=== PATIENT | female | born 1935 | race Caucasian/White ===

== ENCOUNTER 2019-07-05 06:47 | Outpatient (RCR) | payer MEDICARE, SELFPAY ==
--- NOTE | 2019-06-10 15:26 | ONC CON_ITS ---
Dr. Pascual New Patient Note Patient: Almita Woodward < Unit #: [id number]: 1935 Dicatated By: Yuni Pascual M.D.Date of Visit: June 10, 2019 Onc MED New Patient/Consult Referring Physician: Yon Cervantes History of Present Illness: Mrs. 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 Tumor size was 1.8 cm. With positive surgical margin involving inferior and medial peripheral margins, less than 1 mm from lateral peripheral margin and at least 1 mm from superior peripheral margin. No lymphovascular or perineural invasion seen. T1 Patient has seen medical oncologist Dr. Cervantes in [place] on 05/21/2019 and as per his recommendations, considering patient's age and comorbid conditions, she was not a candidate for further surgery for possible surgical margins and combined chemoradiation therapy was recommended with low dose oral Xeloda e.g. 625 mg/m??? twice a day concurrent with radiation therapy. Prescription for Xeloda was given and patient already received the medication and now waiting for radiation oncology evaluation to start combined chemoradiation for anal cancer. Pelvis done on 05/28/2019 showed no discrete and a mass visualized, mild infiltration of fat along right posterior lateral aspect of and is extending into subcutaneous fat and right inguinal lymphadenopathy size about 1.5 cm. No evidence of pelvic lymphadenopathy or ascites Underwent CT PET scan on 05/28/2019 which showed increased FDG uptake within 6;00 radiation of and is and hypermetabolic right inguinal lymph node, 2 x 1.4 cm with SUV of 6.2 , likely metastatic. No evidence of metastatic disease within chest and abdomen History of atrial fibrillation, depression, arthritis, thromboembolism, CVD, hypertension Patient denies any abdominal pain, denies any melena or hematochezia, denies any diarrhea or constipation, denies any jaundice, denies any poor appetite. Patient is hard of hearing on one side. But has history of off and on palpitation due to atrial fibrillation now being managed by cardiology in [place] Past Medical History: Ms. Jensens medical history consists of anxiety, arthritis, atrial fibrillation, cerebral vascular disease, gastroesophageal reflux disease, heart valve disorder, history of skin cancer, hypertension, and stroke. Past Surgical History: Ms. Martinez surgical/procedural history consists of cataract excision, cholecystectomy, hysterectomy, right ear surgery, and colonoscopy in 2019. Medications: Nitroglycerin 1 Tablet (of 0.4 mg) Tablet, sublingual Sublingual daily PRN, Oxybutynin Chloride 1 Tablet (of 5 mg) Oral b.i.d., Pantoprazole Sodium 1 Tablet (of 40 mg) Tablet, enteric coated Oral daily, Xarelto 1 Tablet (of 10 mg) Oral daily Allergies: Aspirin Social History: Ms. Woodward is single. Ms. Woodward quit smoking 60 years ago but had smoked for 1 year. She has no history of drinking. Ms. Woodward reports the following support systems: lives alone, lives in own house, supportive family/friends willing to assist with needs, and adequate transportation available for expected visits. Her diet consists of regular meals. She indicates her activity level as: regular exercise. Family History: Ms. Woodward's mother at age 85: lung cancer, and melanoma. Ms. Woodward's father at age 55: colon cancer, and suicide. Review Of Symptoms: Constitutional - Complains of lack of appetite, fatigue and lethargy. Denies fever, night sweats, rigors / chills and change in weight, Integumentary - Denies rash and urticaria, Cardiovascular - Complains of chest pain yesterday that was relieved with nitroglycerin. Denies orthopnea and palpitations, Respiratory - Complains of dyspnea with any activity. Denies cough and hemoptysis, Gastrointestinal - Denies constipation, diarrhea, heartburn / dyspepsia, nausea and vomiting, Genitourinary (F) - Complains of incontinence, nocturia and urgency. Denies dysuria and hematuria, Musculoskeletal - Denies bone pain, joint pain and decreased range of motion, Neurologic - Denies headaches and sensory problems, Psychiatric - Complains of depression which she feels is related to her diagnosis, Hematologic/Lymphatic - Complains of easy bruising, Constitutional - She has been feeling pretty tired. Her energy level is very low. She is able to do light housework. He appetite is has decreased recently but she has been able to eat. Her weight is stable. 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 She wears a hearing aid to her left ear. No sore mouth or throat. no sinus drainage, Hematologic/Lymphatic - She bruises easily. The patient denies any tender or palpable lymph nodes, Respiratory - She gets short of breath with any activity. No cough or hemoptysis, Cardiovascular - She had anginal chest pain yesterday that was relieved with Nitroglycerin. No palpitations or orthopnea, Gastrointestinal - No nausea, vomiting, diarrhea, GI bleeding, or constipation. No change in bowel habits, no heartburn or early satiety, Genitourinary (F) - No hematuria or dysuria. She has increased frequency at night. She also has urgency with incontinence, Musculoskeletal - No joint pain, swelling or redness. No decreased range of motion, Integumentary - No chronic rashes, inflammation, ulcerations or skin changes, Neurologic - No headache or visual changes. She has neuropathy in her hands and feet, Psychiatric - Her daughter feels she has some depression and anxiety related to her diagnosis. Vital Signs: Performed on June 10, 2019 14:01: 0, 2.20 (LOW), 2.20 sq.m, 144.8 in, 96 %, 63 /min, 118 /min (HIGH), 151/80 mm(hg) (HIGH), 97.7 F (LOW), and 65.5 lbs (HIGH). Performance Status: 1 - No physically strenuous activity, but ambulatory and able to carry out light or sedentary work (e.g. office work, light house work). (ECOG) Physical Examination: ENMT - no mouth sores or thrush, Respiratory - Lungs are clear to auscultation, Cardiovascular - irregular rate and rhythm, Abdomen - soft, bowel sounds present, Extremities - trace edema,. Lab/Imaging: Most recent lab results are not available for this patient. Impression: Invasive moderately differentiated squamous cell carcinoma per excisional biopsy done on 04/26/2019 final pathology report showed tumor size 1.8 cm, with a positive surgical margins involving deep margin and inferior and medial peripheral margins and less than 1 mm from lateral peripheral margin and at least 1 mm from superior peripheral margin. No lymphovascular or perineural invasion seen T1, CT PET scan showed increase uptake at 6:00 position of anus and right inguinal lymphadenopathy, 2 x 1.4 cm with SUV of 6.2, consistent with metastatic disease . No distant metastatic disease cN1a, Mx next Stage IIIa (T1,cN1a ,Mx) History of atrial fibrillation and history of thromboembolism, on Xarelto Plan: Discussed with patient and her daughter, regarding her disease status and pathology which confirmed an invasive moderately differentiated squamous cell carcinoma involving anus, CT PET scan showed increased uptake in right inguinal lymph node size 2 x 1.4 cm with SUV of 6.2 consistent with metastatic disease e.g.cN1a and no evidence of distant metastases. Considering patient's age and comorbid condition, combined chemoradiation therapy with low-dose oral Xeloda alone, 625 mg/m??? twice a day concurrent with radiation therapy, was recommended and prescribed by Dr. Yon Cervantes , medical oncologist in [place]. Due to convenience, patient has transferred her care to [place], [place]. Patient is scheduled to see radiation oncology today. Patient has already received Xeloda and ready to start concurrent with radiation therapy. All the side effect possible benefits associated with oral Xeloda including but not limited to mouth sores, diarrhea, liver toxicity, but skin rash, bone marrow suppression, [id number] syndrome were mentioned, further teaching will be done by chemotherapy nurse. Patient will see radiation oncology today and then we'll see her back 1 week after chemoradiation is initiated, with CBC CMP. Signed By: Yuni Pascual M.D. <<Signature on File>>
--- NOTE | 2019-06-11 | CT_ITS ---
Radiation Therapy Planning CT images; total exam DLP: 747.51 mGy-cm MTDD
--- NOTE | 2019-06-11 08:19 | N.ONRAD NP_ITS ---
Radiation Oncology New Patient Visit Patient: Almita Woodward MR#: [id number] : 1935> Age: 84> Sex: Female> Dictated by: Dr. Topher Joseph Date of Service: 06/10/2019 Referring Physician(s) : Yon Cervantes M.D. 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 She underwent local excision of her primary anal malignancy on May 03, 2019 we were asked to see her regarding the role of definitive radiation therapy in combination with Xeloda oral chemotherapy Radiotherapy to date: Summary > No prior radiation therapy. Chief Complaint / History of Present Illness: Ms. Almita Woodward is a independent relatively healthy 84-year-old woman. She noted painless rectal bleeding and a mass felt around the anus earlier this year. She was seen by her colorectal surgeon and underwent excision on May 03, 2019. This revealed grad2, moderately differentiated squamous cell carcinoma in a 1.8 cm tumor with involved inked deep margin and inferior and medial peripheral margins of resection less than 1 mm from the lateral peripheral margin at least 1 mm from the superior peripheral margin. No lympho-vascular or perineural invasion was noted. A p16 IHC assessment for HPV was not performed. Additional surgery was felt to be contraindicated as it would compromise anal sphincter function. Following surgery she has healed she has no bleeding or mass noted she has normal bowel function she continues to live on her own independently. PET CT scan on May 28, 2019 revealed region of increased uptake at the 6 o'clock position of the anus hypermetabolic right inguinal lymph node noted likely metastatic no evidence for metastatic disease was seen MRI of the pelvis from May 28, 2019 revealed no discrete anal mass mild infiltration of fat along the posterior lateral aspect of the anus extending into the subcutaneous fat right inguinal adenopathy noted. She is seen medical oncologist in [place] who recommendedlow dose Xeloda with radiation to avoid the toxicity of mitomycin-C. She has seen Dr. Pascual here who concurred with the use low-dose Xeloda in combination with radiation treatment Current Medications: Nitroglycerin, oxybutynin Chloride, pantoprazole Sodium, xarelto. Allergies: Aspirin. Medical History: - Anxiety, - arthritis, - atrial fibrillation, - cerebral vascular disease s/p TIA x 2 - gastroesophageal reflux disease, - heart valve disorder, - history of skin cancer, - hypertension, - stroke. No history of collagen vascular disease. No previous radiation therapy. Surgical History: Cataract excision, cholecystectomy, colonoscopy on 05/03/2019, hysterectomy and right ear surgery. Family History: Father is at age 55 having experienced colon cancer, and suicide. Mother is at age 85 having experienced lung cancer, and melanoma. Social History: Last screened on 06/10/2019 - Yes - but has quit for 60 years. Smoked for 1 year. Last screened on 06/10/2019 - Never drank. Patient indicated access to the following support systems: lives alone, lives in own house, supportive family/friends willing to assist with needs, and adequate transportation available for expected visits. Patient indicated the following nutritional habits: regular meals. Patient indicated participation in the following forms of activity: regular exercise. 3 times. Lives on her own in her own home. 4 stepchildren. 1 daughter Leena who lives nearby. Denies cigarette or alcohol use. 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 She enjoys gardening. She continues to drive a car and maintain her own household. Current Complaints / Review of Systems: Constitutional - Complains of lack of appetite, fatigue and lethargy. Denies fever, night sweats, rigors / chills and change in weight. Integumentary - Denies rash and urticaria. Cardiovascular - Complains of chest pain yesterday that was relieved with nitroglycerin. Denies orthopnea and palpitations. Respiratory - Complains of dyspnea with any activity. Denies cough and hemoptysis. Gastrointestinal - Denies constipation, diarrhea, heartburn / dyspepsia, nausea and vomiting. Genitourinary (F) - Complains of incontinence, nocturia and urgency. Denies dysuria and hematuria. Musculoskeletal - Denies bone pain, joint pain and decreased range of motion. Neurologic - Denies headaches and sensory problems. Psychiatric - Complains of depression which she feels is related to her diagnosis. Hematologic/Lymphatic - Complains of easy bruising.. Vital Signs: Performed on 06/10/2019 2:01 PM Height - 144.8 in, Weight - 65.5 lbs (high), BSA - 2.20 sq.m, BMI - 2.20 (low), Temperature - 97.7 f (low), Pulse - 63 /min, Respiration - 118 /min (high), O2 Sat - 96 %, Pain - 0 and BP - 151/ 80 mm(hg)(high/). Physical Exam: Pleasant alert cooperative woman in no acute distress. Lymph nodes. She had right inguinal lymph node palpable approximately 1 cm in size Nol left inguinal adenopathy Heart irregular with no murmur Lungs clear to auscultation Abdominal examination unremarkable Rectal examination revealed a small 5 mm area of granulation tissue posteriorly consistent with healing resection with no surrounding erythema or discharge no mass finger examination revealed no granularity or masses felt, anal sphincter tone was good Extremities revealed no clubbing cyanosis or edema Neurologic examination revealed no deficits. Performance Status: 1 - No physically strenuous activity, but ambulatory and able to carry out light or sedentary work (e.g. office work, light house work). (ECOG) Pathology: Pathology revealed squamous cell carcinoma of the anus with involved margins as noted above Lab: No laboratory studies were available yet. Imaging: See HPI Impression: In summary stage IIIa (T1 N1 M0) squamous cell carcinoma the anus. Her primary lesion was excised with involved margins. Additional surgery is contraindicated as it would risk compromising the sphincter function. She has minimal inguinal adenopathy on PET CT examination and physical examination. She is a good candidate for definitive radiation therapy with modest sensitizing chemotherapy. I outlined the acute toxicities of treatment including symptomatic desquamation of the perianal region with the patient and her daughter. She understood that risk. I also outlined that combined modality treatment has an excellent chance for durable local control. We will endeavor to simulate her within the next week with treatment to follow. Plan: Signed by: 06/11/2019 8:17:01 AM <<Signature on File>> Time spent with patient: 60 min CPT Code: CPT Code:
--- NOTE | 2019-07-02 16:20 | ONCRAD TMN_ITS ---
Radiation Oncology Weekly Treatment Management Patient: Almita Woodward MR#: [id number] : 1935 Age: 84 Sex: Female Dictated by: Dr. Topher Joseph Date of Service: 07/02/2019 Referring Physician(s) : Yon Cervantes Primary Diagnosis: C21.0 - Malignant neoplasm of anus, unspecified, Diagnosed 06/10/2019 (Active) Stage IIIA, T1, N1, M0 Radiotherapy to date: Course: Pelvis anus, Treatment Site: [id number], Ref. ID: [id number], Energy: 6X, Dose/Fx (cGy): 185, #Fx: , Dose Correction (cGy): 0, Total Dose (cGy): 185, Start Date: 07/02/2019, Elapsed Days: 0 Current Complaints/Interval History: She just began treatment to her involved inguinal nodes and primary partially resected anal carcinoma today. She got the Xeloda by mail and is ready to begin combined treatment. Constitutional Complains of mild fatigue. Denies lack of appetite, fever and night sweats. Gastrointestinal Denies abdominal pain, constipation, diarrhea, heartburn / dyspepsia, hemorrhoids, melena / GI bleeding, nausea and vomiting. Genitourinary (F) Complains of nocturia gets up 1 time per night. Denies dysuria, frequency and urgency. Current Medications: Furosemide, nitroglycerin, oxybutynin Chloride, pantoprazole Sodium, valACYclovir HCl, xarelto, xeloda. Allergies: Aspirin. Vital Signs: Performed on 07/02/2019 3:15 PM BMI - 23.664 kg/m2 (high), Height - 65.50 in, Weight - 144.4 lbs, Temperature - 97.2 f, Pulse - 61, Respiration - 18, O2 Sat - 97 %, Pain - 0 and BP - 154/ 84 mm(hg)(high/). Physical Exam: Appears stable, no skin erythema or desquamation. Performance Status: 1 - No physically strenuous activity, but ambulatory and able to carry out light or sedentary work (e.g. office work, light house work). (ECOG) Lab: None pending in Radiation Oncology. Imaging: No new diagnostic imaging was performed since the last weekly treatment visit. All radiation therapy related imaging (including but not limited to kV, MV, and CBCT generated images) was reviewed. Appropriate changes, if any, were made to assure accurate target localization. Impression/Plan: Tolerating treatment well with expected side effects. Continue treatment as planned. CPT: 19247 Signed by: Dr. Topher Joseph>07/02/2019 4:19:47 PM <<Signature on File>>
[2019-07-03 15:59] LABS: Basophils % 0.4 %; Eosinophils # 0.1 10^3/uL (0.0-0.8); Eosinophils % 2.4 %; Hematocrit 43.2 % (37.0-47.0); Lymphocytes % 36.6 %; Mean Corpuscular HGB Conc 32.4 g/dL (30.0-36.0); Mean Corpuscular Hemoglobin 31.5 pg (28.0-34.0); Mean Corpuscular Volume 97.3 fL (81-99); Mean Platelet Volume 10.7 fL (7.4-10.4); Monocytes # 0.5 10^3/uL (0.2-0.9); Monocytes % 9.4 %; Neutrophils # 2.8 10^3/uL (1.8-7.7); Neutrophils % 50.8 %; Nucleated Red Blood Cells % 0 %; Platelet Count 167 10^3/cmm (130-400); Red Blood Count 4.44 10^6/uL (4.1-5.3); Red Cell Distribution Width 14.4 % (12.1-15.1); White Blood Count 5.4 10^3/uL (4.0-10.0)
[2019-07-03 16:24] LABS: Alanine Aminotransferase 11 U/L (0-33); Albumin Level 3.9 g/dL (3.5-5.2); Alkaline Phosphatase 117 IU/L (35-105); Aspartate Amino Transferase 19 U/L (0-32); Blood Urea Nitrogen 23 mg/dL (8-23); Carbon Dioxide 24 mmol/L (22-29); Chloride 105 mmol/L (98-107); Globulin 3.2 g/dL (1.3-4.6); Glucose 109 mg/dL (65-115); Osmolality Calculated 289 mOsm/kg (285-295); Sodium 141 mmol/L (136-145); Total Bilirubin 0.2 mg/dL (0.15-1.2); Total Protein 7.1 g/dL (6.6-8.7)
--- NOTE | 2019-07-07 22:09 | ONC FU_ITS ---
[facility] Patient Note Patient: Almita Woodward Unit #: [id number]: 1935 Dictated By: Leigh HuitronDate of Visit: July 02, 2019 Onc MED Follow-Up/Prog Note Chief Complaint: Anal cancer History of Present Illness: Mrs. Woodward is an 84-year-old female with a history of diarrhea and eventually developed rectal bleeding. She states she thought that was due to hemorrhoids. She was on Xarelto for a history of blood clots and atrial fibrillation Mrs Woodward was referred to a colorectal surgeon in [place]. She underwent colonoscopy which confirmed small polyp in the right colon and lesion in the perianal area. She then underwent excisional biopsy on 04/26/2019. 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 Tumor size was 1.8 cm. With positive surgical margin involving inferior and medial peripheral margins, less than 1 mm from lateral peripheral margin and at least 1 mm from superior peripheral margin. No lymphovascular or perineural invasion seen. T1 Mrs Woodward has seen a medical oncologist- Dr. Cervantes in [place] on 05/21/2019. As per his recommendations (considering patient's age and comorbid conditions), she was not a candidate for further surgery. She was offered combined chemoradiation therapy. Dr Cervantes recommended utilizing a low dose oral Xeloda e.g. 625 mg/m??? twice a day concurrent with radiation therapy. Prescription for Xeloda was given per Dr Cervantes. She did not start the Xeloda until she started radiation therapy. MRI of the pelvis done on 05/28/2019 reported: no discrete anal mass visualized. Mild infiltration of fat along the right posterior lateral aspect of the anus extending into the subcutaneous fat along the inferior gluteal fold on the right is nonspecific and may be at least partially secondary to recent biopsy; clinical correlation recommended. Right inguinal lymphadenopathy. Mrs Woodward underwent CT PET scan on 05/28/2019 which showed increased uptake with and the 6 o'clock position of the anus which could be compatible with known anal cancer. Hypermetabolic right inguinal lymph node, likely metastatic. No evidence of metastatic disease within the chest or upper abdomen. The area of focal increased FDG uptake along the posterior/6:00 region of the anus with a maximum SUV of 5.2. Right inguinal adenopathy with a lymph node measuring 2.0 x 1.4 cm in the neck small SUV of 6.2. There is no suspicious osseous lesions noted. She did have thoracic/lumbar spondylosis no acute fractures and bones are osteopenic. PMH: History of atrial fibrillation, depression, arthritis, thromboembolism, CVD, hypertension Mrs Woodward had presented on June 19, 2019 to start treatment with chemoradiation. However, she and her daughter were upset due to a phone call from [place] saying she needed to come back up because she has something in her vagina that may need surgery . After much discussion and no clarification between Mrs Woodward and her daughter, I opted to delay starting her treatment until we could figure out what was going on. After multiple phone calls and faxes of pathology reports, it was determined that Mrs Woodward had had a coloposcopy per Dr. Elzbieta Jimenez (EDGING MACHINE SETTER) with biopsy of the vaginal cuff on 05/30/2019. The final diagnosis: vagina 9:00 biopsy high-grade squamous intraepithelial lesion space (HSIL/VaIN 2???3); vaginal nonacog No. 2 biopsy was benign squamous mucosa with areas of atrophy; vaginal biopsy at 3 o'clock position reported benign squamous mucosal with mild atrophic changes. The microscopic description reported after review of H&E stained slides, and his dull chemistry P 16 was performed on blocks A1 and B1 to evaluate the presence of severe dysplasia given history of anal squamous cell carcinoma and biopsy related tissue distortion which partially obscured the histologic time deemed. The area of concern on block A1 shows blocklike reactivity for P 16, consistent with severe dysplasia at that side however the focus in block B1 is negative, consistent with atrophy. After consulting with Dr Pascual and Dr Joseph in radiation oncology, Mrs Woodward was given clearance to start her treatment. Her treatment was delayed an additional week due to car and transportation issues. She is here today for her first treatment of radiation and to start her Xeloda. She has no new concerns today. She denies any fever or chills. She is had no signs or symptoms of infection for at least the last 72 hours. She states she is eating good. Her energy is no different than her normal, which is limited. She denies any shortness of breath or orthopnea. She has had no new pain. She denies any abdominal pain. She denies any rectal bleeding. She states her bowel and bladder are normal otherwise. Her ECOG is 2. Past Medical History: Anxiety Arthritis Atrial fibrillation Cerebral vascular disease Gastroesophageal reflux disease Heart valve disorder History of skin cancer Hypertension Stroke Past Surgical History: Cataract excision Cholecystectomy Hysterectomy Right ear surgery Colonoscopy in 2019 Allergies: Aspirin Medications: Furosemide 1 Tablet (of 20 mg) Oral daily Nitroglycerin 1 Tablet (of 0.4 mg) Tablet, sublingual Sublingual daily PRN Oxybutynin Chloride 1 Tablet (of 5 mg) Oral b.i.d. Pantoprazole Sodium 1 Tablet (of 40 mg) Tablet, enteric coated Oral daily Xarelto 1 Tablet (of 10 mg) Oral daily Xeloda 2 Tablet (of 500 mg) Oral daily Family History: Ms. Woodward's mother at age 85: lung cancer, and melanoma. Ms. Woodward's father at age 55: colon cancer, and suicide. Social History: Ms. Woodward is single. Ms. Woodward quit smoking 60 years ago but had smoked for 1 year. She has no history of drinking. Ms. Woodward reports the following support systems: lives alone, lives in own house, supportive family/friends willing to assist with needs, and adequate transportation available for expected visits. Her diet consists of regular meals. She indicates her activity level as: regular exercise. Review Of Symptoms: Constitutional Denies fevers, chills, night sweats, excessive fatigue or weight loss. Allergic/Immunologic No reactions. Eyes Denies significant visual changes. No diplopia. No amaurosis. ENMT Denies changes in hearing, sore throat, mouth sores, difficulty or changes in swallowing ability, and/or sinus drainage. Endocrine No diabetes, thyroid disease or hormone replacement. Denies hot flashes or night sweats. Hematologic/Lymphatic Denies easy bruising or bleeding. The patient denies any tender or palpable lymph nodes. Respiratory Denies dyspnea on exertion, chest pain, cough or hemoptysis. Denies orthopnea. Cardiovascular Denies anginal chest pain, palpitations or orthopnea. Gastrointestinal Denies nausea, vomiting, diarrhea, GI bleeding, or constipation. Denies change in bowel habits and/or stool color, no heartburn or early satiety. Genitourinary (F) No hematuria, hesitancy, incontinence, vaginal bleeding, discharge or other problems with urination. Musculoskeletal Denies joint pain, swelling or redness. No decreased range of motion. Integumentary Denies chronic rashes, inflammation, ulcerations or skin changes. Neurologic Denies headache, blurred vision, and no areas of focal weakness or numbness. Normal gait. No sensory problems. Psychiatric Denies insomnia, depression, nicolas or mood swings. Constitutional Complains of mild fatigue. Denies lack of appetite, fever and night sweats. Gastrointestinal Denies abdominal pain, constipation, diarrhea, heartburn / dyspepsia, hemorrhoids, melena / GI bleeding, nausea and vomiting. Genitourinary (F) Complains of nocturia gets up 1 time per night. Denies dysuria, frequency and urgency. Vital Signs: Performed on July 02, 2019 15:15 Height - 65.50 in Weight - 144.4 lbs Temperature - 97.2 F Pulse - 61 Respiration - 18 BP - 154/84 mm(hg) (HIGH) O2 Sat - 97 % Pain - 0 Performed on July 02, 2019 15:15 BMI - 23.664 kg/m2 (HIGH),2 - Ambulatory/capable of all self-care, unable to perform any work activities. Up and about more than 50% of waking hours. (ECOG) Physical Examination: Constitutional Alert, oriented, no acute distress. Skin pink, warm and dry. Head Normocephalic; atraumatic. Eyes Conjunctivae and sclerae are clear and without icterus. Pupils are reactive and equal. ENMT No oral exudates, ulcers, masses, thrush or mucositis. Oropharynx clear. Tongue normal. Neck Supple without masses or thyromegaly. No jugular venous distension. Hematologic/Lymphatic No petechiae or purpura. No tender or palpable lymph nodes in the cervical or supraclavicular areas. Respiratory Lungs are clear to auscultation without rhonchi or wheezing. Cardiovascular Regular rate and rhythm of heart without murmurs,clicks, gallops or rubs. Abdomen Non-tender, non-distended, no masses or ascites. Good bowel sounds noted in all quads. No guarding or rebound tenderness. No pulsatile masses. Back/Spine Non-tender to palpation. Extremities No visible deformities, no cyanosis, clubbing or edema. Musculoskeletal No tenderness or swelling, normal range of motion without obvious weakness. Integumentary No rashes or lesions. Neurologic No sensory or motor deficits, normal cerebellar function, normal gait. Psychiatric Alert and oriented times three. Coherent speech. Verbalizes understanding of our discussions today. Impression: Invasive moderately differentiated squamous cell carcinoma per excisional biopsy done on 04/26/2019 final pathology report showed tumor size 1.8 cm, with a positive surgical margins involving deep margin and inferior and medial peripheral margins and less than 1 mm from lateral peripheral margin and at least 1 mm from superior peripheral margin. No lymphovascular or perineural invasion seen T1, CT PET scan showed increase uptake at 6:00 position of anus and right inguinal lymphadenopathy, 2 x 1.4 cm with SUV of 6.2, consistent with metastatic disease . No distant metastatic disease cN1a, Mx next Stage IIIa (T1,cN1a ,Mx) History of atrial fibrillation and history of thromboembolism, on Xarelto Dr Pascual discussed with the patient and her daughter, regarding her disease status and pathology which confirmed an invasive moderately differentiated squamous cell carcinoma involving anus, CT PET scan showed increased uptake in right inguinal lymph node size 2 x 1.4 cm with SUV of 6.2 consistent with metastatic disease e.g.cN1a and no evidence of distant metastases. Mrs Woodward had presented on June 19, 2019 to start treatment with chemoradiation. However, she and her daughter were upset due to a phone call from [place] saying she needed to come back up because she has something in her vagina that may need surgery . After much discussion and no clarification between Mrs Woodward and her daughter, I opted to delay starting her treatment until we could figure out what was going on. After multiple phone calls and faxes of pathology reports, it was determined that Mrs Woodward had had a coloposcopy per Dr. Elzbieta Jimenez (EDGING MACHINE SETTER) with biopsy of the vaginal cuff on 05/30/2019. The final diagnosis: vagina 9:00 biopsy high-grade squamous intraepithelial lesion space (HSIL/VaIN 2???3); vaginal nonacog No. 2 biopsy was benign squamous mucosa with areas of atrophy; vaginal biopsy at 3 o'clock position reported benign squamous mucosal with mild atrophic changes. The microscopic description reported after review of H&E stained slides, and his dull chemistry P 16 was performed on blocks A1 and B1 to evaluate the presence of severe dysplasia given history of anal squamous cell carcinoma and biopsy related tissue distortion which partially obscured the histologic time deemed. The area of concern on block A1 shows blocklike reactivity for P 16, consistent with severe dysplasia at that side however the focus in block B1 is negative, consistent with atrophy. After consulting with Dr Pascual and Dr Joseph in radiation oncology, Mrs Woodward was given clearance to start her treatment. Her treatment was delayed an additional week due to car and transportation issues. She is here today for her first treatment of radiation and to start her Xeloda. Plan: 1. Proceed with Xeloda 500 mg tablets (2) tablets twice daily on the days of radiation only. 2. Compazine and Ativan as needed for antiemetics at home. 3. I have asked for baseline CBC CMP today. 4. She was advised that we will need to see her weekly with CBC CMP. 5. AVOID GRAPEFRUIT PRODUCTS WITH XELODA 6. Mrs Woodward was encouraged to let us know if she has any diarrhea or skin changes or mouth sores. 7. The patient and family were informed of chemotherapy plan and specific drugs were discussed. We also discussed how chemotherapy works and identified common side effects including hand-foor syndrome (PPE); alopecia; myelosuppression-including neutropenia, anemia, thrombocytopenia; peripheral neuropathy; fatigue; nausea; diarrhea; constipation; bleeding or bruising; skin changes-rash/dryness; mouth sores; drug hypersensitivity/allergic reactions or anaphylaxis and increased risk of blood clots. They have also been informed how to contact the clinic with side effects or symptoms, including but not limited to fever greater than 100.4???, chills, sore throat, bleeding or bruising that is not explained or mouth sores, cough, nasal discharge, diarrhea, constipation, nausea and/or vomiting not relieved with medications on hand at home, as well as any other concern or question they may have. Our hours are 8:00 a.m. to 4:30 p.m. on Monday through and 8-12:00 on Monday. However, someone is electronics parts sales representative 24 hours per day and they have been advised to contact the [facility] at if it is after hours. We have also discussed potential long-term side effects of chemotherapy including secondary cancers, infertility, pulmonary complications, cardiac complications, and again peripheral neuropathy. We have discussed that they certainly need to let us know before taking any antioxidants or herbal or further dietary supplements, as we are unsure of how these agents react with chemotherapy and we request that they avoid these products for now. They were informed that it is okay to take multivitamins at normal doses. They verbally state that they understand to take all medications as directed by their healthcare provider unless otherwise indicated. They have no questions and verbalized understanding and are willing to proceed with chemotherapy at this time. The majority of this visit (greater than 45 minutes) was spent in face to face communication with this patient and/or his/her family in regards to plan of care, side effect identification and management. Signed By: Leigh Huitron-, CNP Yuni Pascual MD <<Signature on File>>
== END 2019-07-07 23:59 | disposition home or self-care (01) ==
LOC: ONCMED 06:47
PROVIDERS: Absent Provider Radiology Radiation Oncology; PCP Chiropractor Orthopedic; Visit Provider Radiology Radiation Oncology
DX: Z51.0 Encounter for antineoplastic radiation therapy (principal); C21.0 Malignant neoplasm of anus, unspecified; R59.0 Localized enlarged lymph nodes; R87.623 High grade squamous intraepithelial lesion on cytologic smear of vagina (HGSIL); I48.91 Unspecified atrial fibrillation; Z86.718 Personal history of other venous thrombosis and embolism; Z79.01 Long term (current) use of anticoagulants; Z79.899 Other long term (current) drug therapy; Z87.891 Personal history of nicotine dependence
CPT/HCPCS: 36415; 77300; 77301; 77334; 77338; 77386; 77470; 80053; 85025; 99205; 99215; G0463

== ENCOUNTER 2019-08-06 06:53 | Outpatient (RCR) | payer MEDICARE, SELFPAY ==
[2019-07-08 15:37] LABS: Basophils % 0.2 %; Eosinophils # 0.1 10^3/uL (0.0-0.8); Eosinophils % 1.6 %; Hematocrit 41.3 % (37.0-47.0); Hemoglobin 13.4 g/dL (11.5-15.3); Lymphocytes # 1.8 10^3/uL (0.8-4.8); Lymphocytes % 29.1 %; Mean Corpuscular HGB Conc 32.4 g/dL (30.0-36.0); Mean Corpuscular Hemoglobin 31.5 pg (28.0-34.0); Mean Corpuscular Volume 97.2 fL (81-99); Mean Platelet Volume 10.6 fL (7.4-10.4); Monocytes # 0.6 10^3/uL (0.2-0.9); Monocytes % 9.2 %; Neutrophils # 3.6 10^3/uL (1.8-7.7); Neutrophils % 59.6 %; Nucleated Red Blood Cells % 0 %; Platelet Count 181 10^3/cmm (130-400); Red Blood Count 4.25 10^6/uL (4.1-5.3); Red Cell Distribution Width 14.3 % (12.1-15.1); White Blood Count 6.1 10^3/uL (4.0-10.0)
[2019-07-08 16:01] LABS: Alanine Aminotransferase 11 U/L (0-33); Albumin Level 3.6 g/dL (3.5-5.2); Alkaline Phosphatase 102 IU/L (35-105); Anion Gap 16.9 (5-19); Aspartate Amino Transferase 22 U/L (0-32); Blood Urea Nitrogen 20 mg/dL (8-23); Calcium 9.7 mg/dL (8.5-10.5); Carbon Dioxide 22 mmol/L (22-29); Chloride 106 mmol/L (98-107); Globulin 3.6 g/dL (1.3-4.6); Glucose 125 mg/dL (65-115); Osmolality Calculated 290 mOsm/kg (285-295); Potassium 3.9 mmol/L (3.5-5.1); Sodium 141 mmol/L (136-145); Total Bilirubin 0.5 mg/dL (0.15-1.2); Total Protein 7.2 g/dL (6.6-8.7)
--- NOTE | 2019-07-10 17:31 | ONCRAD TMN_ITS ---
Radiation Oncology Weekly Treatment Management Patient: Almita Woodward MR#: [id number] : 1935 Age: 84 Sex: Female Dictated by: Dr. Topher Joseph Date of Service: 07/10/2019 Referring Physician(s) : Yon Cervantes Primary Diagnosis: C21.0 - Malignant neoplasm of anus, unspecified, Diagnosed 06/10/2019 (Active) Stage IIIA, T1, N1, M0 Radiotherapy to date: Course: Pelvis anus, Treatment Site: [id number], Ref. ID: [id number], Energy: 6X, Dose/Fx (cGy): 185, #Fx: , Dose Correction (cGy): 0, Total Dose (cGy): 1,295, Start Date: 07/02/2019, Elapsed Days: 8 Current Complaints/Interval History: She notes some urgency with bowel movements and transient abdominal pain prior to passing a bowel movement. No pain on defecation. No diarrhea. Urination is okay. She is tolerating oral chemotherapy well. Constitutional Complains of mild fatigue. Denies lack of appetite, fever, night sweats and change in weight. Integumentary No rectal bleeding or irritation Gastrointestinal Complains of abdominal pain which happens just prior to having a BM. Denies constipation, diarrhea, heartburn / dyspepsia, hemorrhoids, melena / GI bleeding, nausea and vomiting. Genitourinary (F) Complains of nocturia gets up 1 time per night. Denies dysuria, frequency, urgency, vaginal discharge / bleeding and vaginal spotting. Current Medications: Furosemide, nitroglycerin, oxybutynin Chloride, pantoprazole Sodium, xarelto, xeloda. Allergies: Aspirin. Vital Signs: Performed on 07/10/2019 3:35 PM BMI - 24.516 kg/m2 (high), Height - 65.50 in, Weight - 149.6 lbs, Temperature - 98.0 f, Pulse - 60, Respiration - 20, O2 Sat - 97 %, Pain - 0 and BP - 128/ 75 mm(hg). Physical Exam: Appears stable, no skin erythema or desquamation. Performance Status: 2 - Ambulatory/capable of all self-care, unable to perform any work activities. Up and about more than 50% of waking hours. (ECOG) Lab: None pending in Radiation Oncology. Imaging: No new diagnostic imaging was performed since the last weekly treatment visit. All radiation therapy related imaging (including but not limited to kV, MV, and CBCT generated images) was reviewed. Appropriate changes, if any, were made to assure accurate target localization. Impression/Plan: Tolerating treatment well with expected side effects. Continue treatment as planned. CPT: 44953 Signed by: Dr. Topher Joseph>07/10/2019 5:29:41 PM <<Signature on File>>
--- NOTE | 2019-07-16 16:07 | N.ONRAD NP_ITS ---
Radiation Oncology Weekly Treatment Management Patient: Almita Woodward MR#: [id number] : 1935> Age: 84> Sex: Female Dictated by: Yodit Brody Date of Service: 07/16/2019 Referring Physician(s) : Yon Cervantes M.D. Diagnosis: C21.0 - Malignant neoplasm of anus, unspecified, Diagnosed 06/10/2019 (Active) Stage IIIA, T1, N1, M0 Patient presents today for check-up by registered nurse. The patients has had Course: Pelvis anus, Treatment Site: [id number], Ref. ID: [id number], Energy: 6X, Dose/Fx (cGy): 185, #Fx: , Dose Correction (cGy): 0, Total Dose (cGy): 2,035, Start Date: 07/02/2019, Elapsed Days: 14. Patient Denies any problems at this time Has complaint of rash on her face, arms, and trunk. I have addressed complaints by talking to Maya JUNG regarding the rash as she is on Xeloda. Per Maya she does not want her to take her Xeloda until she sees Dr. Pascual tomorrow. The patient and the daughter acknowledged understanding and had no other questions. Nursing assessment of patient as follows: Constitutional Complains of mild fatigue. Denies lack of appetite, fever and night sweats. Integumentary Complains of rash which is located on her face, arms, and trunk.. Has no redness to the rectal area. Gastrointestinal Complains of occasional constipation. Denies abdominal pain, diarrhea, heartburn / dyspepsia, melena / GI bleeding, nausea and vomiting. Genitourinary (F) Complains of nocturia gets up about 1 time per night. Denies dysuria, frequency, hematuria and urgency. Questions encouraged and answered. I encouraged patient to call with any concerns. Patient verbalized understanding and denied any further needs at this time. Vital Signs: Performed on 07/16/2019 3:46 PM BMI - 24.352 kg/m2 (high), Height - 65.50 in, Weight - 148.6 lbs, Temperature - 97.8 f, Pulse - 64, Respiration - 20, O2 Sat - 97 %, Pain - 0 and BP - 146/ 67 mm(hg)(high/). Signed by: Yodit Brody>07/16/2019 4:05:36 PM <<Signature on File>>
--- NOTE | 2019-07-18 12:41 | ONC FU_ITS ---
Dr. Pascual follow up note Patient: Almita Woodward Unit #: [id number]: 1935 Dicatated By: Yuni Pascual M.D.Date of Visit:Jul 17, 2019 Onc Med Follow-up/Prog Note History of Present Illness: Mrs. Woodward is a 84-year-old female with a history of diarrhea and eventually developed rectal bleeding. She states she thought that was due to hemorrhoids. She was on Xarelto for a history of blood clots and atrial fibrillation Mrs Woodward was referred to a colorectal surgeon in [place]. She underwent colonoscopy which confirmed small polyp in the right colon and lesion in the perianal area. She then underwent excisional biopsy on 04/26/2019. 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 Tumor size was 1.8 cm. With positive surgical margin involving inferior and medial peripheral margins, less than 1 mm from lateral peripheral margin and at least 1 mm from superior peripheral margin. No lymphovascular or perineural invasion seen. T1 Mrs Woodward has seen a medical oncologist- Dr. Cervantes in [place] on 05/21/2019. As per his recommendations (considering patient's age and comorbid conditions), she was not a candidate for further surgery. She was offered combined chemoradiation therapy. Dr Cervantes recommended utilizing a low dose oral Xeloda e.g. 625 mg/m??? twice a day concurrent with radiation therapy. Prescription for Xeloda was given per Dr Cervantes. She did not start the Xeloda until she started radiation therapy. MRI of the pelvis done on 05/28/2019 reported: no discrete anal mass visualized. Mild infiltration of fat along the right posterior lateral aspect of the anus extending into the subcutaneous fat along the inferior gluteal fold on the right is nonspecific and may be at least partially secondary to recent biopsy; clinical correlation recommended. Right inguinal lymphadenopathy. Mrs Woodward underwent CT PET scan on 05/28/2019 which showed increased uptake with and the 6 o'clock position of the anus which could be compatible with known anal cancer. Hypermetabolic right inguinal lymph node, likely metastatic. No evidence of metastatic disease within the chest or upper abdomen. The area of focal increased FDG uptake along the posterior/6:00 region of the anus with a maximum SUV of 5.2. Right inguinal adenopathy with a lymph node measuring 2.0 x 1.4 cm in the neck small SUV of 6.2. There is no suspicious osseous lesions noted. She did have thoracic/lumbar spondylosis no acute fractures and bones are osteopenic. PMH: History of atrial fibrillation, depression, arthritis, thromboembolism, CVD, hypertension Mrs Woodward had presented on June 19, 2019 to start treatment with chemoradiation. However, she and her daughter were upset due to a phone call from [place] saying she needed to come back up because she has something in her vagina that may need surgery . After much discussion and no clarification between Mrs Woodward and her daughter, I opted to delay starting her treatment until we could figure out what was going on. After multiple phone calls and faxes of pathology reports, it was determined that Mrs Woodward had had a coloposcopy per Dr. Elzbieta Jimenez ([employer]CH[employer]ICIAN) with biopsy of the vaginal cuff on 05/30/2019. The final diagnosis: vagina 9:00 biopsy high-grade squamous intraepithelial lesion space (HSIL/VaIN 2???3); vaginal nonacog No. 2 biopsy was benign squamous mucosa with areas of atrophy; vaginal biopsy at 3 o'clock position reported benign squamous mucosal with mild atrophic changes. The microscopic description reported after review of H&E stained slides, and his dull chemistry P 16 was performed on blocks A1 and B1 to evaluate the presence of severe dysplasia given history of anal squamous cell carcinoma and biopsy related tissue distortion which partially obscured the histologic time deemed. The area of concern on block A1 shows blocklike reactivity for P 16, consistent with severe dysplasia at that side however the focus in block B1 is negative, consistent with atrophy. . Her treatment was delayed an additional week due to car and transportation issues. Eventually started Combined chemoradiation with oral Xeloda on July 02, 2019 . As per patient she noted some facial rash and some spots on the back she thinks is due to poison geehta and now responding well to antihistaminic but her Xeloda was put on hold as there was a concern regarding chemotherapy-induced skin rash. Patient denies any mouth sores patient denies any jaundice patient denies any diarrhea or constipation patient denies any shortness of breath. Patient denies any hand-foot syndrome patient denies any rash on the trunk but on the forearm and on the face Came for follow-up, denies any specific complaints, her facial rash is improving now and rash on her forearms has almost gone. Otherwise no mouth sores, no diarrhea, no shortness of breath, no dysphagia, no rash on her palm or sole. No fever or chills, no nausea or vomiting. Tolerating combined chemoradiation well except oral Xeloda was put on hold recently because of concerns about rash on her face and forearm. Medications: Benadryl Allergy 3 Tablet (of 25 mg) Oral at bedtime, Furosemide 1 Tablet (of 20 mg) Oral daily, Nitroglycerin 1 Tablet (of 0.4 mg) Tablet, sublingual Sublingual daily PRN, Oxybutynin Chloride 1 Tablet (of 5 mg) Oral b.i.d., Pantoprazole Sodium 1 Tablet (of 40 mg) Tablet, enteric coated Oral daily, Xarelto 1 Tablet (of 10 mg) Oral daily, Xeloda 2 Tablet (of 500 mg) Oral daily Allergies: Aspirin Review of Systems: Review of Systems is not available for this patient. Vital Signs: Performed on Jul 17, 2019 15:40 Height - 65.50 in Temperature - 97.9 F (LOW) Pulse - 56 /min (LOW) Respiration - 20 /min BP - 157/73 mm(hg) (HIGH) O2 Sat - 97 % Pain - 0 Performance Status: 1 - No physically strenuous activity, but ambulatory and able to carry out light or sedentary work (e.g. office work, light house work). (ECOG) Physical Examination: ENMT - No mouth sores, no thrush, no jaundice, Respiratory - Lungs are clear to auscultation, Cardiovascular - Regular rate and rhythm of heart, Abdomen - Soft, bowel sounds present, nontender, Extremities - No visible edema but mild erythematous rash involving upper extremity with fading margin and also on the forehead nose and bilateral cheeks, now improving. Lab/Imaging: Test performed on Jul 08, 2019 15:20 Sodium 141 mmol/L Potassium 3.9 mmol/L Chloride 106 mmol/L CO2 22 mmol/L Anion Gap 16.9 BUN 20 mg/dL Creatinine 0.9 mg/dL Cr Clearance (Est) 47.1900 mL/min Glucose 125 mg/dL Calcium 9.7 mg/dL Protein, Total 7.2 g/dL Albumin 3.6 g/dL Globulin 3.6 g/dL Bilirubin, Total 0.5 mg/dL ALT (SGPT) 11 U/L AST (SGOT) 22 U/L Alkaline Phosphatase 102 IU/L WBC 6.1 10 3/uL RBC 4.25 10 6/uL HGB 13.4 g/dL HCT 41.3 % MCV 97.2 fL MCH 31.5 pg MCHC 32.4 g/dL RDW 14.3 % Platelet Count 181 10 3/cmm MPV 10.6 fL Neutrophils 3.6 10 3/uL Lymphocytes 1.8 10 3/uL Monocytes 0.6 10 3/uL Eosinophils 0.1 10 3/uL Basophils 0.0 10 3/uL Neutrophil % 59.6 % Lymphocyte % 29.1 % Monocyte % 9.2 % Eosinophil % 1.6 % Basophils % 0.2 % Impression: Invasive moderately differentiated squamous cell carcinoma per excisional biopsy done on 04/26/2019 final pathology report showed tumor size 1.8 cm, with a positive surgical margins involving deep margin and inferior and medial peripheral margins and less than 1 mm from lateral peripheral margin and at least 1 mm from superior peripheral margin. No lymphovascular or perineural invasion seen T1, CT PET scan showed increase uptake at 6:00 position of anus and right inguinal lymphadenopathy, 2 x 1.4 cm with SUV of 6.2, consistent with metastatic disease . No distant metastatic disease cN1a, Mx next Stage IIIa (T1,cN1a ,Mx) History of atrial fibrillation and history of thromboembolism, on Xarelto discussed with the patient and her daughter, regarding her disease status and pathology which confirmed an invasive moderately differentiated squamous cell carcinoma involving anus, CT PET scan showed increased uptake in right inguinal lymph node size 2 x 1.4 cm with SUV of 6.2 consistent with metastatic disease e.g.cN1a and no evidence of distant metastases. Mrs Woodward had presented on June 19, 2019 to start treatment with chemoradiation. However, she and her daughter were upset due to a phone call from [place] saying she needed to come back up because she has something in her vagina that may need surgery . After much discussion and no clarification between Mrs Woodward and her daughter, I opted to delay starting her treatment until we could figure out what was going on. After multiple phone calls and faxes of pathology reports, it was determined that Mrs Woodward had had a coloposcopy per Dr. Elzbieta Jimenez ([employer] TECHNICIAN) with biopsy of the vaginal cuff on 05/30/2019. The final diagnosis: vagina 9:00 biopsy high-grade squamous intraepithelial lesion space (HSIL/VaIN 2???3); vaginal nonacog No. 2 biopsy was benign squamous mucosa with areas of atrophy; vaginal biopsy at 3 o'clock position reported benign squamous mucosal with mild atrophic changes. The microscopic description reported after review of H&E stained slides, and his dull chemistry P 16 was performed on blocks A1 and B1 to evaluate the presence of severe dysplasia given history of anal squamous cell carcinoma and biopsy related tissue distortion which partially obscured the histologic time deemed. The area of concern on block A1 shows blocklike reactivity for P 16, consistent with severe dysplasia at that side however the focus in block B1 is negative, consistent with atrophy. Her treatment was delayed an additional week due to car and transportation issues. But eventually combined chemoradiation with oral Xeloda was started on July 02, 2019 Plan: Discussed with patient regarding her concern about facial rash and forearm which is improving with antihistaminic and comfort care no more itching, no oozing from the skin, no mouth sores or any other signs symptom related to chemotherapy toxicity. So her facial/forearm rash could be as patient mentioned from poison geetha or other possibility could be sun exposure while on oral Xeloda and probably due to chemotherapy. At this point will continue to hold her Xeloda till Monday as her rash is improving and if resolved completely by that time then we will start oral Xeloda on Monday again and watch her closely.In the meantime she will continue with her radiation therapy Patient was advised to avoid sun exposure or use sunscreen and if there is any sign of skin rash while being rechallenged with oral Xeloda, she need to stop oral Xeloda and call us immediately, otherwise we will see her back in 1 week with CBC CMP Signed By: Yuni Pascual M.D. <<Signature on File>>
[2019-07-23 15:32] LABS: Basophils % 0.7 %; Eosinophils # 0.2 10^3/uL (0.0-0.8); Eosinophils % 4.4 %; Hematocrit 40.6 % (37.0-47.0); Hemoglobin 13.1 g/dL (11.5-15.3); Lymphocytes # 1.2 10^3/uL (0.8-4.8); Lymphocytes % 22.9 %; Mean Corpuscular HGB Conc 32.3 g/dL (30.0-36.0); Mean Corpuscular Hemoglobin 31.5 pg (28.0-34.0); Mean Corpuscular Volume 97.6 fL (81-99); Mean Platelet Volume 10.4 fL (7.4-10.4); Monocytes # 0.6 10^3/uL (0.2-0.9); Monocytes % 11.3 %; Neutrophils # 3.3 10^3/uL (1.8-7.7); Neutrophils % 60.3 %; Nucleated Red Blood Cells % 0 %; Platelet Count 162 10^3/cmm (130-400); Red Blood Count 4.16 10^6/uL (4.1-5.3); Red Cell Distribution Width 15.1 % (12.1-15.1); White Blood Count 5.4 10^3/uL (4.0-10.0)
[2019-07-23 16:02] LABS: Alanine Aminotransferase 12 U/L (0-33); Albumin Level 3.7 g/dL (3.5-5.2); Alkaline Phosphatase 100 IU/L (35-105); Anion Gap 17.3 (5-19); Aspartate Amino Transferase 19 U/L (0-32); Blood Urea Nitrogen 15 mg/dL (8-23); Carbon Dioxide 26 mmol/L (22-29); Chloride 101 mmol/L (98-107); Globulin 3.6 g/dL (1.3-4.6); Glucose 104 mg/dL (65-115); Osmolality Calculated 287 mOsm/kg (285-295); Potassium 4.3 mmol/L (3.5-5.1); Sodium 140 mmol/L (136-145); Total Bilirubin 0.4 mg/dL (0.15-1.2); Total Protein 7.3 g/dL (6.6-8.7)
--- NOTE | 2019-07-23 16:42 | ONCRAD TMN_ITS ---
Radiation Oncology Weekly Treatment Management Patient: Almita Woodward MR#: [id number] : 1935> Age: 84> Sex: Female Dictated by: Dr. Theodore Arias Date of Service: 07/23/2019 Referring Physician(s) : Yon Cervantes Primary Diagnosis: C21.0 - Malignant neoplasm of anus, unspecified, Diagnosed 06/10/2019 (Active) Stage IIIA, T1, N1, M0 Radiotherapy to date: Course: Pelvis anus, Treatment Site: [id number], Ref. ID: [id number], Energy: 6X, Dose/Fx (cGy): 185, #Fx: , Dose Correction (cGy): 0, Total Dose (cGy): 2,960, Start Date: 07/02/2019, Elapsed Days: Current Complaints/Interval History: Ms. Zamora has completed 16 of 30 treatments for carcinoma of the anus. She is on oral Xeloda. She has not experienced any diarrhea. She has no dysuria or other bladder complaints. She has no troublesome skin discomfort in the inguinal areas or involving the vulva or perineum. She does complain of a skin reaction in the intergluteal fold. It is causing her moderate discomfort. She has applied multiple [id number] creams and ointments without discussing this issue with the radiation staff. Constitutional Complains of moderate fatigue. Denies lack of appetite, fever, night sweats and change in weight. Integumentary Has rectal irritation but no rectal bleeding Gastrointestinal Complains of nausea. Denies abdominal pain, constipation, diarrhea, heartburn / dyspepsia, melena / GI bleeding and vomiting. Genitourinary (F) Complains of nocturia gets up about 1 to 2 times per night. Denies dysuria, frequency, hematuria, urgency, vaginal discharge / bleeding and vaginal spotting. Current Medications: Benadryl Allergy, furosemide, nitroglycerin, oxybutynin Chloride, pantoprazole Sodium, xarelto, xeloda. Allergies: Aspirin. Vital Signs: Performed on 07/23/2019 3:56 PM BMI - 25.729 kg/m2 (high), Height - 65.50 in, Weight - 157.0 lbs, Temperature - 97.4 f, Pulse - 60, Respiration - 20, O2 Sat - 99 %, Pain - 0 and BP - 143/ 90 mm(hg)(high/). Physical Exam: Appears stable. Alert, oriented, no acute distress. Examination of the intergluteal fold reveals moderate erythema and moderate dry desquamation. The area of her surgery is healed. There are no lesions. The skin reaction is not excessive at all. Incidentally, she has a lesion on the side of her nose near the inner canthus of the eye which may be a basal cell carcinoma. Performance Status: 1 - No physically strenuous activity, but ambulatory and able to carry out light or sedentary work (e.g. office work, light house work). (ECOG) Lab: None pending in Radiation Oncology. Test performed on 07/08/2019 3:20 PM MPV - 10.6 fl (high), Cr Clearance (Est) - 47.1900 ml/min (low) and Glucose - 125 mg/dl (high). Imaging: No new diagnostic imaging was performed since the last weekly treatment visit. All radiation therapy related imaging (including but not limited to kV, MV, and CBCT generated images) was reviewed. Appropriate changes, if any, were made to assure accurate target localization. Impression/Plan: Tolerating treatment well with expected side effects. Continue treatment as planned. Apply Aquaphor and/or hydro cortisone ointment or cream to the area of skin reaction twice daily. I discussed gently cleansing the area prior to these applications. She does not have a bathtub and so will need to utilize the shower with warm water and soft stream of water. I also advised seeing a plastic surgeon for the lesion on her face. CPT: 16986 Signed by: Dr. Theodore Arias>07/23/2019 4:41:14 PM <<Signature on File>>
--- NOTE | 2019-07-28 17:33 | ONC FU_ITS ---
[facility] Patient Note Patient: Almita Woodward Unit #: [id number]: 1935 Dictated By: Leigh HuitronDate of Visit: Jul 24, 2019 Onc MED Follow-Up/Prog Note Chief Complaint: Anal cancer History of Present Illness: Mrs. Woodward is a 84-year-old female with a history of diarrhea and eventually developed rectal bleeding. She states she thought that was due to hemorrhoids. She was on Xarelto for a history of blood clots and atrial fibrillation Mrs Woodward was referred to a colorectal surgeon in [place]. She underwent colonoscopy which confirmed small polyp in the right colon and lesion in the perianal area. She then underwent excisional biopsy on 04/26/2019. 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 Tumor size was 1.8 cm. With positive surgical margin involving inferior and medial peripheral margins, less than 1 mm from lateral peripheral margin and at least 1 mm from superior peripheral margin. No lymphovascular or perineural invasion seen. T1 Mrs Woodward has seen a medical oncologist- Dr. Cervantes in [place] on 05/21/2019. As per his recommendations (considering patient's age and comorbid conditions), she was not a candidate for further surgery. She was offered combined chemoradiation therapy. Dr Cervantes recommended utilizing a low dose oral Xeloda e.g. 625 mg/m??? twice a day concurrent with radiation therapy. Prescription for Xeloda was given per Dr Cervantes. She did not start the Xeloda until she started radiation therapy. MRI of the pelvis done on 05/28/2019 reported: no discrete anal mass visualized. Mild infiltration of fat along the right posterior lateral aspect of the anus extending into the subcutaneous fat along the inferior gluteal fold on the right is nonspecific and may be at least partially secondary to recent biopsy; clinical correlation recommended. Right inguinal lymphadenopathy. Mrs Woodward underwent CT PET scan on 05/28/2019 which showed increased uptake with and the 6 o'clock position of the anus which could be compatible with known anal cancer. Hypermetabolic right inguinal lymph node, likely metastatic. No evidence of metastatic disease within the chest or upper abdomen. The area of focal increased FDG uptake along the posterior/6:00 region of the anus with a maximum SUV of 5.2. Right inguinal adenopathy with a lymph node measuring 2.0 x 1.4 cm in the neck small SUV of 6.2. There is no suspicious osseous lesions noted. She did have thoracic/lumbar spondylosis no acute fractures and bones are osteopenic. PMH: History of atrial fibrillation, depression, arthritis, thromboembolism, CVD, hypertension Mrs Woodward had presented on June 19, 2019 to start treatment with chemoradiation. However, she and her daughter were upset due to a phone call from [place] saying she needed to come back up because she has something in her vagina that may need surgery . After much discussion and no clarification between Mrs Woodward and her daughter, I opted to delay starting her treatment until we could figure out what was going on. After multiple phone calls and faxes of pathology reports, it was determined that Mrs Woodward had had a coloposcopy per Dr. Elzbieta Jimenez (PEDIATRIC ONCOLOGY NURSE) with biopsy of the vaginal cuff on 05/30/2019. The final diagnosis: vagina 9:00 biopsy high-grade squamous intraepithelial lesion space (HSIL/VaIN 2???3); vaginal nonacog No. 2 biopsy was benign squamous mucosa with areas of atrophy; vaginal biopsy at 3 o'clock position reported benign squamous mucosal with mild atrophic changes. The microscopic description reported after review of H&E stained slides, and his dull chemistry P 16 was performed on blocks A1 and B1 to evaluate the presence of severe dysplasia given history of anal squamous cell carcinoma and biopsy related tissue distortion which partially obscured the histologic time deemed. The area of concern on block A1 shows blocklike reactivity for P 16, consistent with severe dysplasia at that side however the focus in block B1 is negative, consistent with atrophy. Her treatment was delayed an additional week due to car and transportation issues. Eventually, she started combined chemoradiation with oral Xeloda on July 02, 2019 . As per patient, she noted some facial rash and some spots on the back she thought it was due to poison geetha. It is responding well to antihistaminic but her Xeloda was put on hold as there was a concern regarding chemotherapy-induced skin rash. Mrs Woodward denies any mouth sores. She did not have any evidence of hand-foot syndrome. She had no reports of diarrhea. Ms. Woodward is here today for follow-up. Her daughter states that they resume the Xeloda at the same dose twice a day. She resumed on July 21. Her rash is not gotten any worse. This states that the same and possibly even a low bit better. She has had no diarrhea. She denies any mouth sores, sore throat or difficulty swallowing. She denies any skin dryness. Her appetite is good. Her energy is good. She states she goes barefooted frequently and has had no problems with her feet. She denies that they have been tender or red. She denies any taste changes. She states overall she feels pretty good. She has been working in her maria. She states that she has one that she wants to move because it is the most beautiful flower you ever seen but it stinks like all get up . She is wanting to relocate it so that she does not smell when she is on her front porch. Her ECOG is 0. Past Medical History: Anxiety Arthritis Atrial fibrillation Cerebral vascular disease Gastroesophageal reflux disease Heart valve disorder History of skin cancer Hypertension Stroke Past Surgical History: Cataract excision Cholecystectomy Hysterectomy Right ear surgery Colonoscopy in 2019 Allergies: Aspirin Medications: Benadryl Allergy 3 Tablet (of 25 mg) Oral at bedtime Furosemide 1 Tablet (of 20 mg) Oral daily Nitroglycerin 1 Tablet (of 0.4 mg) Tablet, sublingual Sublingual daily PRN Oxybutynin Chloride 1 Tablet (of 5 mg) Oral b.i.d. Pantoprazole Sodium 1 Tablet (of 40 mg) Tablet, enteric coated Oral daily Xarelto 1 Tablet (of 10 mg) Oral daily Xeloda 2 Tablet (of 500 mg) Oral daily Family History: Ms. Woodward's mother at age 85: lung cancer, and melanoma. Ms. Woodward's father at age 55: colon cancer, and suicide. Social History: Ms. Woodward is single. Ms. Woodward quit smoking 60 years ago but had smoked for 1 year. She has no history of drinking. Ms. Woodward reports the following support systems: lives alone, lives in own house, supportive family/friends willing to assist with needs, and adequate transportation available for expected visits. Her diet consists of regular meals. She indicates her activity level as: regular exercise. Review Of Symptoms: Constitutional Denies fevers, chills, night sweats, excessive fatigue or weight loss. Allergic/Immunologic No reactions. Eyes Denies significant visual changes. No diplopia. No amaurosis. ENMT Denies changes in hearing, sore throat, mouth sores, difficulty or changes in swallowing ability, and/or sinus drainage. Endocrine No diabetes, thyroid disease or hormone replacement. Denies hot flashes or night sweats. Hematologic/Lymphatic Denies easy bruising or bleeding. The patient denies any tender or palpable lymph nodes. Respiratory Denies dyspnea on exertion, chest pain, cough or hemoptysis. Denies orthopnea. Cardiovascular Denies anginal chest pain, palpitations or orthopnea. Gastrointestinal Denies nausea, vomiting, diarrhea, GI bleeding, or constipation. Denies change in bowel habits and/or stool color, no heartburn or early satiety. Genitourinary (F) No hematuria, hesitancy, incontinence, vaginal bleeding, discharge or other problems with urination. Musculoskeletal Denies joint pain, swelling or redness. No decreased range of motion. Integumentary Denies chronic rashes, inflammation, ulcerations or skin changes. Acute rash is better with antihistamines-not as itchy and no longer scratching it. Neurologic Denies headache, blurred vision, and no areas of focal weakness or numbness. Normal gait. No sensory problems. Psychiatric Denies insomnia, depression, nicolas or mood swings. Vital Signs: Performed on Jul 24, 2019 15:16 Height - 65.50 in Weight - 145.8 lbs (LOW) BSA - 1.74 sq.m BMI - 23.89 Temperature - 98.4 F Pulse - 89 /min Respiration - 17 /min BP - 151/81 mm(hg) (HIGH) O2 Sat - 97 % Pain - 0,0 - Fully active, able to carry on all predisease activities without restrictions. (ECOG) Physical Examination: Constitutional Alert, oriented, no acute distress. Skin pink, warm and dry. Head Normocephalic; atraumatic. Eyes Conjunctivae and sclerae are clear and without icterus. Pupils are reactive and equal. ENMT No oral exudates, ulcers, masses, thrush or mucositis. Oropharynx clear. Tongue normal. Neck Supple without masses or thyromegaly. No jugular venous distension. Hematologic/Lymphatic No petechiae or purpura. No tender or palpable lymph nodes in the cervical or supraclavicular areas. Respiratory Lungs are clear to auscultation without rhonchi or wheezing. Cardiovascular Regular rate and rhythm of heart without murmurs,clicks, gallops or rubs. Abdomen Non-tender, non-distended, no masses or ascites. Good bowel sounds noted in all quads. No guarding or rebound tenderness. No pulsatile masses. Back/Spine Non-tender to palpation. Extremities No visible deformities, no cyanosis, clubbing or edema. Musculoskeletal No tenderness or swelling, normal range of motion without obvious weakness. Integumentary Scattered, mildly red raised lesion on face and neck, but noted to be healing well Neurologic No sensory or motor deficits, normal cerebellar function, normal gait. Psychiatric Alert and oriented times three. Coherent speech. Verbalizes understanding of our discussions today. Laboratory:Test performed on Jul 23, 2019 15:14 Sodium 140 mmol/L Potassium 4.3 mmol/L Chloride 101 mmol/L CO2 26 mmol/L Anion Gap 17.3 BUN 15 mg/dL Creatinine 0.8 mg/dL Cr Clearance (Est) 53.0900 mL/min Glucose 104 mg/dL Calcium 9.0 mg/dL Protein, Total 7.3 g/dL Albumin 3.7 g/dL Globulin 3.6 g/dL Bilirubin, Total 0.4 mg/dL ALT (SGPT) 12 U/L AST (SGOT) 19 U/L Alkaline Phosphatase 100 IU/L WBC 5.4 10 3/uL RBC 4.16 10 6/uL HGB 13.1 g/dL HCT 40.6 % MCV 97.6 fL MCH 31.5 pg MCHC 32.3 g/dL RDW 15.1 % Platelet Count 162 10 3/cmm MPV 10.4 fL Neutrophils 3.3 10 3/uL Lymphocytes 1.2 10 3/uL Monocytes 0.6 10 3/uL Eosinophils 0.2 10 3/uL Basophils 0.0 10 3/uL Neutrophil % 60.3 % Lymphocyte % 22.9 % Monocyte % 11.3 % Eosinophil % 4.4 % Basophils % 0.7 % NRBC % 0 % Impression: Invasive moderately differentiated squamous cell carcinoma per excisional biopsy done on 04/26/2019 final pathology report showed tumor size 1.8 cm, with a positive surgical margins involving deep margin and inferior and medial peripheral margins and less than 1 mm from lateral peripheral margin and at least 1 mm from superior peripheral margin. No lymphovascular or perineural invasion seen T1, CT PET scan showed increase uptake at 6:00 position of anus and right inguinal lymphadenopathy, 2 x 1.4 cm with SUV of 6.2, consistent with metastatic disease . No distant metastatic disease cN1a, Mx next Stage IIIa (T1,cN1a ,Mx) History of atrial fibrillation and history of thromboembolism, on Xarelto discussed with the patient and her daughter, regarding her disease status and pathology which confirmed an invasive moderately differentiated squamous cell carcinoma involving anus, CT PET scan showed increased uptake in right inguinal lymph node size 2 x 1.4 cm with SUV of 6.2 consistent with metastatic disease e.g.cN1a and no evidence of distant metastases. Mrs Woodward had presented on June 19, 2019 to start treatment with chemoradiation. However, she and her daughter were upset due to a phone call from [place] saying she needed to come back up because she has something in her vagina that may need surgery . After much discussion and no clarification between Mrs Woodward and her daughter, I opted to delay starting her treatment until we could figure out what was going on. After multiple phone calls and faxes of pathology reports, it was determined that Mrs Woodward had had a coloposcopy per Dr. Elzbieta Jimenez (PEDIATRIC ONCOLOGY NURSE) with biopsy of the vaginal cuff on 05/30/2019. The final diagnosis: vagina 9:00 biopsy high-grade squamous intraepithelial lesion space (HSIL/VaIN 2???3); vaginal nonacog No. 2 biopsy was benign squamous mucosa with areas of atrophy; vaginal biopsy at 3 o'clock position reported benign squamous mucosal with mild atrophic changes. The microscopic description reported after review of H&E stained slides, and his dull chemistry P 16 was performed on blocks A1 and B1 to evaluate the presence of severe dysplasia given history of anal squamous cell carcinoma and biopsy related tissue distortion which partially obscured the histologic time deemed. The area of concern on block A1 shows blocklike reactivity for P 16, consistent with severe dysplasia at that side however the focus in block B1 is negative, consistent with atrophy. Her treatment was delayed an additional week due to car and transportation issues But eventually combined chemoradiation with oral Xeloda was started on July 02, 2019. Her Xeloda was placed on hold due to concerns about a facial rash and forearm rash. He did improve with antihistamine and holding the Xeloda. Mrs. Woodward is convinced that it was from Inbil[place]. She states that someone had been mowing her yard and she was getting down when in some of the grass blown on her . She had been out in her yard quite a bit as well without any some protection. We discussed using covering such as hat long sleeves and sunscreen. She states she grew up and all of her life has never worn a hat or shoes when she is been working outside. I am convinced that she is not going to start doing that now. She had continue with her radiation therapy and has tolerated that well. Mrs. Woodward did resume her Xeloda on July 22, 2019 and is tolerating it well. She continues to have mild slight rash but it is not worsened and the daughter thinks it is continues to improve. She has had no weeping, itching or oozing from the rash . It is barely visible at this point. Plan: 1. Continue Xeloda at current dosing 1000 mg twice daily. She is to take the Xeloda on the days of radiation only. 2. She may use Compazine or Ativan as needed for antiemetics at home. 3. Labs from July 23, 2019 were reviewed in detail and discussed with Ms. Woodward and a copy was given to her. WBC 5.4, hemoglobin 13.1, platelets are 62,000 ANC is 3300. Creatinine 0.8 LFTs are. 4. We will plan to see her back in 1 week with CBC CMP. We will reassess her status at that time to see if she has had any further problems with the rash that she will have been on the Xeloda for a full 5-8 days at that time. 5. Ms. Woodward and her daughter were instructed to contact us in interim should any questions or problems arise. They are reminded that of course she is here daily and was advised to see her for question of problems she may have in the interim. 6. AVOID GRAPEFRUIT PRODUCTS WITH XELODA. 7. Mrs. Zamora and her daughter were instructed to monitor for diarrhea, hand-foot syndrome or worsening rash or mouth sores. There was report this at the first sign of any problems. Signed By: Leigh Huitron-, CNP Yuni Pascual MD <<Signature on File>>
[2019-07-30 15:40] LABS: Basophils % 0.5 %; Eosinophils # 0.1 10^3/uL (0.0-0.8); Eosinophils % 1.4 %; Hematocrit 39.2 % (37.0-47.0); Hemoglobin 13.3 g/dL (11.5-15.3); Lymphocytes # 0.8 10^3/uL (0.8-4.8); Lymphocytes % 14.1 %; Mean Corpuscular HGB Conc 33.9 g/dL (30.0-36.0); Mean Corpuscular Hemoglobin 31.5 pg (28.0-34.0); Mean Corpuscular Volume 92.9 fL (81-99); Mean Platelet Volume 10.6 fL (7.4-10.4); Monocytes # 0.6 10^3/uL (0.2-0.9); Monocytes % 10.1 %; Neutrophils # 4.3 10^3/uL (1.8-7.7); Neutrophils % 73.6 %; Nucleated Red Blood Cells % 0 %; Platelet Count 169 10^3/cmm (130-400); Red Blood Count 4.22 10^6/uL (4.1-5.3); Red Cell Distribution Width 14.8 % (12.1-15.1); White Blood Count 5.8 10^3/uL (4.0-10.0)
[2019-07-30 15:45] LABS: Alanine Aminotransferase 11 U/L (0-33); Alkaline Phosphatase 96 IU/L (35-105); Anion Gap 19.7 (5-19); Aspartate Amino Transferase 21 U/L (0-32); Blood Urea Nitrogen 18 mg/dL (8-23); Calcium 9.4 mg/dL (8.5-10.5); Carbon Dioxide 22 mmol/L (22-29); Chloride 104 mmol/L (98-107); Globulin 3.1 g/dL (1.3-4.6); Glucose 115 mg/dL (65-115); Osmolality Calculated 291 mOsm/kg (285-295); Potassium 3.7 mmol/L (3.5-5.1); Sodium 142 mmol/L (136-145); Total Bilirubin 0.9 mg/dL (0.15-1.2); Total Protein 7.1 g/dL (6.6-8.7)
--- NOTE | 2019-07-30 16:55 | ONCRAD TMN_ITS ---
Radiation Oncology Weekly Treatment Management Patient: Almita Woodward MR#: [id number] : 1935> Age: 84> Sex: Female Dictated by: Dr. Theodore Arias Date of Service: 07/30/2019 Referring Physician(s) : Yon Cervantes Diagnosis: C21.0 - Malignant neoplasm of anus, unspecified, Diagnosed 06/10/2019 (Active) Stage IIIA, T1, N1, M0 Radiotherapy to date: Course: Pelvis anus, Treatment Site: [id number], Ref. ID: [id number], Energy: 6X, Dose/Fx (cGy): 185, #Fx: , Dose Correction (cGy): 0, Total Dose (cGy): 3,885, Start Date: 07/02/2019, Elapsed Days: 28 Chief Complaint/History of Present Illness: Anal cancer tumor dose 2960 cGy in 16 fractions. She had developed a problematic skin reaction in the intergluteal fold when seen last week. She was instructed to apply either Aquaphor or hydrocortisone. Her daughter got Aquaphor and the patient has been pleased with the results. She has mild itching and no other discomfort. We did discuss again today that she can use hydrocortisone for the itching. She is not having diarrhea. She says that she is experiencing less discomfort with bowel movements. She has no bladder complaints that I would attribute to radiation, though she does describe some days where she has a great deal of frequency. The skin has darkened in the inguinal folds but she denies any discomfort whatsoever. Mrs. Woodward is a 84-year-old female with a history of diarrhea and eventually developed rectal bleeding. She states she thought that was due to hemorrhoids. She was on Xarelto for a history of blood clots and atrial fibrillation Mrs Woodward was referred to a colorectal surgeon in [place]. She underwent colonoscopy which confirmed small polyp in the right colon and lesion in the perianal area. She then underwent excisional biopsy on 04/26/2019. 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 Tumor size was 1.8 cm. With positive surgical margin involving inferior and medial peripheral margins, less than 1 mm from lateral peripheral margin and at least 1 mm from superior peripheral margin. No lymphovascular or perineural invasion seen. T1 Mrs Woodward has seen a medical oncologist- Dr. Cervantes in [place] on 05/21/2019. As per his recommendations (considering patient's age and comorbid conditions), she was not a candidate for further surgery. She was offered combined chemoradiation therapy. Dr Cervantes recommended utilizing a low dose oral Xeloda e.g. 625 mg/m??? twice a day concurrent with radiation therapy. Prescription for Xeloda was given per Dr Cervantes. She did not start the Xeloda until she started radiation therapy. MRI of the pelvis done on 05/28/2019 reported: no discrete anal mass visualized. Mild infiltration of fat along the right posterior lateral aspect of the anus extending into the subcutaneous fat along the inferior gluteal fold on the right is nonspecific and may be at least partially secondary to recent biopsy; clinical correlation recommended. Right inguinal lymphadenopathy. Mrs Woodward underwent CT PET scan on 05/28/2019 which showed increased uptake with and the 6 o'clock position of the anus which could be compatible with known anal cancer. Hypermetabolic right inguinal lymph node, likely metastatic. No evidence of metastatic disease within the chest or upper abdomen. The area of focal increased FDG uptake along the posterior/6:00 region of the anus with a maximum SUV of 5.2. Right inguinal adenopathy with a lymph node measuring 2.0 x 1.4 cm in the neck small SUV of 6.2. There is no suspicious osseous lesions noted. She did have thoracic/lumbar spondylosis no acute fractures and bones are osteopenic. PMH: History of atrial fibrillation, depression, arthritis, thromboembolism, CVD, hypertension Mrs Woodward had presented on June 19, 2019 to start treatment with chemoradiation. However, she and her daughter were upset due to a phone call from [place] saying she needed to come back up because she has something in her vagina that may need surgery . After much discussion and no clarification between Mrs Woodward and her daughter, I opted to delay starting her treatment until we could figure out what was going on. After multiple phone calls and faxes of pathology reports, it was determined that Mrs Woodward had had a coloposcopy per Dr. Elzbieta Jimenez (COVER MAKING MACHINE OPERATOR) with biopsy of the vaginal cuff on 05/30/2019. The final diagnosis: vagina 9:00 biopsy high-grade squamous intraepithelial lesion space (HSIL/VaIN 2???3); vaginal nonacog No. 2 biopsy was benign squamous mucosa with areas of atrophy; vaginal biopsy at 3 o'clock position reported benign squamous mucosal with mild atrophic changes. The microscopic description reported after review of H&E stained slides, and his dull chemistry P 16 was performed on blocks A1 and B1 to evaluate the presence of severe dysplasia given history of anal squamous cell carcinoma and biopsy related tissue distortion which partially obscured the histologic time deemed. The area of concern on block A1 shows blocklike reactivity for P 16, consistent with severe dysplasia at that side however the focus in block B1 is negative, consistent with atrophy. Her treatment was delayed an additional week due to car and transportation issues. Eventually, she started combined chemoradiation with oral Xeloda on July 02, 2019 . As per patient, she noted some facial rash and some spots on the back she thought it was due to poison geetha. It is responding well to antihistaminic but her Xeloda was put on hold as there was a concern regarding chemotherapy-induced skin rash. Mrs Woodward denies any mouth sores. She did not have any evidence of hand-foot syndrome. She had no reports of diarrhea. Ms. Woodward is here today for follow-up. Her daughter states that they resume the Xeloda at the same dose twice a day. She resumed on July 21. Her rash is not gotten any worse. This states that the same and possibly even a low bit better. She has had no diarrhea. She denies any mouth sores, sore throat or difficulty swallowing. She denies any skin dryness. Her appetite is good. Her energy is good. She states she goes barefooted frequently and has had no problems with her feet. She denies that they have been tender or red. She denies any taste changes. She states overall she feels pretty good. She has been working in her maria. She states that she has one that she wants to move because it is the most beautiful flower you ever seen but it stinks like all get up . She is wanting to relocate it so that she does not smell when she is on her front porch. Her ECOG is 0. Current Medications: Benadryl Allergy, furosemide, nitroglycerin, oxybutynin Chloride, pantoprazole Sodium, xarelto, xeloda. Allergies: Aspirin. Current Complaints/Review of Systems: Constitutional - Complains of lack of appetite off and on. Complains of moderate fatigue. Denies fever, night sweats and change in weight. Integumentary - Has irritation to the rectal area but no bleeding. Gastrointestinal - Denies abdominal pain, constipation, diarrhea, heartburn / dyspepsia, melena / GI bleeding, nausea and vomiting. Genitourinary (F) - Complains of dysuria once in awhile and nocturia gets up about 1 time per night. Denies frequency, hematuria and urgency. Vital Signs: Performed on 07/30/2019 3:48 PM BMI - 23.861 kg/m2 (high), Height - 65.50 in, Weight - 145.6 lbs, Temperature - 97.6 f, Pulse - 80, Respiration - 18, O2 Sat - 97 %, Pain - 0 and BP - 128/ 81 mm(hg). Physical Exam: Alert, oriented, no acute distress. See history.. Performance Status: 0 - Fully active, able to carry on all predisease activities without restrictions. (ECOG) Lab: None pending in Radiation Oncology. Test performed on 07/23/2019 3:14 PM Cr Clearance (Est) - 53.0900 ml/min (low). Imaging: No new diagnostic imaging was performed since the last weekly treatment visit. All radiation therapy related imaging (including but not limited to kV, MV, and CBCT generated images) was reviewed. Appropriate changes, if any, were made to assure accurate target localization. Impression/Plan: Tolerating treatment well with expected side effects. Continue treatment as planned. CPT: 23064 Signed by: Dr. Theodore Arias>07/30/2019 4:54:54 PM <<Signature on File>>
--- NOTE | 2019-07-31 16:55 | ONC FU_ITS ---
Dr. Pascual follow up note Patient: Almita Woodward < Unit #: [id number]: 1935 Dicatated By: Yuni Pascual M.D.Date of Visit:Jul 31, 2019 Onc Med Follow-up/Prog Note History of Present Illness: Mrs. Woodward is a 84-year-old female with a history of diarrhea and eventually developed rectal bleeding. She states she thought that was due to hemorrhoids. She was on Xarelto for a history of blood clots and atrial fibrillation Mrs Woodward was referred to a colorectal surgeon in [place]. She underwent colonoscopy which confirmed small polyp in the right colon and lesion in the perianal area. She then underwent excisional biopsy on 04/26/2019. 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 Tumor size was 1.8 cm. With positive surgical margin involving inferior and medial peripheral margins, less than 1 mm from lateral peripheral margin and at least 1 mm from superior peripheral margin. No lymphovascular or perineural invasion seen. T1 Mrs Woodward has seen a medical oncologist- Dr. Cervantes in [place] on 05/21/2019. As per his recommendations (considering patient's age and comorbid conditions), she was not a candidate for further surgery. She was offered combined chemoradiation therapy. Dr Cervantes recommended utilizing a low dose oral Xeloda e.g. 625 mg/m??? twice a day concurrent with radiation therapy. Prescription for Xeloda was given per Dr Cervantes. She did not start the Xeloda until she started radiation therapy. MRI of the pelvis done on 05/28/2019 reported: no discrete anal mass visualized. Mild infiltration of fat along the right posterior lateral aspect of the anus extending into the subcutaneous fat along the inferior gluteal fold on the right is nonspecific and may be at least partially secondary to recent biopsy; clinical correlation recommended. Right inguinal lymphadenopathy. Mrs Woodward underwent CT PET scan on 05/28/2019 which showed increased uptake with and the 6 o'clock position of the anus which could be compatible with known anal cancer. Hypermetabolic right inguinal lymph node, likely metastatic. No evidence of metastatic disease within the chest or upper abdomen. The area of focal increased FDG uptake along the posterior/6:00 region of the anus with a maximum SUV of 5.2. Right inguinal adenopathy with a lymph node measuring 2.0 x 1.4 cm in the neck small SUV of 6.2. There is no suspicious osseous lesions noted. She did have thoracic/lumbar spondylosis no acute fractures and bones are osteopenic. PMH: History of atrial fibrillation, depression, arthritis, thromboembolism, CVD, hypertension Mrs Woodward had presented on June 19, 2019 to start treatment with chemoradiation. However, she and her daughter were upset due to a phone call from [place] saying she needed to come back up because she has something in her vagina that may need surgery . After much discussion and no clarification between Mrs Woodward and her daughter, I opted to delay starting her treatment until we could figure out what was going on. After multiple phone calls and faxes of pathology reports, it was determined that Mrs Woodward had had a coloposcopy per Dr. Elzbieta Jimenez (ACCREDITATION SPECIALIST) with biopsy of the vaginal cuff on 05/30/2019. The final diagnosis: vagina 9:00 biopsy high-grade squamous intraepithelial lesion space (HSIL/VaIN 2???3); vaginal nonacog No. 2 biopsy was benign squamous mucosa with areas of atrophy; vaginal biopsy at 3 o'clock position reported benign squamous mucosal with mild atrophic changes. The microscopic description reported after review of H&E stained slides, and his dull chemistry P 16 was performed on blocks A1 and B1 to evaluate the presence of severe dysplasia given history of anal squamous cell carcinoma and biopsy related tissue distortion which partially obscured the histologic time deemed. The area of concern on block A1 shows blocklike reactivity for P 16, consistent with severe dysplasia at that side however the focus in block B1 is negative, consistent with atrophy. Her treatment was delayed an additional week due to car and transportation issues. Eventually, she started combined chemoradiation with oral Xeloda on July 02, 2019 . As per patient, she noted some facial rash and some spots on the back she thought it was due to poison geetha. It is responding well to antihistaminic but her Xeloda was put on hold as there was a concern regarding chemotherapy-induced skin rash. Mrs Woodward denied any mouth sores. She did not have any evidence of hand-foot syndrome. She had no reports of diarrhea. She resumed on July 21. Her rash is not gotten any worse. Rather continue to improve Came for follow-up denies any specific complaints, no skin rash, no mouth sores, no diarrhea, no hand-foot pain or skin changes.No fever or chills, no nausea or vomiting, no diarrhea or constipation Tolerating combined chemoradiation with oral Xeloda well, as per patient she has 9 more radiation to go Medications: Benadryl Allergy 3 Tablet (of 25 mg) Oral at bedtime, Furosemide 1 Tablet (of 20 mg) Oral daily, Nitroglycerin 1 Tablet (of 0.4 mg) Tablet, sublingual Sublingual daily PRN, Oxybutynin Chloride 1 Tablet (of 5 mg) Oral b.i.d., Pantoprazole Sodium 1 Tablet (of 40 mg) Tablet, enteric coated Oral daily, Xarelto 1 Tablet (of 10 mg) Oral daily, Xeloda 2 Tablet (of 500 mg) Oral daily Allergies: Aspirin Review of Systems: Review of Systems is not available for this patient. Vital Signs: Performed on Jul 31, 2019 16:04 Height - 65.50 in Weight - 146.2 lbs (HIGH) BSA - 1.74 sq.m BMI - 23.96 Temperature - 97.3 F (LOW) Pulse - 83 /min Respiration - 18 /min BP - 134/83 mm(hg) O2 Sat - 98 % Pain - 0 Performance Status: 0 - Fully active, able to carry on all predisease activities without restrictions. (ECOG) Physical Examination: ENMT - No mouth sores, no thrush, no jaundice, Respiratory - Lungs are clear, Cardiovascular - Regular rate and rhythm of heart, Abdomen - Soft, bowel sounds present nontender, Extremities - No visible edema or rash. Lab/Imaging: Test performed on Jul 23, 2019 15:14 Sodium 140 mmol/L Potassium 4.3 mmol/L Chloride 101 mmol/L CO2 26 mmol/L Anion Gap 17.3 BUN 15 mg/dL Creatinine 0.8 mg/dL Cr Clearance (Est) 53.0900 mL/min Glucose 104 mg/dL Calcium 9.0 mg/dL Protein, Total 7.3 g/dL Albumin 3.7 g/dL Globulin 3.6 g/dL Bilirubin, Total 0.4 mg/dL ALT (SGPT) 12 U/L AST (SGOT) 19 U/L Alkaline Phosphatase 100 IU/L WBC 5.4 10 3/uL RBC 4.16 10 6/uL HGB 13.1 g/dL HCT 40.6 % MCV 97.6 fL MCH 31.5 pg MCHC 32.3 g/dL RDW 15.1 % Platelet Count 162 10 3/cmm MPV 10.4 fL Neutrophils 3.3 10 3/uL Lymphocytes 1.2 10 3/uL Monocytes 0.6 10 3/uL Eosinophils 0.2 10 3/uL Basophils 0.0 10 3/uL Neutrophil % 60.3 % Lymphocyte % 22.9 % Monocyte % 11.3 % Eosinophil % 4.4 % Basophils % 0.7 % NRBC % 0 % Impression: Invasive moderately differentiated squamous cell carcinoma per excisional biopsy done on 04/26/2019 final pathology report showed tumor size 1.8 cm, with a positive surgical margins involving deep margin and inferior and medial peripheral margins and less than 1 mm from lateral peripheral margin and at least 1 mm from superior peripheral margin. No lymphovascular or perineural invasion seen T1, CT PET scan showed increase uptake at 6:00 position of anus and right inguinal lymphadenopathy, 2 x 1.4 cm with SUV of 6.2, consistent with metastatic disease . No distant metastatic disease cN1a, Mx next Stage IIIa (T1,cN1a ,Mx) History of atrial fibrillation and history of thromboembolism, on Xarelto discussed with the patient and her daughter, regarding her disease status and pathology which confirmed an invasive moderately differentiated squamous cell carcinoma involving anus, CT PET scan showed increased uptake in right inguinal lymph node size 2 x 1.4 cm with SUV of 6.2 consistent with metastatic disease e.g.cN1a and no evidence of distant metastases. Mrs Woodward had presented on June 19, 2019 to start treatment with chemoradiation. However, she and her daughter were upset due to a phone call from [place] saying she needed to come back up because she has something in her vagina that may need surgery . After much discussion and no clarification between Mrs Woodward and her daughter, I opted to delay starting her treatment until we could figure out what was going on. After multiple phone calls and faxes of pathology reports, it was determined that Mrs Woodward had had a coloposcopy per Dr. Elzbieta Jimenez (ACCREDITATION SPECIALIST) with biopsy of the vaginal cuff on 05/30/2019. The final diagnosis: vagina 9:00 biopsy high-grade squamous intraepithelial lesion space (HSIL/VaIN 2???3); vaginal nonacog No. 2 biopsy was benign squamous mucosa with areas of atrophy; vaginal biopsy at 3 o'clock position reported benign squamous mucosal with mild atrophic changes. The microscopic description reported after review of H&E stained slides, and his dull chemistry P 16 was performed on blocks A1 and B1 to evaluate the presence of severe dysplasia given history of anal squamous cell carcinoma and biopsy related tissue distortion which partially obscured the histologic time deemed. The area of concern on block A1 shows blocklike reactivity for P 16, consistent with severe dysplasia at that side however the focus in block B1 is negative, consistent with atrophy. Her treatment was delayed an additional week due to car and transportation issues But eventually combined chemoradiation with oral Xeloda was started on July 02, 2019. Her Xeloda was placed on hold due to concerns about a facial rash and forearm rash. He did improve with antihistamine and holding the Xeloda. Mrs. Woodward is convinced that it was from poison geetha/poison oak. She states that someone had been mowing her yard and she was getting down when in some of the grass blown on her . She had been out in her yard quite a bit as well without any some protection. We discussed using covering such as hat long sleeves and sunscreen. She states she grew up and all of her life has never worn a hat or shoes when she is been working outside. I am convinced that she is not going to start doing that now. She had continue with her radiation therapy and is tolerated that well. Mrs. Woodward did resume her Xeloda on July 22, 2019 and is tolerating it well. She continues to have mild slight rash but it is not worsened and the daughter thinks it is continues to improve. She has had no weeping, itching or oozing from the rash . It is barely visible at this point. Plan: Discussed with patient regarding her labs white blood count 5.8 hemoglobin 13.3 crit 39.2 platelets 169,000 CMP within normal limits Clinically, patient doing well, tolerating combined chemoradiation therapy with oral Xeloda well. Will continue with same and she will return to clinic in 2 weeks with CBC CMP Signed By: Yuni Pascual M.D. <<Signature on File>>
--- NOTE | 2019-08-06 16:34 | ONCRAD TMN_ITS ---
Radiation Oncology Weekly Treatment Management Patient: Almita Woodward MR#: [id number] : 1935 Age: 84 Sex: Female Dictated by: Dr. Theodore Arias Date of Service: 08/06/2019 Referring Physician(s) : Yon Cervantes Diagnosis: C21.0 - Malignant neoplasm of anus, unspecified, Diagnosed 06/10/2019 (Active) Stage IIIA, T1, N1, M0 Radiotherapy to date: Course: Pelvis anus, Treatment Site: [id number], Ref. ID: [id number], Energy: 6X, Dose/Fx (cGy): 185, #Fx: , Dose Correction (cGy): 0, Total Dose (cGy): 4,625, Start Date: 07/02/2019, Elapsed Days: 35 Chief Complaint/History of Present Illness: Anal cancer tumor dose 4625 cGy in 25 fractions. She is doing about the same. Her intergluteal fold skin reaction has improved. She has had a progressive skin reaction in the inguinal areas and to a lesser degree on the vulva. She is applying Aquaphor which is helpful. Her bladder function is variable. Some days it functions normally and other days she has significant frequency. She denies dysuria, pyuria, or hematuria. She has not had diarrhea. Constipation has been a problem at times. She tends to take a stool softener as needed. She is reluctant to take it daily. She will continue on an as needed basis. Current Medications: Benadryl Allergy, furosemide, nitroglycerin, oxybutynin Chloride, pantoprazole Sodium, xarelto, xeloda. Allergies: Aspirin. Current Complaints/Review of Systems: Constitutional - Complains of lack of appetite. Complains of moderate fatigue. Denies fever, night sweats and change in weight. ENMT - Complains of altered taste. Integumentary - Has redness to the groin and has rectal irritation. Gastrointestinal - Complains of occasional constipation. Complains of melena / GI bleeding that is characterized by dark blood which happens occasionally. Complains of nausea. Denies abdominal pain, diarrhea, hemorrhoids and vomiting. Genitourinary (F) - Complains of nocturia occasionally and urgency occasionally. Denies dysuria and frequency. Vital Signs: Performed on 08/06/2019 4:00 PM BMI - 23.959 kg/m2 (high), Height - 65.50 in, Weight - 146.2 lbs, Temperature - 97.4 f, Pulse - 79, Respiration - 20, O2 Sat - 96 %, Pain - 0 and BP - 122/ 76 mm(hg). Physical Exam: Appears stable, no skin erythema or desquamation. Alert, oriented, in no acute distress. The inguinal areas have severe erythema and mild dry desquamation. I think that she is at some risk for developing moist desquamation and I do not think that she would be able to care for it properly. Performance Status: 0 - Fully active, able to carry on all predisease activities without restrictions. (ECOG) Lab: None pending in Radiation Oncology. Imaging: No new diagnostic imaging was performed since the last weekly treatment visit. All radiation therapy related imaging (including but not limited to kV, MV, and CBCT generated images) was reviewed. Appropriate changes, if any, were made to assure accurate target localization. Impression/Plan: Tolerating treatment well, but skin rection is becoming a problem. Due to the inguinal skin reaction, I have recommended that she take off the rest of the week. She has 5 treatments to go and will be able to finish a week from Monday. I proposed this to her and her daughter. Both are in agreement. The daughter said the transportation would not be an issue at all. CPT: 63406 Signed by: Dr. Theodore Arias>08/06/2019 4:32:38 PM <<Signature on File>>
== END 2019-08-06 23:59 | disposition home or self-care (01) ==
LOC: ONCMED 06:53
PROVIDERS: Internal Medicine Hematology & Oncology; Nurse Practitioner; Absent Provider Specialist; PCP Chiropractor Orthopedic; Visit Provider Specialist
DX: Z51.0 Encounter for antineoplastic radiation therapy (principal); C21.0 Malignant neoplasm of anus, unspecified; L58.0 Acute radiodermatitis; Y84.2 Radiological procedure and radiotherapy as the cause of abnormal reaction of the patient, or of later complication, without mention of misadventure at the time of the procedure; L98.9 Disorder of the skin and subcutaneous tissue, unspecified; R21 Rash and other nonspecific skin eruption; R87.623 High grade squamous intraepithelial lesion on cytologic smear of vagina (HGSIL); I48.91 Unspecified atrial fibrillation; Z79.899 Other long term (current) drug therapy; Z86.718 Personal history of other venous thrombosis and embolism; Z79.01 Long term (current) use of anticoagulants
CPT/HCPCS: 36415; 77336; 77386; 80053; 85025; 99214

== ENCOUNTER 2019-09-02 06:51 | Outpatient (RCR) | payer MEDICARE, SELFPAY ==
--- NOTE | 2019-08-14 16:09 | ONCRAD TMN_ITS ---
Radiation Oncology Weekly Treatment Management Patient: Almita Woodward MR#: [id number] : 1935 Age: 84 Sex: Female Dictated by: Dr. Gigi Young Date of Service: 08/14/2019 Referring Physician(s) : Yon Cervantes M.D. Diagnosis: C21.0 - Malignant neoplasm of anus, unspecified, Diagnosed 06/10/2019 (Active) Stage IIIA, T1, N1, M0 Radiotherapy to date: Course: Pelvis anus, Treatment Site: [id number], Ref. ID: [id number], Energy: 6X, Dose/Fx (cGy): 185, #Fx: , Dose Correction (cGy): 0, Total Dose (cGy): 5,180, Start Date: 07/02/2019, Elapsed Days: 43 Chief Complaint/History of Present Illness: Anal cancer The patient reports green casts in her urine, incontinence, and genital skin irritation. Current Medications: Benadryl Allergy, furosemide, nitroglycerin, oxybutynin Chloride, pantoprazole Sodium, xarelto, xeloda. Allergies: Aspirin. Current Complaints/Review of Systems: Constitutional - Complains of a poor appetite. Complains of mild fatigue. Denies fever, night sweats and change in weight. Integumentary - Has redness and wet desquamation to the folds of the groin area. Gastrointestinal - Complains of nausea. Denies abdominal pain, constipation, diarrhea, melena / GI bleeding and vomiting. Genitourinary (F) - Complains of frequent incontinence. Complains of nocturia get up about 1 time. Complains of urgency. Complains of urine color change which she says has a green cast to it. Denies dysuria, frequency, hematuria, vaginal discharge / bleeding and vaginal spotting. Vital Signs: Performed on 08/14/2019 3:21 PM BMI - 23.926 kg/m2 (high), Height - 65.50 in, Weight - 146.0 lbs, Temperature - 98.2 f, Pulse - 64, Respiration - 18, O2 Sat - 96 %, Pain - 0 and BP - 131/ 86 mm(hg). Physical Exam: Moist desquamation in the bilateral groin (Left > Right) and bright erythema of the vulva. Performance Status: 1 - No physically strenuous activity, but ambulatory and able to carry out light or sedentary work (e.g. office work, light house work). (ECOG) Lab: None pending in Radiation Oncology. Imaging: No new diagnostic imaging was performed since the last weekly treatment visit. All radiation therapy related imaging (including but not limited to kV, MV, and CBCT generated images) was reviewed. Appropriate changes, if any, were made to assure accurate target localization. Impression/Plan: Tolerating treatment with expected side effects. Domeboro soak therapy was initiated. I have ordered a urine analysis culture and sensitivity as indicated to work up her history of ???green casts in the urine???. We will continue treatment as planned. CPT: 74510 Signed by: Dr. Gigi Young>08/14/2019 4:08:06 PM <<Signature on File>>
[2019-08-14 17:13] LABS: Add Urine Microscopic? NO
[2019-08-14 19:05] LABS: Bilirubin Urine Neg (NEGATIVE); Blood Urine Neg (Negative); Glucose Urine UA Norm (Normal); Ketones Urine Negative (Negative); Leukocyte Esterase Urine Negative (Negative); Nitrate Urine Negative (Negative); Protein Urine Neg (Negative); Specific Gravity, Urine 1.005 (1.005-1.030); Urine Appearance Clear (CLEAR); Urine Color Straw (Yellow); Urobilinogen Urine Norm (Negative); pH Urine 7 (5-7)
[2019-08-15 16:20] LABS: Basophils % 0.2 %; Eosinophils # 0.1 10^3/uL (0.0-0.8); Eosinophils % 1.3 %; Hemoglobin 13.2 g/dL (11.5-15.3); Lymphocytes # 0.6 10^3/uL (0.8-4.8); Lymphocytes % 12.1 %; Mean Corpuscular HGB Conc 33.8 g/dL (30.0-36.0); Mean Corpuscular Hemoglobin 33.2 pg (28.0-34.0); Mean Platelet Volume 10.6 fL (7.4-10.4); Monocytes # 0.5 10^3/uL (0.2-0.9); Neutrophils # 4.01 10^3/uL (1.8-7.7); Nucleated Red Blood Cells % 0 %; Platelet Count 179 10^3/cmm (130-400); Red Blood Count 3.98 10^6/uL (4.1-5.3); Red Cell Distribution Width 15.8 % (12.1-15.1); White Blood Count 5.3 10^3/uL (4.0-10.0)
[2019-08-15 16:51] LABS: Alanine Aminotransferase 13 U/L (0-33); Albumin Level 3.8 g/dL (3.5-5.2); Alkaline Phosphatase 90 IU/L (35-105); Blood Urea Nitrogen 22 mg/dL (8-23); Calcium 9.2 mg/dL (8.5-10.5); Carbon Dioxide 22 mmol/L (22-29); Chloride 104 mmol/L (98-107); Globulin 3.7 g/dL (1.3-4.6); Glucose 112 mg/dL (65-115); Osmolality Calculated 285 mOsm/kg (285-295); Sodium 139 mmol/L (136-145); Total Bilirubin 0.5 mg/dL (0.15-1.2); Total Protein 7.5 g/dL (6.6-8.7)
[2019-08-15 17:26] LABS: Anion Gap 17.1 (5-19); Aspartate Amino Transferase 24 U/L (0-32); Potassium 4.1 mmol/L (3.5-5.1)
[2019-08-16 09:54] LABS: Add Urine Microscopic? NO
[2019-08-16 10:07] LABS: Bilirubin Urine Neg (NEGATIVE); Blood Urine Neg (Negative); Glucose Urine UA Norm (Normal); Ketones Urine Negative (Negative); Leukocyte Esterase Urine Negative (Negative); Nitrate Urine Negative (Negative); Protein Urine Neg (Negative); Specific Gravity, Urine 1.005 (1.005-1.030); Urine Appearance Clear (CLEAR); Urine Color Yellow (Yellow); Urobilinogen Urine Norm (Negative); pH Urine 5 (5-7)
--- NOTE | 2019-08-16 10:54 | ONC FU_ITS ---
Dr. Pascual follow up note Patient: Almita Woodward < Unit #: [id number]: 1935 Dicatated By: Yuni Pascual M.D.Date of Visit:Aug 16, 2019 Onc Med Follow-up/Prog Note History of Present Illness: Mrs. Woodward is a 84-year-old female with a history of diarrhea and eventually developed rectal bleeding. She states she thought that was due to hemorrhoids. She was on Xarelto for a history of blood clots and atrial fibrillation Mrs Woodward was referred to a colorectal surgeon in [place]. She underwent colonoscopy which confirmed small polyp in the right colon and lesion in the perianal area. She then underwent excisional biopsy on 04/26/2019. 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 Tumor size was 1.8 cm. With positive surgical margin involving inferior and medial peripheral margins, less than 1 mm from lateral peripheral margin and at least 1 mm from superior peripheral margin. No lymphovascular or perineural invasion seen. T1 Mrs Woodward has seen a medical oncologist- Dr. Cervantes in [place] on 05/21/2019. As per his recommendations (considering patient's age and comorbid conditions), she was not a candidate for further surgery. She was offered combined chemoradiation therapy. Dr Cervantes recommended utilizing a low dose oral Xeloda e.g. 625 mg/m??? twice a day concurrent with radiation therapy. Prescription for Xeloda was given per Dr Cervantes. She did not start the Xeloda until she started radiation therapy. MRI of the pelvis done on 05/28/2019 reported: no discrete anal mass visualized. Mild infiltration of fat along the right posterior lateral aspect of the anus extending into the subcutaneous fat along the inferior gluteal fold on the right is nonspecific and may be at least partially secondary to recent biopsy; clinical correlation recommended. Right inguinal lymphadenopathy. Mrs Woodward underwent CT PET scan on 05/28/2019 which showed increased uptake with and the 6 o'clock position of the anus which could be compatible with known anal cancer. Hypermetabolic right inguinal lymph node, likely metastatic. No evidence of metastatic disease within the chest or upper abdomen. The area of focal increased FDG uptake along the posterior/6:00 region of the anus with a maximum SUV of 5.2. Right inguinal adenopathy with a lymph node measuring 2.0 x 1.4 cm in the neck small SUV of 6.2. There is no suspicious osseous lesions noted. She did have thoracic/lumbar spondylosis no acute fractures and bones are osteopenic. PMH: History of atrial fibrillation, depression, arthritis, thromboembolism, CVD, hypertension Mrs Woodward had presented on June 19, 2019 to start treatment with chemoradiation. However, she and her daughter were upset due to a phone call from [place] saying she needed to come back up because she has something in her vagina that may need surgery . After much discussion and no clarification between Mrs Woodward and her daughter, I opted to delay starting her treatment until we could figure out what was going on. After multiple phone calls and faxes of pathology reports, it was determined that Mrs Woodward had had a coloposcopy per Dr. Elzbieta Jimenez ([employer]) with biopsy of the vaginal cuff on 05/30/2019. The final diagnosis: vagina 9:00 biopsy high-grade squamous intraepithelial lesion space (HSIL/VaIN 2???3); vaginal nonacog No. 2 biopsy was benign squamous mucosa with areas of atrophy; vaginal biopsy at 3 o'clock position reported benign squamous mucosal with mild atrophic changes. The microscopic description reported after review of H&E stained slides, and his dull chemistry P 16 was performed on blocks A1 and B1 to evaluate the presence of severe dysplasia given history of anal squamous cell carcinoma and biopsy related tissue distortion which partially obscured the histologic time deemed. The area of concern on block A1 shows blocklike reactivity for P 16, consistent with severe dysplasia at that side however the focus in block B1 is negative, consistent with atrophy. Her treatment was delayed an additional week due to car and transportation issues. Eventually, she started combined chemoradiation with oral Xeloda on July 02, 2019 . As per patient, she noted some facial rash and some spots on the back she thought it was due to poison geetha. It is responding well to antihistaminic but her Xeloda was put on hold as there was a concern regarding chemotherapy-induced skin rash. Mrs Woodward denied any mouth sores. She did not have any evidence of hand-foot syndrome. She had no reports of diarrhea. She resumed on July 21. Her rash is not gotten any worse. Rather continue to improve Completed combined chemoradiation with oral Xeloda on August 16, 2019 Came for follow-up, denies any specific complaints, no mouth sores, no jaundice, mild diarrhea but under control and also has skin rash in the lower pelvis, radiation oncology is managing it. Patient completed radiation therapy this morning and will take final dose of oral Xeloda this evening. No fever or chills no nausea or vomiting otherwise Medications: Benadryl Allergy 3 Tablet (of 25 mg) Oral at bedtime, Furosemide 1 Tablet (of 20 mg) Oral daily, Nitroglycerin 1 Tablet (of 0.4 mg) Tablet, sublingual Sublingual daily PRN, Oxybutynin Chloride 1 Tablet (of 5 mg) Oral b.i.d., Pantoprazole Sodium 1 Tablet (of 40 mg) Tablet, enteric coated Oral daily, Xarelto 1 Tablet (of 10 mg) Oral daily Allergies: Aspirin Review of Systems: Constitutional - Appetite is fair but Pt states nothing tastes good. and weight is stable. No fever, night sweats, or hot flashes. Energy level is poor, ENMT - No sinus congestion/drainage. No mouth sores. No sore throat or difficulty swallowing, Hematologic/Lymphatic - Pt reports easy bruising, Respiratory - Occasional shortness of breath and cough. No pleuritic pain or hemoptysis, Cardiovascular - No angina pain. No palpitations, Gastrointestinal - No nausea or vomiting. No heartburn or acid reflux. No diarrhea or constipation. No blood in the stool or black stools, Genitourinary (F) - No dysuria or hematuria. Positive for urinary frequency, urgency and incontinence, Musculoskeletal - Positive for bilateral leg pain (Pt decribes it as cramping in her feet and legs), Neurologic - No headache or dizziness. No numbness or tingling. No other focal neurologic symptoms, Psychiatric - No anxiety or depression. No insomnia. Vital Signs: Performed on Aug 16, 2019 10:19 Height - 65.50 in Weight - 146.1 lbs (HIGH) BSA - 1.74 sq.m BMI - 23.94 Temperature - 97.7 F (LOW) Pulse - 54 /min (LOW) Respiration - 15 /min BP - 138/82 mm(hg) O2 Sat - 100 % Pain - 0 Performance Status: 1 - No physically strenuous activity, but ambulatory and able to carry out light or sedentary work (e.g. office work, light house work). (ECOG) Physical Examination: ENMT - No mouth sores no thrush no jaundice, Respiratory - Lungs are clear, Cardiovascular - Regular rate and rhythm of heart, Abdomen - Soft, bowel sounds present, Extremities - No visible edema but old healing ecchymosis. Lab/Imaging: Test performed on Jul 23, 2019 15:14 Sodium 140 mmol/L Potassium 4.3 mmol/L Chloride 101 mmol/L CO2 26 mmol/L Anion Gap 17.3 BUN 15 mg/dL Creatinine 0.8 mg/dL Cr Clearance (Est) 53.0900 mL/min Glucose 104 mg/dL Calcium 9.0 mg/dL Protein, Total 7.3 g/dL Albumin 3.7 g/dL Globulin 3.6 g/dL Bilirubin, Total 0.4 mg/dL ALT (SGPT) 12 U/L AST (SGOT) 19 U/L Alkaline Phosphatase 100 IU/L WBC 5.4 10 3/uL RBC 4.16 10 6/uL HGB 13.1 g/dL HCT 40.6 % MCV 97.6 fL MCH 31.5 pg MCHC 32.3 g/dL RDW 15.1 % Platelet Count 162 10 3/cmm MPV 10.4 fL Neutrophils 3.3 10 3/uL Lymphocytes 1.2 10 3/uL Monocytes 0.6 10 3/uL Eosinophils 0.2 10 3/uL Basophils 0.0 10 3/uL Neutrophil % 60.3 % Lymphocyte % 22.9 % Monocyte % 11.3 % Eosinophil % 4.4 % Basophils % 0.7 % NRBC % 0 % Impression: Invasive moderately differentiated squamous cell carcinoma per excisional biopsy done on 04/26/2019 final pathology report showed tumor size 1.8 cm, with a positive surgical margins involving deep margin and inferior and medial peripheral margins and less than 1 mm from lateral peripheral margin and at least 1 mm from superior peripheral margin. No lymphovascular or perineural invasion seen T1, CT PET scan showed increase uptake at 6:00 position of anus and right inguinal lymphadenopathy, 2 x 1.4 cm with SUV of 6.2, consistent with metastatic disease . No distant metastatic disease cN1a, Mx next Stage IIIa (T1,cN1a ,Mx) History of atrial fibrillation and history of thromboembolism, on Xarelto discussed with the patient and her daughter, regarding her disease status and pathology which confirmed an invasive moderately differentiated squamous cell carcinoma involving anus, CT PET scan showed increased uptake in right inguinal lymph node size 2 x 1.4 cm with SUV of 6.2 consistent with metastatic disease e.g.cN1a and no evidence of distant metastases. Mrs Woodward had presented on June 19, 2019 to start treatment with chemoradiation. However, she and her daughter were upset due to a phone call from [place] saying she needed to come back up because she has something in her vagina that may need surgery . After much discussion and no clarification between Mrs Woodward and her daughter, I opted to delay starting her treatment until we could figure out what was going on. After multiple phone calls and faxes of pathology reports, it was determined that Mrs Woodward had had a coloposcopy per Dr. Elzbieta Jimenez ([employer]) with biopsy of the vaginal cuff on 05/30/2019. The final diagnosis: vagina 9:00 biopsy high-grade squamous intraepithelial lesion space (HSIL/VaIN 2???3); vaginal nonacog No. 2 biopsy was benign squamous mucosa with areas of atrophy; vaginal biopsy at 3 o'clock position reported benign squamous mucosal with mild atrophic changes. The microscopic description reported after review of H&E stained slides, and his dull chemistry P 16 was performed on blocks A1 and B1 to evaluate the presence of severe dysplasia given history of anal squamous cell carcinoma and biopsy related tissue distortion which partially obscured the histologic time deemed. The area of concern on block A1 shows blocklike reactivity for P 16, consistent with severe dysplasia at that side however the focus in block B1 is negative, consistent with atrophy. Her treatment was delayed an additional week due to car and transportation issues But eventually combined chemoradiation with oral Xeloda was started on July 02, 2019. Her Xeloda was placed on hold due to concerns about a facial rash and forearm rash. He did improve with antihistamine and holding the Xeloda. Mrs. Woodward is convinced that it was from poison geetha/poison oak. She states that someone had been mowing her yard and she was getting down when in some of the grass blown on her . She had been out in her yard quite a bit as well without any some protection. We discussed using covering such as hat long sleeves and sunscreen. She states she grew up and all of her life has never worn a hat or shoes when she is been working outside. I am convinced that she is not going to start doing that now. She had continue with her radiation therapy and is tolerated that well. Mrs. Woodward did resume her Xeloda on July 22, 2019 and Completed combined chemoradiation with oral Xeloda on August 16, 2019 Plan: Discussed with patient regarding her labs white blood count 5.3 hemoglobin 13.2 crit 39 platelets 179,000 CMP within normal limits Clinically, patient is doing well, tolerating combined chemoradiation with oral Xeloda well, today is the last day of combined therapy. Patient will take last dose of oral Xeloda at this evening with that she will conclude her combined chemoradiation therapy. Patient has radiation-induced cutaneous toxicity involving lower pelvis now being managed by radiation oncology and patient has follow-up on Monday with radiation oncology in 2 weeks. Her blood count looks reasonable she will return to clinic in 1 month with CBC CMP. Radiation oncology will plan for follow-up CT scan in 8 to 12 weeks. Signed By: Yuni Pascual M.D. <<Signature on File>>
--- NOTE | 2019-09-03 13:24 | ONCRAD EPV_ITS ---
Radiation Oncology Established Patient Visit Patient: Kwame MR#: [id number] : 1935 Age: 84 Sex: Female Dictated by: Dr. Gigi Young Date of Service: 09/02/2019 Referring Physician(s) : Yon Cervantes Diagnosis: C21.0 - Malignant neoplasm of anus, unspecified, Diagnosed 06/10/2019 (Active) Stage IIIA, T1, N1, M0 Radiotherapy to Date: Course: Pelvis anus, Treatment Site: [id number], Ref. ID: [id number], Energy: 6X, Dose/Fx (cGy): 185, #Fx: 30 / 30, Dose Correction (cGy): 0, Total Dose (cGy): 5,550, Start Date: 07/02/2019, End Date: 08/16/2019, Elapsed Days: 45 Chief Complaint / History of Present Illness: The patient is seen today in follow-up 2 weeks after completing her radiotherapy. The purpose of her visit is to assess for acute skin toxicities. Review of medical records from Dr. Peñaloza's office reveals that an anoscopy was recently completed (08/28/2019) and this revealed no masses or lesions notified concerning for residual malignancy. Current Medications: Benadryl Allergy, furosemide, nitroglycerin, oxybutynin Chloride, pantoprazole Sodium, xarelto. Allergies: Aspirin. Current Complaints / Review of Systems: Constitutional - Complains of lack of appetite. Complains of severe fatigue. Complains of change in weight in which she is down 4.9 lbs. since last seen on 08/14/19. Denies fever and night sweats. Eyes - Denies blurred vision and double vision. ENMT - Complains of mouth dryness and altered taste. Denies dysphagia, ear pain, stomatitis and tinnitus. Neck - Denies neck pain. Integumentary - Complains of rash which is all over her body. Cardiovascular - Complains of edema in both legs. Denies arrhythmias and chest pain. Respiratory - Denies cough, dyspnea and wheezing. Gastrointestinal - Complains of abdominal pain after having a bowel movement and melena / GI bleeding had some last week after an anal scope. Denies constipation, diarrhea, heartburn / dyspepsia, nausea and vomiting. Genitourinary (F) - Complains of nocturia in which she gets up about 2 times per night. Denies dysuria, frequency, hematuria, incontinence, urgency, vaginal discharge / bleeding and vaginal spotting. Musculoskeletal - Complains of generalized muscle weakness. Denies bone pain and joint pain. Neurologic - Complains of disorientation and abnormal gait. Denies dizziness and headaches. Endocrine - Denies diabetes and thyroid disease. Hematologic/Lymphatic - Denies tender or enlarged lymph nodes.. Vital Signs: Performed on 09/02/2019 4:06 PM BMI - 23.14 kg/m2 (high), Height - 65.50 in, Weight - 141.2 lbs, Temperature - 97.4 f, Pulse - 72, Respiration - 18, O2 Sat - 97 %, Pain - 0 and BP - 133/ 71 mm(hg). Physical Exam: General: Alert and oriented x 3. No acute distress. HEENT: Normocephalic, atraumatic. Extraocular Movements Intact: Pupils Equal, Round, Reactive to Light and Accommodation: Sclerae anicteric. Oral cavity is clear without lesions, masses or ulcers. NECK: Supple without supraclavicular or jugular lymphadenopathy. LUNGS: Clear to auscultation bilaterally without rales, rhonchi or wheeze. HEART: Regular rate and rhythm, normal S1 and S2 without murmur, gallop or rub. MUSCULOSKELETAL: No tenderness or percussion pain over the axial skeleton, scapulae or pelvis. ABDOMEN: Soft, nontender, nondistended without masses or organomegaly. Bowell sounds are present. Genital: Evaluation of the patient's anus, anal margin, and perineum, reveals no evidence of moist or dry desquamation. EXTREMITIES: No peripheral edema is identified. Limited motor and sensory examination are grossly intact and symmetric bilaterally. NEUROLOGIC: Cranial nerves II ???XII are grossly intact. Normal sensation, strength 5/5 in all extremities, normal gait, no ataxia. Performance Status: 2 - Ambulatory/capable of all self-care, unable to perform any work activities. Up and about more than 50% of waking hours. (ECOG) Lab: None pending. Test performed on 08/15/2019 4:06 PM RBC - 3.98 10 6/ul (low), RDW - 15.8 % (high), MPV - 10.6 fl (high), Lymphocytes - 0.6 10 3/ul (low) and Cr Clearance (Est) - 47.81 ml/min (low). Pathology: Primary, c21.0 - malignant neoplasm of anus, unspecified, Diagnosed 06/10/2019 (active) stage iiia, t1, n1, m0. Imaging: See HPI Impression: The patient is an 84-year-old female who completed concurrent chemoradiation therapy to a total dose of 55.5 Gy (completed 08/16/2019). The patient???s acute side effects from radiation are resolving well. She has no skin desquamation in the treated area. Since she will be followed by both Medical Oncology and Surgery next month, she may see us in Radiation Oncology in 6 months. She has no clinical evidence of disease persistence at this time. Signed by: 09/03/2019 1:23:49 PM <<Signature on File>> CPT Code: CPT Code:
== END 2019-09-06 23:59 | disposition home or self-care (01) ==
LOC: ONCMED 06:51
PROVIDERS: Internal Medicine Hematology & Oncology; Absent Provider Radiology Radiation Oncology; PCP Chiropractor Orthopedic; Visit Provider Radiology Radiation Oncology
DX: Z51.0 Encounter for antineoplastic radiation therapy (principal); C21.0 Malignant neoplasm of anus, unspecified; C77.4 Secondary and unspecified malignant neoplasm of inguinal and lower limb lymph nodes; L58.0 Acute radiodermatitis; Y84.2 Radiological procedure and radiotherapy as the cause of abnormal reaction of the patient, or of later complication, without mention of misadventure at the time of the procedure; R82.998 Other abnormal findings in urine; I10 Essential (primary) hypertension; I48.91 Unspecified atrial fibrillation; M19.90 Unspecified osteoarthritis, unspecified site; F32.9 Major depressive disorder, single episode, unspecified; Z79.01 Long term (current) use of anticoagulants
CPT/HCPCS: 36415; 77014; 77336; 77386; 80053; 81003; 85025; 99214

== ENCOUNTER 2019-09-16 05:28 | Outpatient (RCR) | payer MEDICARE, SELFPAY ==
[2019-09-13 11:48] LABS: Basophils % 0.5 %; Eosinophils # 0.3 10^3/uL (0.0-0.8); Eosinophils % 6.3 %; Hematocrit 38.2 % (37.0-47.0); Hemoglobin 12.3 g/dL (11.5-15.3); Lymphocytes # 0.9 10^3/uL (0.8-4.8); Lymphocytes % 22.1 %; Mean Corpuscular HGB Conc 32.2 g/dL (30.0-36.0); Mean Corpuscular Hemoglobin 32.4 pg (28.0-34.0); Mean Corpuscular Volume 100.5 fL (81-99); Monocytes # 0.5 10^3/uL (0.2-0.9); Neutrophils % 58.6 %; Nucleated Red Blood Cells % 0 %; Platelet Count 167 10^3/cmm (130-400); Red Cell Distribution Width 14.8 % (12.1-15.1); White Blood Count 4.3 10^3/uL (4.0-10.0)
[2019-09-13 12:01] LABS: Alanine Aminotransferase 12 U/L (0-33); Albumin Level 3.5 g/dL (3.5-5.2); Alkaline Phosphatase 88 IU/L (35-105); Anion Gap 13.1 (5-19); Aspartate Amino Transferase 17 U/L (0-32); Blood Urea Nitrogen 15 mg/dL (8-23); Calcium 8.7 mg/dL (8.5-10.5); Carbon Dioxide 28 mmol/L (22-29); Chloride 106 mmol/L (98-107); Globulin 3.2 g/dL (1.3-4.6); Glucose 107 mg/dL (65-115); Osmolality Calculated 293 mOsm/kg (285-295); Potassium 4.1 mmol/L (3.5-5.1); Sodium 143 mmol/L (136-145); Total Bilirubin 0.3 mg/dL (0.15-1.2); Total Protein 6.7 g/dL (6.6-8.7)
--- NOTE | 2019-09-16 16:08 | ONC FU_ITS ---
Dr. Pascual follow up note Patient: Almita Woodward Unit #: [id number]: 1935 Dicatated By: Yuni Pascual M.D.Date of Visit:Sep 16, 2019 Onc Med Follow-up/Prog Note History of Present Illness: Mrs. Woodward is a 84-year-old female with a history of diarrhea and eventually developed rectal bleeding. She states she thought that was due to hemorrhoids. She was on Xarelto for a history of blood clots and atrial fibrillation Mrs Woodward was referred to a colorectal surgeon in [place]. She underwent colonoscopy which confirmed small polyp in the right colon and lesion in the perianal area. She then underwent excisional biopsy on 04/26/2019. 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 Tumor size was 1.8 cm. With positive surgical margin involving inferior and medial peripheral margins, less than 1 mm from lateral peripheral margin and at least 1 mm from superior peripheral margin. No lymphovascular or perineural invasion seen. T1 Mrs Woodward has seen a medical oncologist- Dr. Cervantes in [place] on 05/21/2019. As per his recommendations (considering patient's age and comorbid conditions), she was not a candidate for further surgery. She was offered combined chemoradiation therapy. Dr Cervantes recommended utilizing a low dose oral Xeloda e.g. 625 mg/m??? twice a day concurrent with radiation therapy. Prescription for Xeloda was given per Dr Cervantes. She did not start the Xeloda until she started radiation therapy. MRI of the pelvis done on 05/28/2019 reported: no discrete anal mass visualized. Mild infiltration of fat along the right posterior lateral aspect of the anus extending into the subcutaneous fat along the inferior gluteal fold on the right is nonspecific and may be at least partially secondary to recent biopsy; clinical correlation recommended. Right inguinal lymphadenopathy. Mrs Woodward underwent CT PET scan on 05/28/2019 which showed increased uptake with and the 6 o'clock position of the anus which could be compatible with known anal cancer. Hypermetabolic right inguinal lymph node, likely metastatic. No evidence of metastatic disease within the chest or upper abdomen. The area of focal increased FDG uptake along the posterior/6:00 region of the anus with a maximum SUV of 5.2. Right inguinal adenopathy with a lymph node measuring 2.0 x 1.4 cm in the neck small SUV of 6.2. There is no suspicious osseous lesions noted. She did have thoracic/lumbar spondylosis no acute fractures and bones are osteopenic. PMH: History of atrial fibrillation, depression, arthritis, thromboembolism, CVD, hypertension Mrs Woodward had presented on June 19, 2019 to start treatment with chemoradiation. However, she and her daughter were upset due to a phone call from [place] saying she needed to come back up because she has something in her vagina that may need surgery . After much discussion and no clarification between Mrs Woodward and her daughter, I opted to delay starting her treatment until we could figure out what was going on. After multiple phone calls and faxes of pathology reports, it was determined that Mrs Woodward had had a coloposcopy per Dr. Elzbieta Jimenez ([facility]) with biopsy of the vaginal cuff on 05/30/2019. The final diagnosis: vagina 9:00 biopsy high-grade squamous intraepithelial lesion space (HSIL/VaIN 2???3); vaginal nonacog No. 2 biopsy was benign squamous mucosa with areas of atrophy; vaginal biopsy at 3 o'clock position reported benign squamous mucosal with mild atrophic changes. The microscopic description reported after review of H&E stained slides, and his dull chemistry P 16 was performed on blocks A1 and B1 to evaluate the presence of severe dysplasia given history of anal squamous cell carcinoma and biopsy related tissue distortion which partially obscured the histologic time deemed. The area of concern on block A1 shows blocklike reactivity for P 16, consistent with severe dysplasia at that side however the focus in block B1 is negative, consistent with atrophy. Her treatment was delayed an additional week due to car and transportation issues. Eventually, she started combined chemoradiation with oral Xeloda on July 02, 2019 . As per patient, she noted some facial rash and some spots on the back she thought it was due to poison geetha. It is responding well to antihistaminic but her Xeloda was put on hold as there was a concern regarding chemotherapy-induced skin rash. Mrs Woodward denied any mouth sores. She did not have any evidence of hand-foot syndrome. She had no reports of diarrhea. She resumed on July 21. Her rash is not gotten any worse. Rather continue to improve Completed combined chemoradiation with oral Xeloda on August 16, 2019 Underwent follow-up surgical evaluation with Anoscopy on August 28, 2019 which showed mucosa was pink and healthy there was no masses/lesion noted exam was otherwise unremarkable Came for follow-up, denies any specific complaints, no fever chills, no nausea or vomiting, no diarrhea or constipation, anal pain and discomfort is improving, now almost resolved. Off and on diarrhea, no melena or hematochezia, Medications: Benadryl Allergy 3 Tablet (of 25 mg) Oral at bedtime PRN, Furosemide 1 Tablet (of 20 mg) Oral daily, Nitroglycerin 1 Tablet (of 0.4 mg) Tablet, sublingual Sublingual daily PRN, Oxybutynin Chloride 1 Tablet (of 5 mg) Oral b.i.d., Pantoprazole Sodium 1 Tablet (of 40 mg) Tablet, enteric coated Oral daily Allergies: Aspirin Review of Systems: Constitutional - Appetite is fair but Pt states nothing tastes good. and weight is stable. No fever, night sweats, or hot flashes. Energy level is poor, ENMT - No sinus congestion/drainage. No mouth sores. No sore throat or difficulty swallowing, Hematologic/Lymphatic - Pt reports easy bruising, Respiratory - Occasional shortness of breath and cough. No pleuritic pain or hemoptysis, Cardiovascular - No angina pain. No palpitations, Gastrointestinal - No nausea or vomiting. No heartburn or acid reflux. Positive for severe diarrhea, no constipation. No blood in the stool or black stools, Genitourinary (F) - No dysuria or hematuria. Positive for urinary frequency, urgency and incontinence, Musculoskeletal - Positive for bilateral leg pain (Pt decribes it as cramping in her feet and legs), Neurologic - No headache or dizziness. No numbness or tingling. No other focal neurologic symptoms, Psychiatric - No anxiety or depression. No insomnia. Vital Signs: Performed on Sep 16, 2019 15:05 Height - 65.50 in Weight - 144.6 lbs (HIGH) BSA - 1.73 sq.m BMI - 23.70 Temperature - 97.0 F (LOW) Pulse - 71 /min Respiration - 18 /min BP - 141/72 mm(hg) (HIGH) O2 Sat - 97 % Pain - 0 Performance Status: 0 - Fully active, able to carry on all predisease activities without restrictions. (ECOG) Physical Examination: ENMT - No mouth sores, no thrush, no jaundice, Respiratory - Lungs are clear, Cardiovascular - Regular rate and rhythm of heart, Abdomen - Soft, bowel sounds present, Extremities - No visible edema but old healing ecchymosis. Lab/Imaging: Test performed on Aug 15, 2019 16:06 Sodium 139 mmol/L Potassium 4.1 mmol/L Chloride 104 mmol/L CO2 22 mmol/L Anion Gap 17.1 BUN 22 mg/dL Creatinine 0.9 mg/dL Cr Clearance (Est) 47.81 mL/min Glucose 112 mg/dL Calcium 9.2 mg/dL Protein, Total 7.5 g/dL Albumin 3.8 g/dL Globulin 3.7 g/dL Bilirubin, Total 0.5 mg/dL ALT (SGPT) 13 U/L AST (SGOT) 24 U/L Alkaline Phosphatase 90 IU/L WBC 5.3 10 3/uL RBC 3.98 10 6/uL HGB 13.2 g/dL HCT 39.0 % MCV 98.0 fL MCH 33.2 pg MCHC 33.8 g/dL RDW 15.8 % Platelet Count 179 10 3/cmm MPV 10.6 fL Neutrophils 4.01 10 3/uL Lymphocytes 0.6 10 3/uL Monocytes 0.5 10 3/uL Eosinophils 0.1 10 3/uL Basophils 0.0 10 3/uL Neutrophil % 76.0 % Lymphocyte % 12.1 % Monocyte % 10.0 % Eosinophil % 1.3 % Basophils % 0.2 % NRBC % 0 % Impression: Invasive moderately differentiated squamous cell carcinoma per excisional biopsy done on 04/26/2019 final pathology report showed tumor size 1.8 cm, with a positive surgical margins involving deep margin and inferior and medial peripheral margins and less than 1 mm from lateral peripheral margin and at least 1 mm from superior peripheral margin. No lymphovascular or perineural invasion seen T1, CT PET scan showed increase uptake at 6:00 position of anus and right inguinal lymphadenopathy, 2 x 1.4 cm with SUV of 6.2, consistent with metastatic disease . No distant metastatic disease cN1a, Mx next Stage IIIa (T1,cN1a ,Mx) History of atrial fibrillation and history of thromboembolism, on Xarelto discussed with the patient and her daughter, regarding her disease status and pathology which confirmed an invasive moderately differentiated squamous cell carcinoma involving anus, CT PET scan showed increased uptake in right inguinal lymph node size 2 x 1.4 cm with SUV of 6.2 consistent with metastatic disease e.g.cN1a and no evidence of distant metastases. Mrs Woodward had presented on June 19, 2019 to start treatment with chemoradiation. However, she and her daughter were upset due to a phone call from [place] saying she needed to come back up because she has something in her vagina that may need surgery . After much discussion and no clarification between Mrs Woodward and her daughter, I opted to delay starting her treatment until we could figure out what was going on. After multiple phone calls and faxes of pathology reports, it was determined that Mrs Woodward had had a coloposcopy per Dr. Elzbieta Jimenez ([facility]) with biopsy of the vaginal cuff on 05/30/2019. The final diagnosis: vagina 9:00 biopsy high-grade squamous intraepithelial lesion space (HSIL/VaIN 2???3); vaginal nonacog No. 2 biopsy was benign squamous mucosa with areas of atrophy; vaginal biopsy at 3 o'clock position reported benign squamous mucosal with mild atrophic changes. The microscopic description reported after review of H&E stained slides, and his dull chemistry P 16 was performed on blocks A1 and B1 to evaluate the presence of severe dysplasia given history of anal squamous cell carcinoma and biopsy related tissue distortion which partially obscured the histologic time deemed. The area of concern on block A1 shows blocklike reactivity for P 16, consistent with severe dysplasia at that side however the focus in block B1 is negative, consistent with atrophy. Her treatment was delayed an additional week due to car and transportation issues But eventually combined chemoradiation with oral Xeloda was started on July 02, 2019. Her Xeloda was placed on hold due to concerns about a facial rash and forearm rash. He did improve with antihistamine and holding the Xeloda. Mrs. Woodward is convinced that it was from poison geetha/poison oak. She states that someone had been mowing her yard and she was getting down when in some of the grass blown on her . She had been out in her yard quite a bit as well without any some protection. We discussed using covering such as hat long sleeves and sunscreen. She states she grew up and all of her life has never worn a hat or shoes when she is been working outside. I am convinced that she is not going to start doing that now. She had continue with her radiation therapy and is tolerated that well. Mrs. Woodward did resume her Xeloda on July 22, 2019 and Completed combined chemoradiation with oral Xeloda on August 16, 2019 And completed on August 16, 2019, subsequently underwent anoscopy and follow-up surgical evaluation on August 28, 2019 showed no masses/lesion noted exam was otherwise normal Plan: Discussed with patient regarding her labs white blood count 4.3 hemoglobin 12.3 hematocrit 38.2 platelets 167,000 CMP within normal limits Clinically, patient is doing well with no signs symptom suggestive of recurrence of disease, recently underwent follow-up surgical evaluation with anoscopy evaluation on August 28, 2019, showed no evidence of disease. Patient will be following surgery as well as radiation oncology on regular basis As for his abnormal vaginal lesion biopsy is concerned, patient is being followed by [facility] Dr. Elzbieta Jimenez in [place]. Her lab work-up including CBC CMP is within normal range, no further recommendation from medical oncology point of view we will see her on as-needed basis. Signed By: Yuni Pascual M.D. <<Signature on File>>
== END 2019-10-07 23:59 | disposition home or self-care (01) ==
LOC: ONCMED 05:28
PROVIDERS: Absent Provider Radiology Radiation Oncology; PCP Chiropractor Orthopedic; Visit Provider Internal Medicine Hematology & Oncology
DX: Z08 Encounter for follow-up examination after completed treatment for malignant neoplasm (principal); Z85.048 Personal history of other malignant neoplasm of rectum, rectosigmoid junction, and anus
CPT/HCPCS: 80053; 83735; 85025; G0463

== ENCOUNTER 2020-01-15 09:19 | Emergency (ER) | payer MEDICARE, SELFPAY ==
--- NOTE | 2020-01-15 09:22 | CT_ITS ---
WS: [id number] CT HEAD NONCONTRAST HISTORY: ams TECHNIQUE: Contiguous axial imaging performed through the brain in 2.5 mm imaging. Bone and soft tiss ue windows. Sagittal and coronal reformats reviewed. All CT scans at [facility] use at le ast one of these dose optimization techniques: automated exposure control; mA and/or kV adjustment pe r patient size (includes targeted exams where dose is matched to clinical indication); or iterative r econstruction. DLP: 1306.15 mGy.cm COMPARISON: None available. No acute intracranial hemorrhage, midline shift or mass effect. Mild atrophy and moderate to severe chronic white matter ischemic changes. There are several small la cunar infarcts in the basal ganglia. No acute area of sulcal effacement. Ventricles: Normal size with no hydrocephalus. Scattered calcification the distal vertebral arteries with more moderate extensive calcifications thr ough the intracranial carotid arteries. Paranasal sinuses: As visualized are clear. Mastoid air cells: Well pneumatized. Calvarium and scalp: Skull is intact with no soft tissue edema or swelling. CT/CT head wo con* [id number] IMPRESSION: 1. No acute intracranial hemorrhage or edema. 2. Mild atrophy with moderate chronic microvascular ischemic changes and lacun ar infarcts. 3. 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
--- NOTE | 2020-01-15 09:22 | XR_ITS ---
WS: [id number] XR chest 1V portable [id number] REASON FOR EXAM: ams FINDINGS: The chest is relatively unchanged compared to previous examination of 01/24/2018. The heart and mediastinum are within normal limits for age. Calcified granulomatous disease is seen in both hemithoraces. No active pulmonary parenchymal or pleural disease is noted. Mild degenerative changes in the thoracic spine and both shoulders. XR/XR chest 1V portable [id number] IMPRESSION: No acute chest abnormality identified.
--- NOTE | 2020-01-15 09:23 | ECG_ITS ---
[facility] Test Date: 2020-01-15 Pat Name: Almita Woodward Department: Room: Gender: Female [employer]: : 1935 Requested By: Margo Saul Order Number: [id number] Allison MD: Chelo Treviño M.D. Measurements Intervals [place] Rate: 72 P: 84 MI: 152 QRS: 71 QRSD: 87 T: 31 QT: 388 QTc: 427 Interpretive Statements SINUS RHYTHM WITH OCCASIONAL SUPRAVENTRICULAR PREMATURE COMPLEXES Compared to ECG 03/09/2018 22:45:29 No significant changes Electronically Signed On 01-15-2020 19:40:50 DIRECTOR OF TEENAGE ACTIVITIES by Chelo Treviño M.D. [id number]
[2020-01-15 09:25] VITALS: BP 177/100; PULSE 70; RESP 16; O2SAT 99; BMI 22.9
[2020-01-15 09:34] VITALS: TEMP 36.5
--- NOTE | 2020-01-15 09:39 | W.ED.NEUROSD ---
HPI - Neuro Symptoms/Deficit General: Chief Complaint: Neuro Symptoms/Deficit Stated Complaint: Numbness/Slurred Speech Time Seen by Provider: 01/15/20 09:27 Source: patient Mode of arrival: ambulatory Limitations: no limitations History of Present Illness: HPI Narrative: 84-year-old female states over the last 2 days she been having numbness in her lower extremities with some difficulty walking. She states she also had slurred speech starting yesterday that is since resolved. She does have a history of A. fib and states she supposed to be on blood thinners but stopped taking them weeks ago due to bruising. She denies any headache or vomiting. Her last known normal was yesterday and her symptoms have gradually resolved. Associated symptoms: Deny chest pain, nausea or vomiting Review of Systems Const: Denies: fever(s), chills, body aches or change in appetite Eyes: Denies: blurry vision or eye discomfort ENMT: Denies: throat pain or dental pain Card: Denies: chest pain Resp: Denies: dyspnea GI: Denies: abdominal pain, nausea, vomiting or diarrhea : Denies: dysuria Musc: Reports: muscle weakness Skin/Breast: Denies: rash Neuro: Reports: Slurred speech present Psych: Denies: depression Trey/Lymph: Denies: easy bruising All/Imm: Denies: urticaria PFSH ED PFSH: Social History (Updated 01/15/20 @ 09:34 by Huseyin Justice RN) Smoking and tobacco status: never smoked Alcohol intake: never Substance/Drug Use: never Physical Exam Const: COMMON NORMALS: no acute distress, patient oriented x3 and healthy appearing HENMT: COMMON NORMALS: normocephalic and atraumatic HEAD & SCALP: normocephalic and atraumatic Eye: COMMON NORMALS: Equal, round and reactive pupils present and EOMs intact bilaterally PUPIL: Yes Equal, round and reactive pupils present Neck/C-Spine: COMMON NORMALS: full ROM and supple Chest: COMMONS NORMALS: normal inspection of the chest and normal palpation of entire chest wall Resp: COMMON NORMALS: normal respiratory effort, No retractions, No use of accessory muscles and clear to auscultation bilaterally AUSCULTATION: clear to auscultation bilaterally Cardio: COMMON NORMALS: regular rate, regular rhythm and No murmurs present (Cardio) RATE: regular rate RHYTHM: regular rhythm GI: COMMON NORMALS: Normal to inspection, nondistended, normoactive bowel sounds present, Soft to palpation, non-tender and no masses PALPATION: Yes Soft to palpation Extremity: COMMON NORMALS: normal to inspection and full ROM Neuro: COMMON NORMALS: patient oriented x3, moves all extremities and no focal motor deficits Psych: COMMON NORMALS: mental status grossly normal, Normal thought process present and cooperative THOUGHT PROCESS: Normal thought process present Skin: COMMON NORMALS: no rashes or lesions noted and no wounds GENERAL SKIN EXAM: no rashes or lesions noted Course Vital Signs: Vital signs: Vital Signs Temperature 97.7 F 01/15/20 09:34 Pulse Rate 67 01/15/20 10:30 Respiratory Rate 16 01/15/20 10:30 Blood Pressure 154/74 01/15/20 10:30 Pulse Oximetry 98 01/15/20 10:30 MDM - Neuro Symptoms/Deficit MDM Narrative: Medical decision making narrative: almita presents here with UTI-like symptoms. Her symptoms have since resolved. She is well-appearing here and CT head is normal. I strongly recommended admission she states she would like to go home. She refuses admission. Informed her she does need to start taking her Xarelto again and she needs to follow-up with PCP in 1 to 2 days. She is to return if she changes her mind or has any return of her symptoms. She understands and agrees to plan. Lab Data: Labs: Lab Results 01/15/20 01/15/20 01/15/20 Range/Units 09:38 09:38 09:41 WBC 4.2 (4.0-10.0) 10^3/ uL RBC 4.25 (4.1-5.3) 10^6/u L Hgb 13.3 (11.5-15.3) g/dL Hct 40.2 (37.0-47.0) % MCV 94.6 (81-99) fL MCH 31.3 (28.0-34.0) pg MCHC 33.1 (30.0-36.0) g/dL RDW 13.3 (12.1-15.1) % Plt Count 146 (130-400) 10^3/c mm MPV 10.8 H (7.4-10.4) fL Neut % (Auto) 57.7 % Lymph % (Auto) 30.0 % Worth % (Auto) 9.5 % Eos % (Auto) 2.1 % Baso % (Auto) 0.5 % Neut # (Auto) 2.42 (1.8-7.7) 10^3/u L Lymph # (Auto) 1.3 (0.8-4.8) 10^3/u L Worth # (Auto) 0.4 (0.2-0.9) 10^3/u L Eos # (Auto) 0.1 (0.0-0.8) 10^3/u L Baso # (Auto) 0.0 (0.0-0.1) 10^3/u L Nucleated RBC % (a uto) 0 % Nucleated RBCs # 0.0 /100WBC Sodium 140 (136-145) mmol/L Potassium 4.0 (3.5-5.1) mmol/L Chloride 104 (98-107) mmol/L Carbon Dioxide 27 (22-29) mmol/L Anion Gap 13.0 (5-19) BUN 19 (8-23) mg/dL Creatinine 0.7 (0.5-0.9) mg/dL GFR Calculation Not Reportable Glucose 83 (65-115) mg/dL POC Glucose 91 (70-110) mg/dL Calculated Osmolal ity 291 (285-295) mOsm/k g Calcium 9.3 (8.5-10.5) mg/dL Total Bilirubin 0.4 (0.15-1.2) mg/dL AST 18 (0-32) U/L ALT 12 (0-33) U/L Alkaline Phosphata se 90 (35-105) IU/L Total Protein 6.9 (6.6-8.7) g/dL Albumin 3.8 (3.5-5.2) g/dL Globulin 3.1 (1.3-4.6) g/dL Urine Color (Yellow) Urine Appearance (CLEAR) Urine pH (5-7) Ur Specific Gravit y (1.005-1.030) Urine Protein (Negative) Urine Glucose (UA) (Normal) Urine Ketones (Negative) Urine Blood (Negative) Urine Nitrate (Negative) Urine Bilirubin (Negative) Urine Urobilinogen (Negative) mg/dL Ur Leukocyte Marlena ase (Negative) 01/15/20 Range/Units 10:15 WBC (4.0-10.0) 10^3/ uL RBC (4.1-5.3) 10^6/u L Hgb (11.5-15.3) g/dL Hct (37.0-47.0) % MCV (81-99) fL MCH (28.0-34.0) pg MCHC (30.0-36.0) g/dL RDW (12.1-15.1) % Plt Count (130-400) 10^3/c mm MPV (7.4-10.4) fL Neut % (Auto) % Lymph % (Auto) % Worth % (Auto) % Eos % (Auto) % Baso % (Auto) % Neut # (Auto) (1.8-7.7) 10^3/u L Lymph # (Auto) (0.8-4.8) 10^3/u L Worth # (Auto) (0.2-0.9) 10^3/u L Eos # (Auto) (0.0-0.8) 10^3/u L Baso # (Auto) (0.0-0.1) 10^3/u L Nucleated RBC % (a uto) % Nucleated RBCs # /100WBC Sodium (136-145) mmol/L Potassium (3.5-5.1) mmol/L Chloride (98-107) mmol/L Carbon Dioxide (22-29) mmol/L Anion Gap (5-19) BUN (8-23) mg/dL Creatinine (0.5-0.9) mg/dL GFR Calculation Glucose (65-115) mg/dL POC Glucose (70-110) mg/dL Calculated Osmolal ity (285-295) mOsm/k g Calcium (8.5-10.5) mg/dL Total Bilirubin (0.15-1.2) mg/dL AST (0-32) U/L ALT (0-33) U/L Alkaline Phosphata se (35-105) IU/L Total Protein (6.6-8.7) g/dL Albumin (3.5-5.2) g/dL Globulin (1.3-4.6) g/dL Urine Color Straw (Yellow) Urine Appearance Clear (CLEAR) Urine pH 7 (5-7) Ur Specific Gravit y 1.005 (1.005-1.030) Urine Protein Neg (Negative) Urine Glucose (UA) Norm (Normal) Urine Ketones Negative (Negative) Urine Blood Neg (Negative) Urine Nitrate Negative (Negative) Urine Bilirubin Neg (Negative) Urine Urobilinogen Norm (Negative) mg/dL Ur Leukocyte Marlena ase Negative (Negative) Imaging Data^: CXR: Radiologist's impression: [facility] [address] [facility] [place] [address] XRay Report Signed Patient: Almita Woodward Unit #: [id number] : 1935 Age/Sex: 84 / F ADM Date: 01/15/20 Loc: ER Room/Bed: Attending Dr: Ordering Provider/Ordering MD: Margo Saul MD Date of Service: 01/15/20 Procedure(s): XR chest 1V portable [id number] Accession Number(s): [id number] Report Number: [id number] WS: [id number] XR chest 1V portable [id number] REASON FOR EXAM: ams FINDINGS: The chest is relatively unchanged compared to previous examination of 01/24/2018. The heart and mediastinum are within normal limits for age. Calcified granulomatous disease is seen in both hemithoraces. No active pulmonary parenchymal or pleural disease is noted. Mild degenerative changes in the thoracic spine and both shoulders. XR/XR chest 1V portable [id number] IMPRESSION: No acute chest abnormality identified. CT Head: Radiologist's impression: [address] [place] [address] Scan Report Signed Patient: Almita Woodward Unit #: [id number] : 1935 Age/Sex: 84 / F ADM Date: 01/15/20 Loc: ER Room/Bed: Attending Dr: Ordering Provider/Ordering MD: Margo Saul MD Date of Service: 01/15/20 Procedure(s): CT head wo con* [id number] Accession Number(s): [id number] Report Number: [id number] WS: [id number] CT HEAD NONCONTRAST HISTORY: ams TECHNIQUE: Contiguous axial imaging performed through the brain in 2.5 mm imaging. Bone and soft tissue windows. Sagittal and coronal reformats reviewed. All CT scans at [facility] use at least one of these dose optimization techniques: automated exposure control; mA and/or kV adjustment per patient size (includes targeted exams where dose is matched to clinical indication); or iterative reconstruction. DLP: 1306.15 mGy.cm COMPARISON: None available. No acute intracranial hemorrhage, midline shift or mass effect. Mild atrophy and moderate to severe chronic white matter ischemic changes. There are several small lacunar infarcts in the basal ganglia. No acute area of sulcal effacement. Ventricles: Normal size with no hydrocephalus. Scattered calcification the distal vertebral arteries with more moderate extensive calcifications through the intracranial carotid arteries. Paranasal sinuses: As visualized are clear. Mastoid air cells: Well pneumatized. Calvarium and scalp: Skull is intact with no soft tissue edema or swelling. CT/CT head wo con* [id number] IMPRESSION: 1. No acute intracranial hemorrhage or edema. 2. Mild atrophy with moderate chronic microvascular ischemic changes and lacunar infarcts. 3. 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 EKG Data^: EKG 1: Attestation: I personally reviewed and interpreted this EKG as follows: EKG interpretation date: 01/15/20 EKG interpretation time: 09:34 Interpretation: nsr hr [address] or t wave abnormalities qrs 87 qtc 413 Discharge Plan Discharge Patient Disposition: Home Clinical Impression: Transient cerebral ischemia Qualifiers: Transient cerebral ischemia type: unspecified Qualified Code(s): G45.9 - Transient cerebral ischemic attack, unspecified Condition: Stable Prescriptions: No Action oxybutynin chloride 15 mg tablet extended release 24hr 15 mg PO DAILY@04 RF: 0 pantoprazole 40 mg tablet,delayed release (DR/EC) 40 mg PO DAILY@04 RF: 0 furosemide 20 mg tablet 20 mg PO DAILY@04 RF: 0 Xarelto 10 mg tablet 10 mg PO DAILY@04 RF: 0 Discharge Orders: Discharge ED (Routine); Ordered 01/15/20 Ordered By: Margo Saul Referrals: Verona Reyes FNP, [place] [Primary Care Provider] - 1-3 days Discharge Diet: Advance as tolerated Discharge Activity: Resume usual activity Patient Instructions: Transient Ischemic Attack (ED) Coding Level of Care Code ED Lap Machine Operator for Chg Fwd Exam Comprehensive
[2020-01-15 09:43] LABS: Glucose Point of Care 91 mg/dL (70-110)
[2020-01-15 09:55] LABS: Basophils % 0.5 %; Eosinophils # 0.1 10^3/uL (0.0-0.8); Eosinophils % 2.1 %; Hematocrit 40.2 % (37.0-47.0); Hemoglobin 13.3 g/dL (11.5-15.3); Lymphocytes # 1.3 10^3/uL (0.8-4.8); Mean Corpuscular HGB Conc 33.1 g/dL (30.0-36.0); Mean Corpuscular Hemoglobin 31.3 pg (28.0-34.0); Mean Corpuscular Volume 94.6 fL (81-99); Mean Platelet Volume 10.8 fL (7.4-10.4); Monocytes # 0.4 10^3/uL (0.2-0.9); Monocytes % 9.5 %; Neutrophils # 2.42 10^3/uL (1.8-7.7); Neutrophils % 57.7 %; Nucleated Red Blood Cells % 0 %; Platelet Count 146 10^3/cmm (130-400); Red Blood Count 4.25 10^6/uL (4.1-5.3); Red Cell Distribution Width 13.3 % (12.1-15.1); White Blood Count 4.2 10^3/uL (4.0-10.0)
[2020-01-15 10:03] VITALS: BP 155/81; PULSE 67; RESP 18; O2SAT 99
[2020-01-15 10:24] LABS: Add Urine Microscopic? NO
[2020-01-15 10:24] LABS: Alanine Aminotransferase 12 U/L (0-33); Albumin Level 3.8 g/dL (3.5-5.2); Alkaline Phosphatase 90 IU/L (35-105); Aspartate Amino Transferase 18 U/L (0-32); Blood Urea Nitrogen 19 mg/dL (8-23); Calcium 9.3 mg/dL (8.5-10.5); Carbon Dioxide 27 mmol/L (22-29); Chloride 104 mmol/L (98-107); Creatinine Clr Calc Pharmacy 48.3742; Globulin 3.1 g/dL (1.3-4.6); Glucose 83 mg/dL (65-115); Osmolality Calculated 291 mOsm/kg (285-295); Sodium 140 mmol/L (136-145); Total Bilirubin 0.4 mg/dL (0.15-1.2); Total Protein 6.9 g/dL (6.6-8.7)
[2020-01-15 10:30] VITALS: BP 154/74; PULSE 67; RESP 16; O2SAT 98
[2020-01-15 10:36] LABS: Urine Appearance Clear (CLEAR); Urine Color Straw (Yellow)
[2020-01-15 10:37] LABS: Bilirubin Urine Neg (Negative); Blood Urine Neg (Negative); Glucose Urine UA Norm (Normal); Ketones Urine Negative (Negative); Leukocyte Esterase Urine Negative (Negative); Nitrate Urine Negative (Negative); Protein Urine Neg (Negative); Specific Gravity, Urine 1.005 (1.005-1.030); Urobilinogen Urine Norm (Negative); pH Urine 7 (5-7)
[2020-01-15 11:44] VITALS: BP 162/89; PULSE 56; RESP 18; O2SAT 97
[2020-01-15 12:29] LABS: INR 1.01 (0.8-1.2)
== END 2020-01-15 11:44 | disposition home or self-care (01) ==
PROVIDERS: Emergency Provider Emergency Medicine; PCP Chiropractor Orthopedic
DX: G45.9 Transient cerebral ischemic attack, unspecified (principal)
CPT/HCPCS: 12345; 36416; 70450; 71045; 80053; 81003; 82962; 85025; 85610; 93005; 99282; 99283

== ENCOUNTER 2020-04-27 08:59 | Outpatient (CLI) | payer MEDICARE, SELFPAY ==
--- NOTE | 2020-04-27 09:30 | USCV_ITS ---
Almita Woodward Age: 84 Gender: F : 1935 Exam Date: 04/27/2020 09:31 Ordering Phys: Luisa Thomas MD ([email or web address]) Technologist: Ange Louis Exam Location: [facility] [place] Indication: TIA BP: 127 / 59 HR: 64 Rhythm: Atrial fibrillation Technical Quality: Adequate MEASUREMENTS (Male / Female) Normal Values 2D ECHO LV Diastolic Diameter PLAX 3.8 cm 4.2 - 5.9 / 3.9 - 5.3 cm LV Systolic Diameter PLAX 2.6 cm LV Chamber Size 3.5 cm IVS Diastolic Thickness 1.2 cm 0.6 - 1.0 / 0.6 - 0.9 cm IVS Systolic Thickness 1.5 cm LVPW Diastolic Thickness 0.9 cm 0.6 - 1.0 / 0.6 - 0.9 cm LVPW Systolic Thickness 1.3 cm RV Chamber Size 3.1 cm LVOT Diameter 2.0 cm LV Ejection Fraction 2D Teich 59.4 % LV Ejection Fraction MOD 2C 34.4 % LV Ejection Fraction 2C AL 32.9 % LA Diameter 3.4 cm LA Width 3.0 cm LA Height 3.3 cm RA Width 3.9 cm RA Height 3.7 cm Aorta at Sinotubular Diameter 2.9 cm M-MODE LV Diastolic Diameter MM 4.3 cm 4.2 - 5.9 / 3.9 - 5.3 cm LV Systolic Diameter MM 3.0 cm LV Ejection Fraction MM Teich 57.6 % IVS Diastolic Thickness MM 0.9 cm 0.6 - 1.0 / 0.6 - 0.9 cm IVS Systolic Thickness MM 1.1 cm LVPW Diastolic Thickness MM 1.2 cm 0.6 - 1.0 / 0.6 - 0.9 cm LVPW Systolic Thickness MM 1.3 cm RV Diastolic Diameter MM 1.3 cm Aortic Annulus Diameter 3.3 cm LA Ao Ratio MM 1.2 DOPPLER AV Peak Velocity 107.0 cm/s LVOT Peak Velocity 68.0 cm/s AV Area Cont Eq vti 1.9 cm squared AV Area Cont Eq pk 2.0 cm squared MV Area PHT 4.0 cm squared Mitral E to A Ratio 202.7 MV E' Velocity 66.5 cm/s Mitral E to MV E' Ratio 10.1 Mitral E to LV E' Lateral Ratio 10.8 Mitral E to LV E' Septal Ratio 9.5 TR Peak Velocity 241.8 cm/s TR Peak Gradient 23.4 mmHg TR Mean Velocity 174.9 cm/s TR Mean Gradient 14.0 mmHg TR Velocity Time Integral 77.1 cm TV Peak E Velocity 73.3 cm/s PV Peak Velocity 52.0 cm/s RV Acceleration Time 0.2 s RV Ejection Time 0.3 s RV AcT/ET 0.5 FINDINGS Left Ventricle Normal left ventricular size, systolic function and wall thickness, with no regional wall motion abnormalities. Left ventricular ejection fraction is estimated at 60 %. Rhythm precludes evaluation of diastolic function. Right Ventricle Normal right ventricular size and systolic function. Right ventricular systolic pressure 24 mmHg. Right Atrium Normal right atrial size. Right atrial pressure estimated at 3 mmHg. Left Atrium Upper normal left atrial size. Mitral Valve Mild mitral annular calcification. Thickened mitral valve. No mitral valve stenosis. No significant mitral valve regurgitation. Aortic Valve Ttrileaflet aortic valve. Aortic valve sclerosis without stenosis. No aortic valve regurgitation. Tricuspid Valve Structurally normal tricuspid valve. No tricuspid valve stenosis. Trace to mild tricuspid valve regurgitation. Pulmonic Valve Structurally normal pulmonic valve. No pulmonary valve stenosis. Trace pulmonary valve regurgitation. Pericardium Aorta Normal size aortic root and proximal ascending aorta. Normal- sized inferior vena cava with normal respiratory variation. CONCLUSIONS 1. Normal left ventricular size, systolic function and wall thickness, with no regional wall motion abnormalities. Left ventricular ejection fraction is estimated at 60 %. 2. Normal right ventricular size and systolic function. 3. Pulmonary artery pressure estimated at 24 mmHg. 4. When compared to previous echocardiogram dated 06/11/2018, there may not have been any significant change. Luisa Thomas MD (Electronically Signed) Final Date: 28 April 2020 16:13 S
== END 2020-04-27 09:00 | disposition home or self-care (01) ==
LOC: RAD 09:01
PROVIDERS: PCP Physician Assistant; Visit Provider Internal Medicine Cardiovascular Disease
DX: G45.9 Transient cerebral ischemic attack, unspecified (principal)
CPT/HCPCS: 93306

== ENCOUNTER 2020-06-08 08:12 | Outpatient (CLI) | payer MEDICARE, SELFPAY ==
--- NOTE | 2020-06-08 08:30 | FL_ITS ---
WS: [id number] FLUOROSCOPIC GUIDED BARIUM ENEMA TECHNICAL: Fluoroscopic guided barium enema FLUOROSCOPY TIME: 2.9 minutes CLINICAL INFORMATION: K62.5 - Hemorrhage of anus and rectum COMPARISON: None. FINDINGS: Osteopenia. Mild lumbar curve convex left with hypertrophic spondylitic changes. Vascular c alcification. Cholecystectomy clips. Tortuous sigmoid colon . No evidence of high-grade stricture or mass. Normal filling of the colon to the ileocecal valve. Normal ileocecal valve and partially visualized terminal ileum. Normal hepatic a nd splenic flexures. Normal postevacuation images. FL/FL barium enema [id number] IMPRESSION: 1. Normal barium enema 2. No suspicious filling defects or strictures. 3. Normal filling to the ileocecal valve.
== END 2020-06-08 08:13 | disposition home or self-care (01) ==
LOC: RAD 08:16
PROVIDERS: PCP Physician Assistant; Visit Provider Surgery
DX: K62.5 Hemorrhage of anus and rectum (principal)
CPT/HCPCS: 74270

== ENCOUNTER 2020-08-15 18:19 | Emergency (ER) | payer MEDICARE, SELFPAY ==
[2020-08-15 18:51] VITALS: BP 118/72; PULSE 92; RESP 15; TEMP 36.9; O2SAT 94; BMI 24.0
--- NOTE | 2020-08-15 20:41 | XRR_ITS ---
PROCEDURE INFORMATION: Exam: XR Chest Exam date and time: 08/15/2020 8:41 PM Age: 85 years old Clinical indication: Dyspnea; Additional info: SOB TECHNIQUE: Imaging protocol: XR of the chest. Views: 1 view. Total images: 1 COMPARISON: CR XR chest 1V portable [id number] 01/15/2020 9:35 AM FINDINGS: Lungs: No visible active interstitial or alveolar airspace disease. COPD/chronic bronchitis/emphysema. Mild senile fibrosis. Calcified granulomas of antecedent disease. Pleural spaces: Unremarkable. No pleural effusion. No pneumothorax. Heart/Mediastinum: Cardiac structures in configuration with arteriosclerosis. Bones/joints: Mild scoliotic curvature of the spine. XR/XR chest 1V portable [id number] IMPRESSION: Nonacute.
--- NOTE | 2020-08-15 20:42 | ECG_ITS ---
[facility] Test Date: 2020-08-15 Pat Name: Almita Woodward Department: Room: Gender: Female Marketing Underwriter: : 1935 Requested By: Radha Dietrich I Order Number: [id number] Allison MD: Marcin Campos M.D. Measurements Intervals [place] Rate: 78 P: AK: QRS: 73 QRSD: 84 T: 62 QT: 373 QTc: 426 Interpretive Statements ATRIAL FIBRILLATION Compared to ECG 01/15/2020 09:34:03 Sinus rhythm no longer present Electronically Signed On 08-16-2020 17:07:21 CDT by Marcin Campos M.D. [id number]
[2020-08-15 20:55] VITALS: BP 132/80; PULSE 94; RESP 24; O2SAT 97
[2020-08-15 21:00] VITALS: BP 132/80; PULSE 97; RESP 24; O2SAT 94
[2020-08-15 21:02] LABS: Basophils % 0.2 %; Hematocrit 46.4 % (37.0-47.0); Hemoglobin 15.5 g/dL (11.5-15.3); Lymphocytes # 0.6 10^3/uL (0.8-4.8); Lymphocytes % 9.9 %; Mean Corpuscular HGB Conc 33.4 g/dL (30.0-36.0); Mean Corpuscular Hemoglobin 31.3 pg (28.0-34.0); Mean Corpuscular Volume 93.7 fL (81-99); Mean Platelet Volume 10.8 fL (7.4-10.4); Monocytes # 0.3 10^3/uL (0.2-0.9); Monocytes % 5.5 %; Neutrophils # 4.82 10^3/uL (1.8-7.7); Neutrophils % 83.4 %; Nucleated Red Blood Cells % 0 %; Platelet Count 147 10^3/cmm (130-400); Red Blood Count 4.95 10^6/uL (4.1-5.3); Red Cell Distribution Width 13.1 % (12.1-15.1); White Blood Count 5.8 10^3/uL (4.0-10.0)
[2020-08-15 21:23] LABS: Troponin(5th) Baseline 16 ng/L (0-10)
[2020-08-15 21:32] LABS: Alanine Aminotransferase 24 U/L (0-33); Albumin Level 3.5 g/dL (3.5-5.2); Alkaline Phosphatase 95 IU/L (35-105); Aspartate Amino Transferase 26 U/L (0-32); Blood Urea Nitrogen 15 mg/dL (8-23); Calcium 8.9 mg/dL (8.5-10.5); Carbon Dioxide 26 mmol/L (22-29); Chloride 102 mmol/L (98-107); Creatine Phosphokinase 27 U/L (26-192); Glucose 118 mg/dL (65-115); Lipase 48 U/L (13-60); NT Pro B Type Natriuretic Pept 1594 pg/mL (0-450); Osmolality Calculated 290 mOsm/kg (285-295); Sodium 139 mmol/L (136-145); Total Bilirubin 0.6 mg/dL (0.15-1.2); Total Protein 6.5 g/dL (6.6-8.7)
[2020-08-15 22:00] VITALS: BP 120/67; PULSE 91; RESP 20; O2SAT 95
[2020-08-15 22:11] LABS: SARS Covid-2 Antigen Positive (Negative)
--- NOTE | 2020-08-15 22:42 | ECG_ITS ---
[facility] Test Date: 2020-08-15 Pat Name: Almita Woodward Department: Room: Gender: Female Belt Sewer: : 1935 Requested By: Radha Dietrich I Order Number: [id number] Allison MD: Marcin Campos M.D. Measurements Intervals [place] Rate: 96 P: TN: QRS: 70 QRSD: 77 T: 55 QT: 345 QTc: 438 Interpretive Statements ATRIAL FIBRILLATION ABNORMAL RHYTHM ECG Compared to ECG 01/15/2020 09:34:03 Sinus rhythm no longer present Electronically Signed On 08-16-2020 17:21:30 CDT by Marcin Campos M.D. [email or web address]
[2020-08-15 23:00] VITALS: BP 146/81; PULSE 80; RESP 22; O2SAT 92
--- NOTE | 2020-08-15 23:38 | W.ED.WEAKNES ---
HPI - Weakness General: Chief complaint: Weakness Stated complaint: general weakness Time Seen by Provider: 08/15/20 20:30 Source: patient Mode of arrival: ambulatory Limitations: no limitations History of Present Illness: HPI Narrative: She received the Covid 19 vaccine 3 days ago and has been feeling sick since then. She complains of nausea, vomiting, epigastric pain and generalized weakness. She has significant fatigue and she is here to be evaluated for these. MD Complaint: generalized weakness and lack of energy Onset (ago): day(s) (3) Duration: constant Location: generalized Migration: none Severity: severe Relieving factors: none Exacerbating factors: none Context: other (she had the covid vaccine 3 days ago) Associated symptoms: Reports decreased appetite, myalgias, nausea and vomiting; Denies chest pain, chills, confusion, melena, diaphoresis, dysuria, easy bruising, fever(s), headache(s), rash, short of breath or syncope Review of Systems General: Reports: 10 or more systems reviewed and unremarkable except in HPI and below Const: Denies: fever(s), chills or diaphoresis Card: Denies: chest pain or syncope GI: Reports: nausea and vomiting; Denies: melena : Denies: dysuria Neuro: Denies: headache(s) or confusion Trey/Lymph: Denies: easy bruising PFS ED PFSH: Medical History (Reviewed 08/16/20 @ 12:04 by Radha Dietrich MD, [facility] [place]) Atrial fibrillation GERD (gastroesophageal reflux disease) HTN (hypertension) Hx of transient cerebral ischemia Hyperlipidemia Urinary incontinence Family History (Reviewed 08/16/20 @ 12:04 by Radha Dietrich MD, [facility] [place]) Other CAD (coronary artery disease) Cancer Diabetes Denies family history of Anesthesia complication Bleeding disorder Social History (Reviewed 08/16/20 @ 12:04 by Radha Dietrich MD, [facility] [place]) Smoking and tobacco status: never smoked Alcohol intake: never Physical Exam Const: COMMON NORMALS: no acute distress, average body habitus, patient oriented x3, no limitations, healthy appearing, alert and well nourished HENMT: COMMON NORMALS: normocephalic, atraumatic and moist oral mucous membranes HEAD & SCALP: normocephalic and atraumatic Neck/C-Spine: COMMON NORMALS: no meningeal signs and no JVD Resp: COMMON NORMALS: normal respiratory effort, No retractions, No use of accessory muscles, clear to auscultation bilaterally and percussion normal AUSCULTATION: clear to auscultation bilaterally PERCUSSION: percussion normal Cardio: COMMON NORMALS: no JVD, regular rate, regular rhythm, S1 normal heart sound present, S2 normal heart sound present, No gallops present (Cardio), No clicks present (Cardio), No murmurs present (Cardio), No rub (Cardio) and Peripheral pulses 2+ throughout RATE: regular rate RHYTHM: regular rhythm HEART SOUNDS: S1 normal heart sound present and S2 normal heart sound present PERIPHERAL PULSES: Peripheral pulses 2+ throughout GI: COMMON NORMALS: Normal to inspection, nondistended, normoactive bowel sounds present, Soft to palpation, non-tender, No hepatosplenomegaly present, no masses and no bruits PALPATION: Yes Soft to palpation and Yes No hepatosplenomegaly present Extremity: COMMON NORMALS: normal to inspection, full ROM, capillary refill normal, no calf tenderness and no pedal edema Neuro: COMMON NORMALS: patient oriented x3 SENSORIUM/ORIENTATION: Yes alert MENINGEAL SIGNS: Yes no meningeal signs Skin: COMMON NORMALS: no rashes or lesions noted, no wounds, turgor normal, no jaundice, no petechiae and no mottling GENERAL SKIN EXAM: no rashes or lesions noted and turgor normal Course Reevaluation(s): Reevaluation #1: Discussed her lab and imaging findings with her. She tested positive for COVID-19. She is not hypoxic, vital signs are all normal, lab work is unremarkable. She meets the criteria for monoclonal antibody infusion and a referral has been done for this. She is to self isolate for at least 10 days from symptom onset and must be fever free for at least 24 hours. She voiced understanding and is in agreement with the plan. Time: 23:41 Vital Signs: Vital signs: Vital Signs Temperature 98.4 F 08/15/20 18:51 Pulse Rate 91 08/16/20 01:30 Respiratory Rate 16 08/16/20 01:30 Blood Pressure 149/79 08/16/20 01:30 Pulse Oximetry 94 08/16/20 01:30 MDM - Weakness MDM Narrative: Medical decision making narrative: 85-year-old female patient who had the Covid vaccine 3 days ago and unfortunately has been feeling unwell since then. She tested positive for COVID-19 in the emergency department today. She meets criteria for monoclonal antibody infusion and she will be returning for this. An outpatient referral for monoclonal antibody infusion has been done. She is not hypoxic, vital signs are all normal, lab work is unremarkable, there is no indication for hospital admission at this time. Medical Records: Attestation: I reviewed the patient's medical records. Lab Data: Attestation: I reviewed the patient's lab results. Labs: Lab Results 08/15/20 08/15/20 08/15/20 Range/Units 20:50 20:50 20:50 WBC 5.8 (4.0-10.0) 10^3/ uL RBC 4.95 (4.1-5.3) 10^6/u L Hgb 15.5 H (11.5-15.3) g/dL Hct 46.4 (37.0-47.0) % MCV 93.7 (81-99) fL MCH 31.3 (28.0-34.0) pg MCHC 33.4 (30.0-36.0) g/dL RDW 13.1 (12.1-15.1) % Plt Count 147 (130-400) 10^3/c mm MPV 10.8 H (7.4-10.4) fL Neut % (Auto) 83.4 % Lymph % (Auto) 9.9 % Kent % (Auto) 5.5 % Eos % (Auto) 0.0 % Baso % (Auto) 0.2 % Neut # (Auto) 4.82 (1.8-7.7) 10^3/u L Lymph # (Auto) 0.6 L (0.8-4.8) 10^3/u L Kent # (Auto) 0.3 (0.2-0.9) 10^3/u L Eos # (Auto) 0.0 (0.0-0.8) 10^3/u L Baso # (Auto) 0.0 (0.0-0.1) 10^3/u L Nucleated RBC % (a uto) 0 % Nucleated RBCs # 0.0 /100WBC Sodium 139 (136-145) mmol/L Potassium 4.0 (3.5-5.1) mmol/L Chloride 102 (98-107) mmol/L Carbon Dioxide 26 (22-29) mmol/L Anion Gap 15.0 (5-19) BUN 15 (8-23) mg/dL Creatinine 0.7 (0.5-0.9) mg/dL GFR Calculation Not Reportable Glucose 118 H (65-115) mg/dL Calculated Osmolal ity 290 (285-295) mOsm/k g Calcium 8.9 (8.5-10.5) mg/dL Total Bilirubin 0.6 (0.15-1.2) mg/dL AST 26 (0-32) U/L ALT 24 (0-33) U/L Alkaline Phosphata se 95 (35-105) IU/L Creatine Kinase 27 (26-192) U/L Troponin T Baselin e 16 H (0-10) ng/L Troponin T 120 Min apache (0-10) ng/L Delta Troponin T (0-10) ABS# NT-Pro-B Natriuret Pep 1594 H (0-450) pg/mL Total Protein 6.5 L (6.6-8.7) g/dL Albumin 3.5 (3.5-5.2) g/dL Globulin 3.0 (1.3-4.6) g/dL Lipase 48 (13-60) U/L SARS-CoV-2 Ag (Rap id) (Negative) 08/15/20 08/15/20 Range/Units 20:55 23:18 WBC (4.0-10.0) 10^3/ uL RBC (4.1-5.3) 10^6/u L Hgb (11.5-15.3) g/dL Hct (37.0-47.0) % MCV (81-99) fL MCH (28.0-34.0) pg MCHC (30.0-36.0) g/dL RDW (12.1-15.1) % Plt Count (130-400) 10^3/c mm MPV (7.4-10.4) fL Neut % (Auto) % Lymph % (Auto) % Kent % (Auto) % Eos % (Auto) % Baso % (Auto) % Neut # (Auto) (1.8-7.7) 10^3/u L Lymph # (Auto) (0.8-4.8) 10^3/u L Kent # (Auto) (0.2-0.9) 10^3/u L Eos # (Auto) (0.0-0.8) 10^3/u L Baso # (Auto) (0.0-0.1) 10^3/u L Nucleated RBC % (a uto) % Nucleated RBCs # /100WBC Sodium (136-145) mmol/L Potassium (3.5-5.1) mmol/L Chloride (98-107) mmol/L Carbon Dioxide (22-29) mmol/L Anion Gap (5-19) BUN (8-23) mg/dL Creatinine (0.5-0.9) mg/dL GFR Calculation Glucose (65-115) mg/dL Calculated Osmolal ity (285-295) mOsm/k g Calcium (8.5-10.5) mg/dL Total Bilirubin (0.15-1.2) mg/dL AST (0-32) U/L ALT (0-33) U/L Alkaline Phosphata se (35-105) IU/L Creatine Kinase (26-192) U/L Troponin T Baselin e (0-10) ng/L Troponin T 120 Min apache 14.30 H (0-10) ng/L Delta Troponin T -1.70 L (0-10) ABS# NT-Pro-B Natriuret Pep (0-450) pg/mL Total Protein (6.6-8.7) g/dL Albumin (3.5-5.2) g/dL Globulin (1.3-4.6) g/dL Lipase (13-60) U/L SARS-CoV-2 Ag (Rap id) Positive H (Negative) Imaging Data^: CXR: Attestation: I personally reviewed and interpreted this imaging study as follows: Radiologist's impression: [address] [id number] ReportSigned Patient: Jazmyn Woodwardit #: [id number]: 5Acct#:[id number]/Sex: 85 / FADM Date: 08/15/20Loc: ERRoom/Bed:Attending Dr: Ordering Provider/Ordering MD: Radha Dietrich MD, [facility] [place] Date of Service: 08/15/20 Procedure(s): XR chest 1V portable [id number] Accession Number(s): [id number] Report Number: [id number] PROCEDURE INFORMATION: Exam: XR Chest Exam date and time: 08/15/2020 8:41 PM Age: 85 years old Clinical indication: Dyspnea; Additional info: SOB TECHNIQUE: Imaging protocol: XR of the chest. Views: 1 view. Total images: 1 COMPARISON: CR XR chest 1V portable [id number] 01/15/2020 9:35 AM FINDINGS: Lungs: No visible active interstitial or alveolar airspace disease. COPD/chronic bronchitis/emphysema. Mild senile fibrosis. Calcified granulomas of antecedent disease. Pleural spaces: Unremarkable. No pleural effusion. No pneumothorax. Heart/Mediastinum: Cardiac structures in configuration with arteriosclerosis. Bones/joints: Mild scoliotic curvature of the spine. XR/XR chest 1V portable [id number] IMPRESSION: Nonacute. Dictated By:Lance Payan By:Lance Payan Date/Time:08/15/202299DD/ 99 EKG Data^: EKG 1: Attestation: I personally reviewed and interpreted this EKG as follows: EKG interpretation date: 08/15/20 EKG interpretation time: 21:10 Prior EKG tracings: not available for review Interpretation: Atrial fibrillation. Heart rate [address] changes. EKG 2: Attestation: I personally reviewed and interpreted this EKG as follows: EKG interpretation date: 08/15/20 EKG interpretation time: 23:08 Prior EKG tracings: available for review Interpretation: Atrial fibrillation. Heart rate [address] changes. No significant change from earlier. Discharge Plan Discharge Patient Disposition: Home Clinical Impression: COVID-19 Condition: Stable Prescriptions: Continued metoprolol succinate 25 mg tablet extended release 24 hr 25 mg PO DAILY Qty: 90 RF: 3 rivaroxaban 20 mg tablet 20 mg PO DAILY@04 Qty: 30 RF: 3 amlodipine 2.5 mg tablet 2.5 mg PO DAILY Qty: 30 RF: 3 atorvastatin [Lipitor] 20 mg tablet 20 mg PO DAILY Qty: 30 RF: 3 oxybutynin chloride 15 mg tablet extended release 24hr 15 mg PO DAILY@04 RF: 0 pantoprazole 40 mg tablet,delayed release (DR/EC) 40 mg PO DAILY@04 RF: 0 furosemide 20 mg tablet 20 mg PO DAILY@04 RF: 0 Discharge Orders: Discharge ED (Routine); Ordered 08/15/20 Ordered By: Radha Dietrich Referrals: Christi Paris PA-C [Primary Care Provider] - 1-3 days Discharge Diet: Usual diet Discharge Activity: Increase activity as tolerated Patient Instructions: Viral Syndrome (ED) Activity Restrictions/Additional Instructions: Return for any new or worsening symptoms. Follow-up with your primary care provider within 3 days via telemedicine. You need to self isolate for at least 10 days from when you symptoms started. You will be contacted by case management to schedule a monoclonal antibody infusion. The antibody infusion is to prevent you from getting severely sick and to prevent hospitalization. Is just a one-time medication. Coding Level of Care Code ED Tube Splicer for Chase Maier
[2020-08-16 01:30] VITALS: BP 149/79; PULSE 91; RESP 16; O2SAT 94
--- NOTE | 2020-08-17 15:32 | DCPLANNER ---
retail advertising sales manager had message to schedule the BAM infusion for patient. retail advertising sales manager faxed order for the BAM infusion to centralized scheduling. Centralized scheduling will call patient with appointment information.
== END 2020-08-16 01:34 | disposition home or self-care (01) ==
PROVIDERS: Emergency Provider Family Medicine; PCP Physician Assistant
DX: U07.1 COVID-19 (principal); I10 Essential (primary) hypertension; E78.5 Hyperlipidemia, unspecified
CPT/HCPCS: 71045; 80053; 82550; 83690; 83880; 84484; 85025; 87426; 93005; 99284

== ENCOUNTER 2020-08-19 06:19 | Outpatient (CLI) | payer MEDICARE, SELFPAY ==
[2020-08-19 06:46] VITALS: BMI 23.1
--- NOTE | 2020-08-19 06:54 | A.OFFVIS_ITS ---
Patient Information COVID 19 common symptoms: positive fever(s), chills, cough, non-productive cough, dyspnea, fatigue, body aches, headache(s), throat pain, nasal congestion, nausea and diarrhea COVID 19 other sytmptoms: negative requiring oxygen Severity: mild Treatment prior to arrival: none Other details: 85-year-old female presents emergency room she has a history of heart disease or fibrillation she is on anticoagulants. Patient began having Covid symptoms 7 to 9 days ago. She had a positive test last week she is continuing to be ill she does meet criteria and wishes to proceed monoclonal antibodies ordered. [facility] COVID test results: SARS-CoV-2 Antigen (Rapid) Positive (Negative) H 08/15/20 20:55 08/15/20 Criteria/Plan Inclusion/Exclusion Criteria weight >/= 40kg, + direct test </= 10 days ago and symptom onset </= 10 days ago age >/= 65 and age >/= 55 and has hypertension not requiring hospitalization, not requiring oxygen (if not chronically on oxygen) and no increase oxygen requirement (if chronically on oxygen) Patient education patient/family/caregiver received/reviewed fact sheet, Emergency Use Authorization/unapproved drug status discussed with patient/family/caregiver, alternatives to this treatment discussed with patient/family/caregiver, risks and benefits of medication reviewed with patient/family/caregiver, patient/family/caregiver given opportunity for questions, which were answered and patient consents to receiving Monoclonal Antibody Treatment Related diagnosis (1) COVID-19: (2) HTN (hypertension): Qualifiers: Hypertension type: essential hypertension Qualified Code(s): I10 - Essential (primary) hypertension Plan for treatment Meets criteria for Monoclonal Antibody infusion Ordering Monoclonal Antibody infusion for today
[2020-08-19 08:00] VITALS: BP 104/67; PULSE 83; RESP 18; O2SAT 90
[2020-08-19 09:26] VITALS: PULSE 84; O2SAT 90
--- NOTE | 2020-08-27 13:31 | DCPLANNER ---
manager entry had message that patient received the monoclonal antibody infusion. manager entry called patient to check on patient after receiving the infusion. manager entry was unable to speak with patient and unable to leave a message for patient due to voicemail box being full.
== END 2020-08-19 06:20 | disposition home or self-care (01) ==
PROVIDERS: PCP Physician Assistant; Visit Provider Family Medicine
DX: U07.1 COVID-19 (principal); I10 Essential (primary) hypertension; I50.9 Heart failure, unspecified; Z79.01 Long term (current) use of anticoagulants
CPT/HCPCS: 96365

== ENCOUNTER 2020-10-26 16:34 | Emergency (ER) | payer MEDICARE, SELFPAY ==
[2020-10-26] VITALS (22 sets, daily range): BP systolic 115–142; BP diastolic 61–91; PULSE 85–99; RESP 17–18; TEMP 36.5–38.3; O2SAT 80–100; BMI 21.6
--- NOTE | 2020-10-26 17:23 | CTR_ITS ---
PROCEDURE INFORMATION: Exam: CT Abdomen And Pelvis Without Contrast Exam date and time: 10/26/2020 5:23 PM Age: 85 years old Clinical indication: Abdominal pain; Flank; Other: Bilat; Prior surgery; Surgery type: Gb, colon; Patient HX: HX of colon cancer; Additional info: Flank pain TECHNIQUE: Imaging protocol: Computed tomography of the abdomen and pelvis without contrast. Radiation optimization: All CT scans at this facility use at least one of these dose optimization techniques: automated exposure control; mA and/or kV adjustment per patient size (includes targeted exams where dose is matched to clinical indication); or iterative reconstruction. COMPARISON: MRI Pelvis w/wo [id number] 05/28/2019 11:00 AM RADIATION DOSE METRICS: Total DLP (mGy-cm): 604.56 FINDINGS: Lungs: There is a noncalcified 9 mm right lower lobe pulmonary nodule on axial series 2, image 4. Liver: The liver is normal. Gallbladder and bile ducts: The gallbladder is absent. There is ectasia of the common bile duct and central intrahepatic ducts. Pancreas: The pancreas is unremarkable. Spleen: Splenic size is normal. There are scattered calcifications consistent with healed granulomas. Adrenal glands: There is a 14 mm intermediate density left adrenal nodule. Kidneys and ureters: There is a simple cyst in the left kidney. The right kidney and ureter are unremarkable. Stomach and bowel: The stomach is decompressed, preventing meaningful evaluation of wall thickness. The small bowel is nondilated. The colon is unremarkable. Appendix: The appendix is not visible. Intraperitoneal space: There is no free air or significant intraperitoneal free fluid. Vasculature: There is mild aortic atherosclerotic disease. 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 Lymph nodes: There is no lymphadenopathy in the retroperitoneum, mesentery, pelvis or inguinal regions. Urinary bladder: The urinary bladder is unremarkable. Reproductive: The uterus is absent. There is no adnexal mass or large cyst. Bones/joints: There is mild degenerative disease in the lumbar spine. There is severe degenerative disease at the right hip. There is moderate degenerative disease at the left hip. The pelvis and proximal femora are intact. Soft tissues: The abdominal wall is intact. CT/CT abdomen pelvis wo con [id number] IMPRESSION: 1. No obstructive uropathy. No stones. 2. 9 mm right lower lobe pulmonary nodule. For both low risk and high risk patients, consider CT Chest at 3 months, PET/CT, or biopsy. (Reference: Sary) 3. Left adrenal nodule. Non-emergent adrenal CT is recommended. Non-emergent chemical shift MRI (CS-MR) may be considered. (Reference: Mary) 4. Incidental findings above. COMMENTS: 1. Consistent with the [place] [employer]'s Incidental Findings Committee white paper (J Am Hal Radiol 2017): For any incidental adrenal lesion greater than 1 cm but less than 4 cm classified in this report as benign, likely benign, or containing fat (including classification as an adenoma or myelolipoma), no follow-up imaging is recommended per consensus recommendations based on imaging criteria. Further lab evaluation could be pursued if warranted based on clinical findings. 2. Consistent with the [place] [employer]'s Incidental Findings Committee white paper (J Am Hal Radiol 2018): Any incidental renal lesion less than 1 cm or classified as too small to characterize, or any incidental cystic renal lesion characterized as simple-appearing, is likely benign. No follow-up imaging is recommended for these lesions per consensus recommendations based on imaging criteria. REFERENCES: 1. Sary H, et al. Guidelines for Management of Incidental Pulmonary Nodules Detected on CT Images: From the Fleischner Society 2017. Radiology. 2017;284(1):228-243. 2. Mary CARRASCO et al. Management of Incidental Adrenal Masses: A White Paper of the ACR Incidental Findings Committee. J Am Hal Radiol. 2017;14(8):6191-2740. Radiation Dose CTDIVOL = (mGy): DLP = 604.56 (mGy-cm)
--- NOTE | 2020-10-26 17:23 | ECG_ITS ---
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
--- NOTE | 2020-10-26 17:24 | W.ED.ABDPA2 ---
HPI - Abdominal Pain General: Chief Complaint: Abdominal Pain Stated Complaint: POSS LOWER GI BLEED Time Seen by Provider: 10/26/20 17:15 History of Present Illness: HPI narrative: This patient is an 85-year-old female who presents to the emergency department for an evaluation for concerns for lower GI bleeding. Patient states she does have a history of colon cancer that was treated 3 years ago. Patient states he did have some metastatic disease and they quit treating her. Patient states she is on blood thinners related to her colon cancer for concerns of development of possible blood clots. Patient states she started having blood in her stool today. We will do medical evaluation treat as needed MD elicited complaint: abdominal pain Pertinent past history: none and gastrointestinal bleeding Onset (ago): hour(s) Pain Consistency: intermittent Location: None Severity: moderate Associated Symptoms: Reports hematochezia; Denies chills, dysuria, fever(s), nausea and vomiting Review of Systems General: Reports: 10 or more systems reviewed and unremarkable except in HPI and below Const: Denies: fever(s), chills, body aches or fatigue Eyes: Denies: change in vision or blurry vision ENMT: Denies: throat pain, hoarseness or mouth pain Card: Denies: chest pain, palpitations, irregular heart rhythm, edema, swelling of feet/ankles or lightheadedness Resp: Denies: dyspnea, productive cough, non-productive cough, wheezing or pain on inspiration GI: Reports: hematochezia; Denies: abdominal pain, nausea or vomiting : Denies: flank pain, difficulty voiding, dysuria, urinary frequency, urinary urgency or urinary hesitancy Musc: Denies: neck pain, back pain, extremity pain, extremity swelling, joint pain, joint swelling, joint redness, joint warmth or limited range of motion Skin/Breast: Denies: rash, pruritus, erythema or skin tenderness Neuro: Denies: headache(s), numbness in extremities or weakness in extremities Psych: Denies: anxiety or depression PFS ED PFSH: Medical History Atrial fibrillation GERD (gastroesophageal reflux disease) HTN (hypertension) Hx of transient cerebral ischemia Hyperlipidemia Urinary incontinence Family History Other CAD (coronary artery disease) Cancer Diabetes Denies family history of Anesthesia complication Bleeding disorder Social History Smoking and tobacco status: never smoked Alcohol intake: never Physical Exam Const: COMMON NORMALS: no acute distress, average body habitus, patient oriented x3, no limitations, healthy appearing, alert and well nourished HENMT: COMMON NORMALS: normocephalic, atraumatic, hearing grossly normal bilaterally, external ears normal, EAC's normal, TM's normal bilaterally, Normal external nose present, Normal nasal mucous membranes and turbinates present, moist oral mucous membranes, oropharynx normal, dentition normal and gingiva normal HEAD & SCALP: normocephalic and atraumatic NOSE: Normal external nose present and Normal nasal mucous membranes and turbinates present EXTERNAL EAR: Yes external ears normal EXTERNAL AUDITORY CANAL: EAC's normal TYMPANIC MEMBRANE: TM's normal bilaterally Neck/C-Spine: COMMON NORMALS: full ROM, no lymphadenopathy, supple, no meningeal signs, no JVD, Thyroid normal and No carotid bruits THYROID: Thyroid normal Chest: COMMONS NORMALS: normal inspection of the chest, normal palpation of entire chest wall, normal inspection of the breasts and normal palpation of the breasts Breast/axilla inspection: Yes normal inspection of the breasts BREAST/AXILLA PALPATION: Yes normal palpation of the breasts Resp: COMMON NORMALS: normal respiratory effort, No retractions, No use of accessory muscles, clear to auscultation bilaterally and percussion normal AUSCULTATION: clear to auscultation bilaterally PERCUSSION: percussion normal Cardio: COMMON NORMALS: no JVD, regular rate, regular rhythm, S1 normal heart sound present, S2 normal heart sound present, No gallops present (Cardio), No clicks present (Cardio), No murmurs present (Cardio), No rub (Cardio) and Peripheral pulses 2+ throughout RATE: regular rate RHYTHM: regular rhythm HEART SOUNDS: S1 normal heart sound present and S2 normal heart sound present PERIPHERAL PULSES: Peripheral pulses 2+ throughout GI: COMMON NORMALS: Normal to inspection, nondistended, normoactive bowel sounds present, Soft to palpation, non-tender, No hepatosplenomegaly present, no masses and no bruits PALPATION: Yes Soft to palpation and Yes No hepatosplenomegaly present Back/Pelvis: COMMON NORMALS: thoracic and lumbar spine normal to inspection, no thoracic nor lumbar tenderness, thoraco-lumbar ROM normal and straight leg raise negative bilaterally Extremity: COMMON NORMALS: normal to inspection, full ROM, capillary refill normal, no joint enlargement, no clubbing, cyanosis or edema, no calf tenderness and no pedal edema Neuro: COMMON NORMALS: patient oriented x3 SENSORIUM/ORIENTATION: Yes alert MENINGEAL SIGNS: Yes no meningeal signs Course Reevaluation(s): Reevaluation #1: Negative evaluation in the emergency department for any acute findings. Patient does have a history of hematochezia related to her blood thinner. Daughter is at the bedside at this time. States that this happened a few weeks ago and they initially stopped her blood thinner and then introduce it back at half-strength and then has moved up to 15 mg. We discussed at length with patient about options and I advised the patient will be a good idea to observe her in the ER but they have declined. Stated they had recently had a colonoscopy that was negative for any acute findings. Believe that the hematochezia was rated to the bleeding. This history is per patient's daughter. Patient is agreeable to be placed on the antibiotic to trace UTI. Patient is instructed to hold her blood thinner medication for the next 48 hours. And follow-up with primary care physician for further evaluation and treatment. Patient should return to the emergency department immediately if bleeding returns. Patient will be discharged with family per the request. Time: 19:47 Vital Signs: Vital signs: Vital Signs Temperature 97.7 F 10/26/20 17:00 Pulse Rate 99 10/26/20 17:00 Respiratory Rate 17 10/26/20 17:00 Blood Pressure 142/81 10/26/20 18:40 Pulse Oximetry 80 L 10/26/20 18:40 MDM - Abdominal Pain MDM Narrative: Medical decision making narrative: Negative evaluation in the emergency department for any acute findings. Patient does have a history of hematochezia related to her blood thinner. Daughter is at the bedside at this time. States that this happened a few weeks ago and they initially stopped her blood thinner and then introduce it back at half-strength and then has moved up to 15 mg. We discussed at length with patient about options and I advised the patient will be a good idea to observe her in the ER but they have declined. Stated they had recently had a colonoscopy that was negative for any acute findings. Believe that the hematochezia was rated to the bleeding. This history is per patient's daughter. Patient is agreeable to be placed on the antibiotic to trace UTI. Patient is instructed to hold her blood thinner medication for the next 48 hours. And follow-up with primary care physician for further evaluation and treatment. Patient should return to the emergency department immediately if bleeding returns. Patient will be discharged with family per the request. Differential Diagnosis: Differential diagnosis abdominal pain: Likely abdominal pain, acute appendicitis, calculus of kidney, constipation, diverticulitis, endometriosis, gastroenteritis, pancreatitis and small bowel obstruction Medical Records: Attestation: I reviewed the patient's medical records. Lab Data: Attestation: I reviewed the patient's lab results. Labs: Lab Results 10/26/20 10/26/20 10/26/20 17:07 17:07 17:07 WBC 14.1 10^3/uL H 10 ^3/uL (4.0-10.0) RBC 4.22 10^6/uL 10^6 /uL (4.1-5.3) Hgb 13.4 g/dL g/dL (11.5-15.3) Hct 41.4 % % (37.0-47.0) MCV 98.1 fl fl (81-99) MCH 31.8 pg pg (28.0-34.0) MCHC 32.4 g/dL g/dL (30.0-36.0) RDW 15.8 % H % (12.1-15.1) Plt Count 195 10^3/cmm 10^3 /cmm (130-400) MPV 11.1 fL H fL (7.4-10.4) Neut % (Auto) 90.2 % % Lymph % (Auto) 4.2 % % Saline % (Auto) 4.9 % % Eos % (Auto) 0.1 % % Baso % (Auto) 0.2 % % Neut # (Auto) 12.70 10^3/uL H 1 0^3/uL (1.8-7.7) Lymph # (Auto) 0.6 10^3/uL L 10^ 3/uL (0.8-4.8) Saline # (Auto) 0.7 10^3/uL 10^3/ uL (0.2-0.9) Eos # (Auto) 0.0 10^3/uL 10^3/ uL (0.0-0.8) Baso # (Auto) 0.0 10^3/uL 10^3/ uL (0.0-0.1) Nucleated RBC % (a uto) 0 % % Nucleated RBCs # 0.0 /100WBC /100W BC Sodium 142 mmol/L mmol/L (136-145) Potassium 3.7 mmol/L mmol/L (3.5-5.1) Chloride 103 mmol/L mmol/L (98-107) Carbon Dioxide 25 mmol/L mmol/L (22-29) Anion Gap 17.7 (5-19) BUN 18 mg/dL mg/dL (8-23) Creatinine 0.6 mg/dL mg/dL (0.5-0.9) GFR Calculation Not Reportable Glucose 108 mg/dL mg/dL (65-115) Calculated Osmolal ity 296 mOsm/kg H mOs m/kg (285-295) Calcium 9.0 mg/dL mg/dL (8.5-10.5) Total Bilirubin 0.8 mg/dL mg/dL (0.15-1.2) AST 23 U/L U/L (0-32) ALT 15 U/L U/L (0-33) Alkaline Phosphata se 97 IU/L IU/L (35-105) Total Protein 7.4 g/dL g/dL (6.6-8.7) Albumin 3.7 g/dL g/dL (3.5-5.2) Globulin 3.7 g/dL g/dL (1.3-4.6) Urine Color Yellow (Yellow) Urine Appearance Sl hazy (CLEAR) Urine pH 6.5 (5-7) Ur Specific Gravit y 1.010 (1.005-1.030) Urine Protein Neg (Negative) Urine Glucose (UA) Norm (Normal) Urine Ketones 1+ H (Negative) Urine Blood Neg (Negative) Urine Nitrate Positive H (Negative) Urine Bilirubin Neg (Negative) Urine Urobilinogen Norm mg/dL mg/dL (Negative) Ur Leukocyte Marlena ase Negative (Negative) Urine RBC 0-4 /hpf H /hpf (0-2) Urine WBC 10-15 /hpf H /hpf (0-5) Ur Squamous Epith Cells 0-4 /hpf H /hpf (0-5) Amorphous Sediment Not Reportable Urine Bacteria 4+ /hpf H /hpf (NONE) Imaging Data ^: CT Abd/Pel: Attestation: I personally reviewed and interpreted this imaging study as follows: Radiologist's impression: FINDINGS: Lungs: There is a noncalcified 9 mm right lower lobe pulmonary nodule on axial series 2, image 4. Liver: The liver is normal. Gallbladder and bile ducts: The gallbladder is absent. There is ectasia of the common bile duct and central intrahepatic ducts. Pancreas: The pancreas is unremarkable. Spleen: Splenic size is normal. There are scattered calcifications consistent with healed granulomas. Adrenal glands: There is a 14 mm intermediate density left adrenal nodule. Kidneys and ureters: There is a simple cyst in the left kidney. The right kidney and ureter are unremarkable. Stomach and bowel: The stomach is decompressed, preventing meaningful evaluation of wall thickness. The small bowel is nondilated. The colon is unremarkable. Appendix: The appendix is not visible. Intraperitoneal space: There is no free air or significant intraperitoneal free fluid. Vasculature: There is mild aortic atherosclerotic disease. 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 Lymph nodes: There is no lymphadenopathy in the retroperitoneum, mesentery, pelvis or inguinal regions. Urinary bladder: The urinary bladder is unremarkable. Reproductive: The uterus is absent. There is no adnexal mass or large cyst. Bones/joints: There is mild degenerative disease in the lumbar spine. There is severe degenerative disease at the right hip. There is moderate degenerative disease at the left hip. The pelvis and proximal femora are intact. Soft tissues: The abdominal wall is intact. CT/CT abdomen pelvis wo con [id number] IMPRESSION: 1. No obstructive uropathy. No stones. 2. 9 mm right lower lobe pulmonary nodule. For both low risk and high risk patients, consider CT Chest at 3 months, PET/CT, or biopsy. (Reference: [facility]) 3. Left adrenal nodule. Non-emergent adrenal CT is recommended. Non-emergent chemical shift MRI (CS-MR) may be considered. (Reference: [facility]) 4. Incidental findings above. EKG Data ^: EKG 1: Attestation: I personally reviewed and interpreted this EKG as follows: EKG interpretation date: 10/26/20 EKG interpretation time: 17:26 Prior EKG tracings: available for review Ischemic changes: non-specific ST-T wave changes Interpretation: Atrial fibrillation nonspecific T wave changes heart rate 104 Discharge Plan Discharge Patient Disposition: Home Clinical Impression: Hematochezia due to medication, UTI (urinary tract infection), Urinary incontinence Condition: Stable Prescriptions: New cephalexin 500 mg capsule 500 mg PO BID 7 Days Qty: 14 RF: 0 No Action nitroglycerin 0.3 mg tablet, sublingual 0.3 mg sublingual Q5M PRN (Reason: Chest Pain) RF: 0 ascorbic acid (vitamin C) 1,000 mg tablet 500 mg PO DAILY RF: 0 One-A-Day Women's 50 Plus 400-20 mcg tablet 1 tab PO DAILY RF: 0 rivaroxaban 15 mg tablet 15 mg PO DAILY@04 Qty: 90 RF: 3 atorvastatin [Lipitor] 20 mg tablet 20 mg PO DAILY Qty: 30 RF: 3 metoprolol succinate 25 mg tablet extended release 24 hr 25 mg PO DAILY Qty: 90 RF: 3 oxybutynin chloride 15 mg tablet extended release 24hr 15 mg PO DAILY@04 RF: 0 pantoprazole 40 mg tablet,delayed release (DR/EC) 40 mg PO DAILY@04 RF: 0 furosemide 20 mg tablet 20 mg PO DAILY@04 RF: 0 amlodipine 2.5 mg tablet 2.5 mg PO DAILY RF: 0 Discharge Orders: Discharge ED (Routine); Ordered 10/26/20 Ordered By: Mega Adler Referrals: Christi Paris PA-C [Primary Care Provider] - Discharge Diet: Advance as tolerated Discharge Activity: Resume usual activity Patient Instructions: Opioid Safety Activity Restrictions/Additional Instructions: Hold blood thinning medications for the next 2 days. Follow-up with primary care physician to discuss options due to recurrent rectal bleeding./Hematochezia. Return to the emergency department if symptoms fail to improve or worsen. You are being discharged home per your request. Take antibiotics as instructed. Coding Level of Care Code ED Chalk Molding Machine Operator for Rahg Fwd Exam Comprehensive
[2020-10-26] MEDS: sodium chloride 0.9% 1,000 ML 999 ML IV (17:48)
[2020-10-26 18:15] LABS: Basophils % 0.2 %; Eosinophils % 0.1 %; Hematocrit 41.4 % (37.0-47.0); Hemoglobin 13.4 g/dL (11.5-15.3); Lymphocytes # 0.6 10^3/uL (0.8-4.8); Lymphocytes % 4.2 %; Mean Corpuscular HGB Conc 32.4 g/dL (30.0-36.0); Mean Corpuscular Hemoglobin 31.8 pg (28.0-34.0); Mean Corpuscular Volume 98.1 fl (81-99); Mean Platelet Volume 11.1 fL (7.4-10.4); Monocytes # 0.7 10^3/uL (0.2-0.9); Monocytes % 4.9 %; Neutrophils % 90.2 %; Nucleated Red Blood Cells % 0 %; Platelet Count 195 10^3/cmm (130-400); Red Blood Count 4.22 10^6/uL (4.1-5.3); Red Cell Distribution Width 15.8 % (12.1-15.1); White Blood Count 14.1 10^3/uL (4.0-10.0)
[2020-10-26 18:27] LABS: Alanine Aminotransferase 15 U/L (0-33); Albumin Level 3.7 g/dL (3.5-5.2); Alkaline Phosphatase 97 IU/L (35-105); Anion Gap 17.7 (5-19); Aspartate Amino Transferase 23 U/L (0-32); Blood Urea Nitrogen 18 mg/dL (8-23); Carbon Dioxide 25 mmol/L (22-29); Chloride 103 mmol/L (98-107); Globulin 3.7 g/dL (1.3-4.6); Glucose 108 mg/dL (65-115); Osmolality Calculated 296 mOsm/kg (285-295); Potassium 3.7 mmol/L (3.5-5.1); Sodium 142 mmol/L (136-145); Total Bilirubin 0.8 mg/dL (0.15-1.2); Total Protein 7.4 g/dL (6.6-8.7)
[2020-10-26 18:57] LABS: Add Urine Culture? Yes; Add Urine Microscopic? YES; Bacteria Urine 4+ /hpf; Bilirubin Urine Neg (Negative); Blood Urine Neg (Negative); Glucose Urine UA Norm (Normal); Ketones Urine 1+ (Negative); Leukocyte Esterase Urine Negative (Negative); Nitrate Urine Positive (Negative); Protein Urine Neg (Negative); RBC Urine 0-4 /hpf (0-2); Squamous Epithelial Cell Urine 0-4 /hpf (0-5); Urine Appearance SL Hazy (CLEAR); Urine Color Yellow (Yellow); Urobilinogen Urine Norm (Negative); pH Urine 6.5 (5-7)
[2020-10-26] MEDS: cefTRIAXone 1,000 MG in sodium chloride 0.9% (plus) 50 ML 100 MG IV (20:02)
== END 2020-10-26 20:50 | disposition home or self-care (01) ==
PROVIDERS: Emergency Provider Emergency Medicine; PCP Physician Assistant
DX: K92.1 Melena (principal); D68.32 Hemorrhagic disorder due to extrinsic circulating anticoagulants; T45.515A Adverse effect of anticoagulants, initial encounter; N39.0 Urinary tract infection, site not specified; R32 Unspecified urinary incontinence; I10 Essential (primary) hypertension; E78.5 Hyperlipidemia, unspecified
CPT/HCPCS: 74176; 80053; 81001; 85025; 87077; 87086; 87186; 93005; 96365; 99284; J0696; J7030

== ENCOUNTER 2021-04-10 08:58 | Emergency (ER) | payer MEDICARE, SELFPAY ==
--- NOTE | 2021-04-10 09:09 | XRR_ITS ---
PROCEDURE INFORMATION: Exam: XR Chest Exam date and time: 04/10/2021 9:09 AM Age: 85 years old Clinical indication: Pain; Chest pressure; Additional info: Chest pain TECHNIQUE: Imaging protocol: XR of the chest. Views: 1 view. COMPARISON: CR XR chest 1V portable [id number] 08/15/2020 9:52 PM FINDINGS: Lungs: Unremarkable. No consolidation. Pleural spaces: Unremarkable. No pleural effusion. No pneumothorax. Heart/Mediastinum: Unremarkable. No cardiomegaly. Bones/joints: Unremarkable. XR/XR chest 1V portable [id number] IMPRESSION: No acute findings.
--- NOTE | 2021-04-10 09:09 | ECG_ITS ---
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 Measurements Intervals [place] Rate: 67 P: IN: QRS: 64 QRSD: 78 T: 50 QT: 392 QTc: 417 Interpretive Statements ATRIAL FIBRILLATION ABNORMAL RHYTHM ECG Compared to ECG 10/26/2020 17:23:22 T-wave abnormality no longer present Electronically Signed On 04-11-2021 12:09:49 GERICARE AIDE TEACHER by Luisa Thomas M.D. [id number] f
[2021-04-10 09:19] LABS: Basophils % 0.4 %; Eosinophils # 0.1 10^3/uL (0.0-0.8); Eosinophils % 2.4 %; Hematocrit 43.2 % (37.0-47.0); Hemoglobin 14.4 g/dL (11.5-15.3); Lymphocytes # 1.5 10^3/uL (0.8-4.8); Lymphocytes % 31.9 %; Mean Corpuscular HGB Conc 33.3 g/dL (30.0-36.0); Mean Corpuscular Hemoglobin 31.6 pg (28.0-34.0); Mean Corpuscular Volume 94.7 fl (81-99); Mean Platelet Volume 10.9 fL (7.4-10.4); Monocytes # 0.4 10^3/uL (0.2-0.9); Monocytes % 9.1 %; Neutrophils # 2.59 10^3/uL (1.8-7.7); Neutrophils % 55.8 %; Nucleated Red Blood Cells % 0 %; Platelet Count 218 10^3/cmm (130-400); Red Blood Count 4.56 10^6/uL (4.1-5.3); Red Cell Distribution Width 13.9 % (12.1-15.1); White Blood Count 4.6 10^3/uL (4.0-10.0)
--- NOTE | 2021-04-10 09:23 | ED_ITS ---
HPI - Chest Pain General: Chief Complaint: Chest Pain Stated Complaint: CHEST PAIN Time Seen by Provider: 04/10/21 09:06 Source: patient Limitations: no limitations History of Present Illness: 85-year-old female comes in complaining of chest pain. She relates her chest pain is due to her not being able to swallow. She says been going on for several weeks if not months. Last 24 hours she had a very difficult time swallowing she called EMS they gave her nitroglycerin she said that relieved her discomfort and she is able to swallow again now but prior to that she was not still able to swallow any liquids at all. She does have reproducible chest pain with palpation across the lower portion of the sternum. She denies any radiation of the pain to neck or jaw or arms or back. She has not had any fever sweats or chills. MD complaint: chest pain Onset (ago): week(s) (More urgently last 24 hours but now resolved) Timing of current episode: episodic Onset: during rest and after eating Pain location: left chest Pain radiation: none Severity: moderate Quality: tightness and aching Relieving factors: nitroglycerin Exacerbating factors: nothing Associated symptoms: Reports abdominal pain, nausea and vomiting; Deny diaphoresis, dyspnea, fever(s), leg edema, palpitations, sense of impending doom or syncope Treatment prior to arrival: nitroglycerin Review of Systems Const: Denies: fever(s) or diaphoresis ENMT: Denies: throat pain, ear or mastoid pain, nasal discharge or nasal marisabel estion Card: Denies: palpitations or syncope Resp: Denies: dyspnea GI: Reports: abdominal pain, nausea and vomiting : Denies: flank pain, difficulty voiding, dysuria, urinary frequency or urinary urgency Skin/Breast: Denies: rash or pruritus PFS ED PFSH: Medical History Atrial fibrillation GERD (gastroesophageal reflux disease) HTN (hypertension) Hx of transient cerebral ischemia Hyperlipidemia Urinary incontinence Family History Other CAD (coronary artery disease) Cancer Diabetes Denies family history of Anesthesia complication Bleeding disorder Social History Smoking and tobacco status: never smoked Alcohol intake: never Physical Exam Const: COMMON NORMALS: no acute distress GENERAL APPEARANCE: cooperative and comfortable ORIENTATION/CONSCIOUSNESS: Yes awake, Yes oriented to person, Yes oriented to place and Yes oriented to time HENMT: COMMON NORMALS: normocephalic, atraumatic and hearing grossly normal bilaterally HEAD & SCALP: normocephalic and atraumatic Neck/C-Spine: COMMON NORMALS: no JVD Chest: OTHER: Reproducible chest pain with palpation of the lower portion of the sternum Resp: COMMON NORMALS: normal respiratory effort, No retractions, No use of accessory muscles and clear to auscultation bilaterally AUSCULTATION: clear to auscultation bilaterally Cardio: COMMON NORMALS: no JVD, regular rate, regular rhythm and No murmurs present (Cardio) RATE: regular rate RHYTHM: regular rhythm GI: COMMON NORMALS: Soft to palpation and No hepatosplenomegaly present AUSCULTATION: Yes normoactive bowel sounds PALPATION: Yes Soft to palpation, No Tenderness to palpation present (GI), No Guarding due to palpation present (GI) and Yes No hepatosplenomegaly present Extremity: COMMON NORMALS: normal to inspection, capillary refill normal, no clubbing, cyanosis or edema, no calf tenderness and no pedal edema Neuro: SENSORIUM/ORIENTATION: Yes oriented to person, Yes oriented to place and Yes oriented to time Skin: COMMON NORMALS: no rashes or lesions noted GENERAL SKIN EXAM: no rashes or lesions noted Course Vital Signs: Vital signs: Vital Signs Temperature 98.0 F 04/10/21 09:25 Pulse Rate 76 04/10/21 12:24 Respiratory Rate 17 04/10/21 12:24 Blood Pressure 148/93 04/10/21 12:24 Pulse Oximetry 99 04/10/21 12:24 MDM - Chest Pain Medical Decision Making Pain reproducible palpation needs more GI in nature. Cardiac enzymes are negative COVID discharge her home double up on her pantoprazole to 40 twice daily and set her up for a cardiac stress test return shows worsening symptoms. She had described earlier that she did something it sounded like she might have an esophageal obstruction she is able to swallow now without difficulty she has recurrent she should return. Follow-up with her primary care doctor she tells me she recently with the last few months had an EGD there was no stricture concerned she may have developed 1 may need to consider repeating it if symptoms persist. Medical Records I reviewed the patient's medical records. Lab Data I reviewed the patient's lab results. : 04/10/21 08:17 04/10/21 08:17 Radiology Impressions Chest X-Ray 04/10/21 09:09 IMPRESSION: No acute findings. Laboratory Results WBC 4.6 10^3/uL (4.0-10.0) 04/10/21 08:17 RBC 4.56 10^6/uL (4.1-5.3) 04/10/21 08:17 Hgb 14.4 g/dL (11.5-15.3) 04/10/21 08:17 Hct 43.2 % (37.0-47.0) 04/10/21 08:17 MCV 94.7 fl (81-99) 04/10/21 08:17 MCH 31.6 pg (28.0-34.0) 04/10/21 08:17 MCHC 33.3 g/dL (30.0-36.0) 04/10/21 08:17 RDW 13.9 % (12.1-15.1) 04/10/21 08:17 Plt Count 218 10^3/cmm (130-400) 04/10/21 08:17 MPV 10.9 fL (7.4-10.4) H 04/10/21 08:17 Neut % (Auto) 55.8 % 04/10/21 08:17 Lymph % (Auto) 31.9 % 04/10/21 08:17 [place] % (Auto) 9.1 % 04/10/21 08:17 Eos % (Auto) 2.4 % 04/10/21 08:17 Baso % (Auto) 0.4 % 04/10/21 08:17 Neut # (Auto) 2.59 10^3/uL (1.8-7.7) 04/10/21 08:17 Lymph # (Auto) 1.5 10^3/uL (0.8-4.8) 04/10/21 08:17 [place] # (Auto) 0.4 10^3/uL (0.2-0.9) 04/10/21 08:17 Eos # (Auto) 0.1 10^3/uL (0.0-0.8) 04/10/21 08:17 Baso # (Auto) 0.0 10^3/uL (0.0-0.1) 04/10/21 08:17 Nucleated RBC % (auto) 0 % 04/10/21 08:17 Nucleated RBCs # 0.0 /100WBC 04/10/21 08:17 Sodium 144 mmol/L (136-145) 04/10/21 08:17 Potassium 4.2 mmol/L (3.5-5.1) 04/10/21 08:17 Chloride 107 mmol/L (98-107) 04/10/21 08:17 Carbon Dioxide 23 mmol/L (22-29) 04/10/21 08:17 Anion Gap 18.2 (5-19) 04/10/21 08:17 BUN 28 mg/dL (8-23) H 04/10/21 08:17 Creatinine 0.8 mg/dL (0.5-0.9) 04/10/21 08:17 GFR Calculation Not Reportable 04/10/21 08:17 Glucose 112 mg/dL (65-115) 04/10/21 08:17 Calculated Osmolality 304 mOsm/kg (285-295) H 04/10/21 08:17 Calcium 9.6 mg/dL (8.5-10.5) 04/10/21 08:17 Total Bilirubin 0.7 mg/dL (0.15-1.2) 04/10/21 08:17 AST 18 U/L (0-32) 04/10/21 08:17 ALT 12 U/L (0-33) 04/10/21 08:17 Alkaline Phosphatase 107 IU/L (35-105) H 04/10/21 08:17 Creatine Kinase 108 U/L (26-192) 04/10/21 08:17 Troponin T Baseline 19 ng/L (0-10) H 04/10/21 08:17 Troponin T 120 Minute 17.15 ng/L (0-10) H 04/10/21 10:24 Delta Troponin T -1.85 ABS# (0-10) L 04/10/21 10:24 Total Protein 7.3 g/dL (6.6-8.7) 04/10/21 08:17 Albumin 4.1 g/dL (3.5-5.2) 04/10/21 08:17 Globulin 3.2 g/dL (1.3-4.6) 04/10/21 08:17 Discharge Plan Discharge Patient Disposition: Home Clinical Impression: GERD (gastroesophageal reflux disease), Atypical chest pain Condition: Stable Prescriptions: Changed pantoprazole 40 mg tablet,delayed release (DR/EC) 40 mg PO BID Qty: 0 0RF No Action ascorbic acid (vitamin C) 1,000 mg tablet 500 mg PO DAILY 0RF One-A-Day Women's 50 Plus 400-20 mcg tablet 1 tab PO DAILY 0RF rivaroxaban 15 mg tablet 15 mg PO DAILY@04 Qty: 90 3RF metoprolol succinate 25 mg tablet extended release 24 hr 25 mg PO DAILY Qty: 90 3RF atorvastatin [Lipitor] 20 mg tablet 20 mg PO DAILY Qty: 90 3RF oxybutynin chloride 15 mg tablet extended release 24hr 15 mg PO DAILY@04 0RF furosemide 20 mg tablet 20 mg PO DAILY@04 0RF nitroglycerin 0.4 mg tablet, sublingual 0.4 mg sublingual Q5MIN PRN (Reason: Chest Pain) 0RF amlodipine 2.5 mg tablet 2.5 mg PO DAILY 0RF albuterol sulfate 90 mcg/actuation HFA aerosol inhaler 2 puff INHALATION Q6H PRN (Reason: Shortness Of Breath) 0RF guaifenesin 400 mg Tablet 400 mg PO QID PRN (Reason: Congestion) 0RF Discharge Orders: Discharge ED (Routine); Ordered 04/10/21 Ordered By: Arnaud Enriquez Referrals: Christi Paris PA-C [Primary Care Provider] - Discharge Diet: Usual diet Discharge Activity: Limit activity as instructed Patient Instructions: Opioid Safety Activity Restrictions/Additional Instructions: Avoid exertional activity. Case management will call to make arrangements for you to have a stress test on your heart. Coding Level of Care Code ED Cash Register Repairer for Chase Fwsussy Exam Comprehensive
[2021-04-10 09:25] VITALS: BP 115/62; PULSE 93; RESP 17; TEMP 36.7; O2SAT 95; BMI 23.0
[2021-04-10 09:35] VITALS: BP 115/62; PULSE 93; RESP 17; O2SAT 95
--- NOTE | 2021-04-10 09:36 | PC.NURSE ---
Patient placed on continual cardiac, bp, and spo2 monitoring.
[2021-04-10 09:41] LABS: Alanine Aminotransferase 12 U/L (0-33); Albumin Level 4.1 g/dL (3.5-5.2); Alkaline Phosphatase 107 IU/L (35-105); Anion Gap 18.2 (5-19); Aspartate Amino Transferase 18 U/L (0-32); Blood Urea Nitrogen 28 mg/dL (8-23); Calcium 9.6 mg/dL (8.5-10.5); Carbon Dioxide 23 mmol/L (22-29); Chloride 107 mmol/L (98-107); Creatine Phosphokinase 108 U/L (26-192); Globulin 3.2 g/dL (1.3-4.6); Glucose 112 mg/dL (65-115); Osmolality Calculated 304 mOsm/kg (285-295); Potassium 4.2 mmol/L (3.5-5.1); Sodium 144 mmol/L (136-145); Total Bilirubin 0.7 mg/dL (0.15-1.2); Total Protein 7.3 g/dL (6.6-8.7)
[2021-04-10 09:47] LABS: Troponin(5th) Baseline 19 ng/L (0-10)
[2021-04-10 10:08] VITALS: BP 114/62; PULSE 67; RESP 13; O2SAT 97
[2021-04-10 10:51] LABS: Troponin 5 2HR 17.15 ng/L (0-10)
[2021-04-10 10:52] LABS: Troponin 5 2HR Delta -1.85 ABS# (0-10)
--- NOTE | 2021-04-10 11:09 | ECG_ITS ---
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 Measurements Intervals [place] Rate: 68 P: TX: QRS: 66 QRSD: 76 T: 40 QT: 421 QTc: 449 Interpretive Statements ATRIAL FIBRILLATION ABNORMAL RHYTHM ECG Compared to ECG 04/10/2021 09:07:38 No significant changes Electronically Signed On 04-11-2021 12:20:00 GARNETT MACHINE OPERATOR by Luisa Thomas M.D. [id number]
[2021-04-10 12:24] VITALS: BP 148/93; PULSE 76; RESP 17; O2SAT 99
--- NOTE | 2021-04-13 06:23 | DCPLANNER ---
Addendum entered by Jennifer Roche 02/10/22 13:01: rehab manager received message from centralized scheduling about out patient testing: Looks like we've called a few time and he no showed and wont reschedule Original Note: rehab manager had message to schedule an outpatient stress test for patient. rehab manager faxed signed order to centralized scheduling, who will call patient with appointment information.
== END 2021-04-10 12:25 | disposition home or self-care (01) ==
PROVIDERS: Emergency Provider Family Medicine; PCP Physician Assistant
DX: R07.89 Other chest pain (principal); K21.9 Gastro-esophageal reflux disease without esophagitis; I10 Essential (primary) hypertension; E78.5 Hyperlipidemia, unspecified
CPT/HCPCS: 36415; 71045; 80053; 82550; 84484; 85025; 93005; 99283

== ENCOUNTER 2022-01-14 16:43 | Emergency (ER) | payer MEDICARE, SELFPAY ==
[2022-01-14 16:51] VITALS: BP 163/88; PULSE 63; RESP 20; TEMP 37.1; O2SAT 98; BMI 22.3
--- NOTE | 2022-01-14 16:56 | CTR_ITS ---
PROCEDURE INFORMATION: Exam: CT Head Without Contrast Exam date and time: 01/14/2022 5:51 PM Age: 86 years old Clinical indication: Weakness, extremity; Additional info: Weakness, speech change TECHNIQUE: Imaging protocol: Computed tomography of the head without contrast. Radiation optimization: All CT scans at this facility use at least one of these dose optimization techniques: automated exposure control; mA and/or kV adjustment per patient size (includes targeted exams where dose is matched to clinical indication); or iterative reconstruction. COMPARISON: CT head wo con* [id number] 01/15/2020 9:39 AM RADIATION DOSE METRICS: Total DLP (mGy-cm): 984.28 FINDINGS: Brain: Moderate cortical volume loss. 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 Mild hypodensities in supratentorial periventricular and subcortical white matter, consistent with microangiopathy. No intracranial hemorrhage. Cerebral ventricles: No ventriculomegaly. Paranasal sinuses: Mucosal thickening in the paranasal sinuses. No air-fluid level. Mastoid air cells: Visualized mastoid air cells are well aerated. Orbital cavities: Prior cataract surgery. Bones/joints: Unremarkable. No acute fracture. Soft tissues: Unremarkable. Vasculature: No hyperdense artery. CT/CT head wo con* [id number] IMPRESSION: 1. No acute intracranial abnormality.
--- NOTE | 2022-01-14 17:16 | ECG_ITS ---
[facility] Test Date: 2022-01-14 Pat Name: Almita Woodward Department: Room: Gender: Female Crop Duster: : 1935 Requested By: Arnaud Jiang Order Number: [id number] Allison MD: Jean Carlos Lobo M.D. Measurements Intervals [place] Rate: 64 P: 85 CA: 182 QRS: 79 QRSD: 81 T: 62 QT: 410 QTc: 424 Interpretive Statements SINUS RHYTHM Compared to ECG 04/10/2021 11:13:35 Atrial fibrillation no longer present Electronically Signed On 01-15-2022 16:39:33 THREAD WINDER by Jean Carlos Lobo M.D. [email or web address] Way/store/[id number]
--- NOTE | 2022-01-14 17:30 | ED_ITS ---
Documented by User: Arnaud Enriquez DO 01/18/22 07:11 HPI - Weakness General: Chief complaint: Weakness Stated complaint: Weakness Time Seen by Provider: 01/14/22 16:44 Source: patient Mode of arrival: EMS History of Present Illness: 86-year-old female presents emergency room complaining of increased weakness in the last 27 or 28 hours. She said yesterday around noon she began to feel weak she thought her speech was a little bit different. She complaining of dizziness difficulty with her balance that began suddenly and then. She states she went and laid down. MD Complaint: generalized weakness Onset (ago): hour(s) (26-28) Duration: constant Migration: none Severity: moderate Relieving factors: none Exacerbating factors: none Associated symptoms: Reports other (Dysarthria and loss of balance); Denies chest pain, chills, confusion, melena, decreased appetite, diaphoresis, dysuria, easy bruising, fever(s), headache(s), myalgias, nausea, rash, short of breath, syncope or vomiting Review of Systems Const: Reports: fatigue and malaise; Denies: fever(s), chills or diaphoresis ENMT: Denies: throat pain, ear or mastoid pain, nasal discharge or nasal congestion Card: Denies: chest pain, palpitations, irregular heart rhythm, edema or syncope Resp: Denies: dyspnea, productive cough or non-productive cough GI: Denies: nausea, vomiting or melena : Denies: dysuria, urinary frequency or urinary urgency Skin/Breast: Denies: rash or pruritus Neuro: Reports: lack of coordination, difficulty walking, frequent falls and Slurred speech present; Denies: headache(s) or confusion Trey/Lymph: Denies: easy bruising PFS ED PFSH: Medical History Atrial fibrillation GERD (gastroesophageal reflux disease) HTN (hypertension) Hx of transient cerebral ischemia Hyperlipidemia Urinary incontinence Family History Other CAD (coronary artery disease) Cancer Diabetes Denies family history of Anesthesia complication Bleeding disorder Social History Smoking and tobacco status: never smoked Alcohol intake: never Physical Exam Const: GENERAL APPEARANCE: cooperative and comfortable ORIENTATION/CONSCIOUSNESS: Yes awake, Yes oriented to person, Yes oriented to place and Yes oriented to time HENMT: COMMON NORMALS: normocephalic, atraumatic and hearing grossly normal bilaterally HEAD & SCALP: normocephalic and atraumatic Resp: COMMON NORMALS: normal respiratory effort, No retractions, No use of accessory muscles and clear to auscultation bilaterally AUSCULTATION: clear to auscultation bilaterally Cardio: COMMON NORMALS: regular rate, regular rhythm and No murmurs present (Cardio) RATE: regular rate RHYTHM: regular rhythm GI: COMMON NORMALS: Soft to palpation and No hepatosplenomegaly present AUSCULTATION: Yes normoactive bowel sounds PALPATION: Yes Soft to palpation, No Tenderness to palpation present (GI), No Guarding due to palpation present (GI) and Yes No hepatosplenomegaly present Extremity: COMMON NORMALS: normal to inspection, capillary refill normal, no clubbing, cyanosis or edema, no calf tenderness and no pedal edema Neuro: SENSORIUM/ORIENTATION: Yes oriented to person, Yes oriented to place and Yes oriented to time Skin: COMMON NORMALS: no rashes or lesions noted GENERAL SKIN EXAM: no rashes or lesions noted Course Vital Signs: Vital signs: Vital Signs Temperature 98.7 F 01/14/22 18:30 Pulse Rate 70 01/14/22 19:20 Respiratory Rate 14 01/14/22 19:20 Blood Pressure 146/77 01/14/22 19:20 Pulse Oximetry 98 01/14/22 19:20 Oxygen Delivery Me thod 01/14/22 18:30 MDM - Weakness Medical Decision Making Labs pending. Care signed out to Dr. Saul at change of shift. See final notes for diagnosis and disposition. Patient presents here with generalized weakness likely from urinary tract infection she is able to ambulate here she is well-appearing here she is stable for discharge on oral antibiotics. Medical Records I reviewed the patient's medical records. Lab Data I reviewed the patient's lab results. 01/14/22 17:40 01/14/22 19:[address] 01/14/22 16:56 IMPRESSION: 1. No acute intracranial abnormality. Laboratory Results WBC 5.9 10^3/uL (4.0-10.0) 01/14/22 17:40 RBC 4.25 10^6/uL (4.1-5.3) 01/14/22 17:40 Hgb 13.6 g/dL (11.5-15.3) 01/14/22 17:40 Hct 40.2 % (37.0-47.0) 01/14/22 17:40 MCV 94.6 fl (81-99) 01/14/22 17:40 MCH 32.0 pg (28.0-34.0) 01/14/22 17:40 MCHC 33.8 g/dL (30.0-36.0) 01/14/22 17:40 RDW 14.1 % (12.1-15.1) 01/14/22 17:40 Plt Count 299 10^3/cmm (130-400) 01/14/22 17:40 MPV 12.0 fL (7.4-10.4) H 01/14/22 17:40 Neut % (Auto) 58.6 % 01/14/22 17:40 Lymph % (Auto) 29.2 % 01/14/22 17:40 Hodgeman % (Auto) 8.1 % 01/14/22 17:40 Eos % (Auto) 1.9 % 01/14/22 17:40 Baso % (Auto) 0.3 % 01/14/22 17:40 Neut # (Auto) 3.46 10^3/uL (1.8-7.7) 01/14/22 17:40 Lymph # (Auto) 1.7 10^3/uL (0.8-4.8) 01/14/22 17:40 Hodgeman # (Auto) 0.5 10^3/uL (0.2-0.9) 01/14/22 17:40 Eos # (Auto) 0.1 10^3/uL (0.0-0.8) 01/14/22 17:40 Baso # (Auto) 0.0 10^3/uL (0.0-0.1) 01/14/22 17:40 Nucleated RBC % (auto) 0 % 01/14/22 17:40 Nucleated RBCs # 0.0 /100WBC 01/14/22 17:40 Sodium 143 mmol/L (136-145) 01/14/22 19:15 Potassium 4.3 mmol/L (3.5-5.1) 01/14/22 19:15 Chloride 105 mmol/L (98-107) 01/14/22 19:15 Carbon Dioxide 29 mmol/L (22-29) 01/14/22 19:15 Anion Gap 13.3 (5-19) 01/14/22 19:15 BUN 27 mg/dL (8-23) H 01/14/22 19:15 Creatinine 0.8 mg/dL (0.5-0.9) 01/14/22 19:15 GFR Calculation Not Reportable 01/14/22 19:15 Glucose 100 mg/dL (65-115) 01/14/22 19:15 Calculated Osmolality 301 mOsm/kg (285-295) H 01/14/22 19:15 Calcium 9.2 mg/dL (8.5-10.5) 01/14/22 19:15 Total Bilirubin 0.3 mg/dL (0.15-1.2) 01/14/22 19:15 AST 17 U/L (0-32) 01/14/22 19:15 ALT 14 U/L (0-33) 01/14/22 19:15 Alkaline Phosphatase 106 U/L (35-105) H 01/14/22 19:15 Total Protein 7.3 g/dL (6.6-8.7) 01/14/22 19:15 Albumin 3.5 g/dL (3.5-5.2) 01/14/22 19:15 Globulin 3.8 g/dL (1.3-4.6) 01/14/22 19:15 Urine Color Yellow (Yellow) 01/14/22 17:36 Urine Appearance Hazy (CLEAR) A 01/14/22 17:36 Urine pH 5 (5-7) 01/14/22 17:36 Ur Specific [place] 1.010 (1.005-1.030) 01/14/22 17:36 Urine Protein Neg (Negative) 01/14/22 17:36 Urine Glucose (UA) Norm (Normal) 01/14/22 17:36 Urine Ketones Negative (Negative) 01/14/22 17:36 Urine Blood Neg (Negative) 01/14/22 17:36 Urine Nitrate Negative (Negative) 01/14/22 17:36 Urine Bilirubin Neg (Negative) 01/14/22 17:36 Urine Urobilinogen Neg mg/dL (Negative) 01/14/22 17:36 Ur Leukocyte Esterase 2+ (Negative) H 01/14/22 17:36 Urine RBC 0-4 /hpf (0-2) H 01/14/22 17:36 Urine WBC Too numerous to cnt /hpf (0-5) H 01/14/22 17:36 Ur Squamous Epith Cells 0-4 /hpf (0-5) H 01/14/22 17:36 Amorphous Sediment Not Reportable 01/14/22 17:36 Urine Bacteria 4+ /hpf (NONE) H 01/14/22 17:36 Discharge Plan Discharge Patient Disposition: Home Clinical Impression: Acute cystitis Condition: Stable Prescriptions: New cephalexin 500 mg capsule 500 mg PO TID 7 Days Qty: 21 0RF No Action ascorbic acid (vitamin C) 1,000 mg tablet 500 mg PO DAILY One-A-Day Women's 50 Plus 400-20 mcg tablet 1 tab PO DAILY metoprolol succinate 25 mg tablet extended release 24 hr 25 mg PO DAILY Qty: 90 3RF atorvastatin [Lipitor] 20 mg tablet 20 mg PO DAILY Qty: 90 3RF rivaroxaban 15 mg tablet 15 mg PO DAILY@04 Qty: 90 0RF Rx Instructions: Must make an appointment for further refills oxybutynin chloride 15 mg tablet extended release 24hr 15 mg PO DAILY@04 furosemide 20 mg tablet 20 mg PO DAILY@04 nitroglycerin 0.4 mg tablet, sublingual 0.4 mg sublingual Q5MIN PRN (Reason: Chest Pain) amlodipine 2.5 mg tablet 2.5 mg PO DAILY albuterol sulfate 90 mcg/actuation HFA aerosol inhaler 2 puff INHALATION Q6H PRN (Reason: Shortness Of Breath) guaifenesin 400 mg Tablet 400 mg PO QID PRN (Reason: Congestion) pantoprazole 40 mg tablet,delayed release (DR/EC) 40 mg PO BID Qty: 0 0RF Discharge Orders: Discharge ED (Routine); Ordered 01/14/22 Ordered By: Margo Saul Referrals: Christi Paris PA-C [Primary Care Provider] - Discharge Diet: Advance as tolerated Discharge Activity: Resume usual activity Patient Instructions: Urinary Tract Infection in Women (ED) Coding Level of Care Code ED Real Estate Firm Manager for Chg Fwd Exam Detailed NIH stroke score NIHSS Level Of Consciousness - 1a: 0 Level Of Consciousness Questions - 1b: Both Correct Level Of Consciousness Commands - 1c: Both Correct Best Gaze - 2: Normal Visual Giraldo - 3: No Visual Loss Facial Palsy - 4: Normal Motor Arm Right - 5: No Drift Motor Arm Left - 5: No Drift Motor Leg Right - 6: No Drift Motor Leg Left - 6: No Drift Limb Ataxia - 7: Absent Sensory - 8: Normal Best Language - 9: No Aphasia Dysarthia - 10: Normal Extinction And Inattention - 11: 0 Score Total Score: 0 Documented by User: Margo Saul MD 01/14/22 20:19 HPI - Weakness General: Chief complaint: Weakness Stated complaint: Weakness Time Seen by Provider: 01/14/22 16:44 [facility] ED PFSH: Medical History Atrial fibrillation GERD (gastroesophageal reflux disease) HTN (hypertension) Hx of transient cerebral ischemia Hyperlipidemia Urinary incontinence Family History Other CAD (coronary artery disease) Cancer Diabetes Denies family history of Anesthesia complication Bleeding disorder Social History Smoking and tobacco status: never smoked Alcohol intake: never Course Vital Signs: Vital signs: Vital Signs Temperature 98.7 F 01/14/22 18:30 Pulse Rate 70 01/14/22 19:20 Respiratory Rate 14 01/14/22 19:20 Blood Pressure 146/77 01/14/22 19:20 Pulse Oximetry 98 01/14/22 19:20 Oxygen Delivery Me thod 01/14/22 18:30 MDM - Weakness Medical Decision Making Patient presents here with generalized weakness likely from urinary tract infection she is able to ambulate here she is well-appearing here she is stable for discharge on oral antibiotics. Lab Data 01/14/22 17:40 01/14/22 19:[address] 01/14/22 16:56 IMPRESSION: 1. No acute intracranial abnormality. Laboratory Results WBC 5.9 10^3/uL (4.0-10.0) 01/14/22 17:40 RBC 4.25 10^6/uL (4.1-5.3) 01/14/22 17:40 Hgb 13.6 g/dL (11.5-15.3) 01/14/22 17:40 Hct 40.2 % (37.0-47.0) 01/14/22 17:40 MCV 94.6 fl (81-99) 01/14/22 17:40 MCH 32.0 pg (28.0-34.0) 01/14/22 17:40 MCHC 33.8 g/dL (30.0-36.0) 01/14/22 17:40 RDW 14.1 % (12.1-15.1) 01/14/22 17:40 Plt Count 299 10^3/cmm (130-400) 01/14/22 17:40 MPV 12.0 fL (7.4-10.4) H 01/14/22 17:40 Neut % (Auto) 58.6 % 01/14/22 17:40 Lymph % (Auto) 29.2 % 01/14/22 17:40 Hodgeman % (Auto) 8.1 % 01/14/22 17:40 Eos % (Auto) 1.9 % 01/14/22 17:40 Baso % (Auto) 0.3 % 01/14/22 17:40 Neut # (Auto) 3.46 10^3/uL (1.8-7.7) 01/14/22 17:40 Lymph # (Auto) 1.7 10^3/uL (0.8-4.8) 01/14/22 17:40 Hod[place]eman # (Auto) 0.5 10^3/uL (0.2-0.9) 01/14/22 17:40 Eos # (Auto) 0.1 10^3/uL (0.0-0.8) 01/14/22 17:40 Baso # (Auto) 0.0 10^3/uL (0.0-0.1) 01/14/22 17:40 Nucleated RBC % (auto) 0 % 01/14/22 17:40 Nucleated RBCs # 0.0 /100WBC 01/14/22 17:40 Sodium 143 mmol/L (136-145) 01/14/22 19:15 Potassium 4.3 mmol/L (3.5-5.1) 01/14/22 19:15 Chloride 105 mmol/L (98-107) 01/14/22 19:15 Carbon Dioxide 29 mmol/L (22-29) 01/14/22 19:15 Anion Gap 13.3 (5-19) 01/14/22 19:15 BUN 27 mg/dL (8-23) H 01/14/22 19:15 Creatinine 0.8 mg/dL (0.5-0.9) 01/14/22 19:15 GFR Calculation Not Reportable 01/14/22 19:15 Glucose 100 mg/dL (65-115) 01/14/22 19:15 Calculated Osmolality 301 mOsm/kg (285-295) H 01/14/22 19:15 Calcium 9.2 mg/dL (8.5-10.5) 01/14/22 19:15 Total Bilirubin 0.3 mg/dL (0.15-1.2) 01/14/22 19:15 AST 17 U/L (0-32) 01/14/22 19:15 ALT 14 U/L (0-33) 01/14/22 19:15 Alkaline Phosphatase 106 U/L (35-105) H 01/14/22 19:15 Total Protein 7.3 g/dL (6.6-8.7) 01/14/22 19:15 Albumin 3.5 g/dL (3.5-5.2) 01/14/22 19:15 Globulin 3.8 g/dL (1.3-4.6) 01/14/22 19:15 Urine Color Yellow (Yellow) 01/14/22 17:36 Urine Appearance Hazy (CLEAR) A 01/14/22 17:36 Urine pH 5 (5-7) 01/14/22 17:36 Ur Specific [place] 1.010 (1.005-1.030) 01/14/22 17:36 Urine Protein Neg (Negative) 01/14/22 17:36 Urine Glucose (UA) Norm (Normal) 01/14/22 17:36 Urine Ketones Negative (Negative) 01/14/22 17:36 Urine Blood Neg (Negative) 01/14/22 17:36 Urine Nitrate Negative (Negative) 01/14/22 17:36 Urine Bilirubin Neg (Negative) 01/14/22 17:36 Urine Urobilinogen Neg mg/dL (Negative) 01/14/22 17:36 Ur Leukocyte Esterase 2+ (Negative) H 01/14/22 17:36 Urine RBC 0-4 /hpf (0-2) H 01/14/22 17:36 Urine WBC Too numerous to cnt /hpf (0-5) H 01/14/22 17:36 Ur Squamous Epith Cells 0-4 /hpf (0-5) H 01/14/22 17:36 Amorphous Sediment Not Reportable 01/14/22 17:36 Urine Bacteria 4+ /hpf (NONE) H 01/14/22 17:36 Discharge Plan Discharge Patient Disposition: Home Clinical Impression: Acute cystitis Condition: Stable Prescriptions: New cephalexin 500 mg capsule 500 mg PO TID 7 Days Qty: 21 0RF No Action ascorbic acid (vitamin C) 1,000 mg tablet 500 mg PO DAILY One-A-Day Women's 50 Plus 400-20 mcg tablet 1 tab PO DAILY metoprolol succinate 25 mg tablet extended release 24 hr 25 mg PO DAILY Qty: 90 3RF atorvastatin [Lipitor] 20 mg tablet 20 mg PO DAILY Qty: 90 3RF rivaroxaban 15 mg tablet 15 mg PO DAILY@04 Qty: 90 0RF Rx Instructions: Must make an appointment for further refills oxybutynin chloride 15 mg tablet extended release 24hr 15 mg PO DAILY@04 furosemide 20 mg tablet 20 mg PO DAILY@04 nitroglycerin 0.4 mg tablet, sublingual 0.4 mg sublingual Q5MIN PRN (Reason: Chest Pain) amlodipine 2.5 mg tablet 2.5 mg PO DAILY albuterol sulfate 90 mcg/actuation HFA aerosol inhaler 2 puff INHALATION Q6H PRN (Reason: Shortness Of Breath) guaifenesin 400 mg Tablet 400 mg PO QID PRN (Reason: Congestion) pantoprazole 40 mg tablet,delayed release (DR/EC) 40 mg PO BID Qty: 0 0RF Discharge Orders: Discharge ED (Routine); Ordered 01/14/22 Ordered By: Margo Saul Referrals: Christi Paris PA-C [Primary Care Provider] - Discharge Diet: Advance as tolerated Discharge Activity: Resume usual activity Patient Instructions: Urinary Tract Infection in Women (ED) Coding Level of Care Code ED Real Estate Firm Manager for Rahg Fwd Exam Detailed NIH stroke score Score Total Score: 0
[2022-01-14 18:03] LABS: Basophils % 0.3 %; Eosinophils # 0.1 10^3/uL (0.0-0.8); Eosinophils % 1.9 %; Hematocrit 40.2 % (37.0-47.0); Hemoglobin 13.6 g/dL (11.5-15.3); Lymphocytes # 1.7 10^3/uL (0.8-4.8); Lymphocytes % 29.2 %; Mean Corpuscular HGB Conc 33.8 g/dL (30.0-36.0); Mean Corpuscular Volume 94.6 fl (81-99); Monocytes # 0.5 10^3/uL (0.2-0.9); Monocytes % 8.1 %; Neutrophils # 3.46 10^3/uL (1.8-7.7); Neutrophils % 58.6 %; Nucleated Red Blood Cells % 0 %; Platelet Count 299 10^3/cmm (130-400); Red Blood Count 4.25 10^6/uL (4.1-5.3); Red Cell Distribution Width 14.1 % (12.1-15.1); White Blood Count 5.9 10^3/uL (4.0-10.0)
[2022-01-14 18:30] VITALS: BP 163/88; PULSE 63; RESP 20; TEMP 37.1; O2SAT 98
[2022-01-14 18:59] LABS: Add Urine Microscopic? YES; Bilirubin Urine Neg (Negative); Blood Urine Neg (Negative); Glucose Urine UA Norm (Normal); Ketones Urine Negative (Negative); Leukocyte Esterase Urine 2+ (Negative); Nitrate Urine Negative (Negative); Protein Urine Neg (Negative); Urine Appearance Hazy (CLEAR); Urine Color Yellow (Yellow); Urobilinogen Urine Neg (Negative); pH Urine 5 (5-7)
[2022-01-14 19:00] LABS: Add Urine Culture? Yes; Bacteria Urine 4+ /hpf; RBC Urine 0-4 /hpf (0-2); Squamous Epithelial Cell Urine 0-4 /hpf (0-5); WBC Urine TOO NUMEROUS TO CNT /hpf (0-5)
[2022-01-14 19:20] VITALS: BP 146/77; PULSE 70; RESP 14; O2SAT 98
[2022-01-14 19:43] LABS: Alanine Aminotransferase 14 U/L (0-33); Albumin Level 3.5 g/dL (3.5-5.2); Alkaline Phosphatase 106 U/L (35-105); Anion Gap 13.3 (5-19); Aspartate Amino Transferase 17 U/L (0-32); Blood Urea Nitrogen 27 mg/dL (8-23); Calcium 9.2 mg/dL (8.5-10.5); Carbon Dioxide 29 mmol/L (22-29); Chloride 105 mmol/L (98-107); Globulin 3.8 g/dL (1.3-4.6); Glucose 100 mg/dL (65-115); Osmolality Calculated 301 mOsm/kg (285-295); Potassium 4.3 mmol/L (3.5-5.1); Sodium 143 mmol/L (136-145); Total Bilirubin 0.3 mg/dL (0.15-1.2); Total Protein 7.3 g/dL (6.6-8.7)
[2022-01-14] MEDS: cefTRIAXone 1,000 MG in lidocaine 1% 2.1 ML 1 MG IM (20:16)
== END 2022-01-14 20:25 | disposition home or self-care (01) ==
PROVIDERS: Family Medicine; Emergency Provider Emergency Medicine; PCP Physician Assistant
DX: N30.00 Acute cystitis without hematuria (principal); I10 Essential (primary) hypertension; E78.5 Hyperlipidemia, unspecified
CPT/HCPCS: 70450; 80053; 81001; 85025; 87077; 87086; 87186; 93005; 96372; 99285; J0696

== ENCOUNTER 2022-06-14 10:54 | Emergency (ER) | payer MEDICARE, MEDICAID, SELFPAY ==
[2022-06-14 10:59] VITALS: BP 162/66; PULSE 66; RESP 18; TEMP 36.6; O2SAT 100
[2022-06-14 12:02] LABS: Basophils % 0.7 %; Eosinophils # 0.1 10^3/uL (0.0-0.8); Eosinophils % 2.6 %; Hematocrit 42.8 % (37.0-47.0); Hemoglobin 13.5 g/dL (11.5-15.3); Lymphocytes # 1.2 10^3/uL (0.8-4.8); Lymphocytes % 26.4 %; Mean Corpuscular HGB Conc 31.5 g/dL (30.0-36.0); Mean Corpuscular Hemoglobin 30.2 pg (28.0-34.0); Mean Corpuscular Volume 95.7 fl (81-99); Monocytes # 0.5 10^3/uL (0.2-0.9); Monocytes % 9.9 %; Neutrophils # 2.72 10^3/uL (1.8-7.7); Nucleated Red Blood Cells % 0 %; Platelet Count 163 10^3/cmm (130-400); Red Blood Count 4.47 10^6/uL (4.1-5.3); Red Cell Distribution Width 13.1 % (12.1-15.1); White Blood Count 4.5 10^3/uL (4.0-10.0)
[2022-06-14 12:21] LABS: INR 0.92 (0.8-1.2); Partial Thromboplastin Time 25.6 SECONDS (23.9-36.7)
[2022-06-14 12:28] LABS: Alanine Aminotransferase 12 U/L (0-33); Albumin Level 3.8 g/dL (3.5-5.2); Alkaline Phosphatase 108 U/L (35-105); Anion Gap 15.9 (5-19); Aspartate Amino Transferase 18 U/L (0-32); Blood Urea Nitrogen 23 mg/dL (8-23); Calcium 8.6 mg/dL (8.5-10.5); Carbon Dioxide 25 mmol/L (22-29); Chloride 105 mmol/L (98-107); Globulin 3.4 g/dL (1.3-4.6); Glucose 79 mg/dL (65-115); Lipase 37 U/L (13-60); Osmolality Calculated 297 mOsm/kg (285-295); Potassium 3.9 mmol/L (3.5-5.1); Sodium 142 mmol/L (136-145); Total Bilirubin 0.3 mg/dL (0.15-1.2); Total Protein 7.2 g/dL (6.6-8.7)
--- NOTE | 2022-06-14 14:12 | W.ED.GIBLEED ---
HPI - GI Bleed General: Chief complaint: GI Bleed Stated complaint: rectal bleeding Time Seen by Provider: 06/14/22 13:53 Source: patient Mode of arrival: ambulatory History of Present Illness: 79-year-old female presents emergency room complaining of intermittent rectal bleeding with bowel movements streaking in the stool. She has a history of previous colon cancer she was treated for several years ago. She states she had loose stools recently she denies any fever sweats or chills no lightheadedness dizziness palpitations. No vomiting no diarrhea. She states she also had some blood in her urine she denies dysuria urgency or frequency MD complaint: blood streaked stool Onset (ago): day(s) (3) Severity: mild Exacerbating factors: none Context: other (: [place] 2 years ago) Associated symptoms: Denies abdominal pain, chills, easy bruising, epistaxis, fever(s), headache(s), malaise, nausea, other bleeding, poor appetite, rash, syncope, vomiting or weakness Review of Systems Const: Denies: fever(s), chills or malaise ENMT: Denies: epistaxis Card: Denies: chest pain, palpitations, irregular heart rhythm, edema or syncope Resp: Denies: dyspnea, productive cough or non-productive cough GI: Denies: abdominal pain, nausea or vomiting : Denies: flank pain, difficulty voiding, dysuria, urinary frequency or urinary urgency Musc: Denies: neck pain, back pain or extremity pain Skin/Breast: Denies: rash Neuro: Denies: headache(s) Trey/Lymph: Denies: easy bruising PFSH ED PFSH: Medical History Atrial fibrillation GERD (gastroesophageal reflux disease) HTN (hypertension) Hx of transient cerebral ischemia Hyperlipidemia Urinary incontinence Family History Other CAD (coronary artery disease) Cancer Diabetes Denies family history of Anesthesia complication Bleeding disorder Social History Smoking and tobacco status: never smoked Alcohol intake: never Substance/Drug Use: never Physical Exam Const: GENERAL APPEARANCE: cooperative and comfortable ORIENTATION/CONSCIOUSNESS: Yes awake HENMT: COMMON NORMALS: normocephalic, atraumatic and hearing grossly normal bilaterally HEAD & SCALP: normocephalic and atraumatic Resp: COMMON NORMALS: normal respiratory effort, No retractions, No use of accessory muscles and clear to auscultation bilaterally AUSCULTATION: clear to auscultation bilaterally Cardio: COMMON NORMALS: regular rate, regular rhythm and No murmurs present (Cardio) RATE: regular rate RHYTHM: regular rhythm GI: COMMON NORMALS: Soft to palpation and No hepatosplenomegaly present AUSCULTATION: Yes normoactive bowel sounds PALPATION: Yes Soft to palpation, No Tenderness to palpation present (GI), No Guarding due to palpation present (GI) and Yes No hepatosplenomegaly present OTHER: Examination of the rectum is a lot of perirectal excoriation and some moderately inflamed hemorrhoids none that appears thrombosed. No active rectal bleeding. Extremity: COMMON NORMALS: normal to inspection, capillary refill normal, no clubbing, cyanosis or edema, no calf tenderness and no pedal edema Skin: COMMON NORMALS: no rashes or lesions noted GENERAL SKIN EXAM: no rashes or lesions noted Course Vital Signs: Vital signs: Vital Signs Temperature 97.8 F 06/14/22 10:59 Pulse Rate 66 06/14/22 10:59 Respiratory Rate 18 06/14/22 10:59 Blood Pressure 162/66 06/14/22 10:59 Pulse Oximetry 100 06/14/22 10:59 Oxygen Delivery Me thod Room Air 06/14/22 10:59 MDM - GI Bleed Medical Decision Making Hemoglobin is stable. We will discharge patient home to her primary care doctor. Needs follow-up with her primary care doctor to recheck her hemoglobin within the next 2 days also use Desitin cream topically for the excoriation perirectal and Anusol HC suppositories. Because of her history of previous colon cancer she needs to be reevaluated. Stressed her the importance of seeing her doctor within the next couple of days Medical Records I reviewed the patient's medical records. Lab Data I reviewed the patient's lab results. 06/14/22 11:52 06/14/22 11:52 Laboratory Results WBC 4.5 10^3/uL (4.0-10.0) 06/14/22 11:52 RBC 4.47 10^6/uL (4.1-5.3) 06/14/22 11:52 Hgb 13.5 g/dL (11.5-15.3) 06/14/22 11:52 Hct 42.8 % (37.0-47.0) 06/14/22 11:52 MCV 95.7 fl (81-99) 06/14/22 11:52 MCH 30.2 pg (28.0-34.0) 06/14/22 11:52 MCHC 31.5 g/dL (30.0-36.0) 06/14/22 11:52 RDW 13.1 % (12.1-15.1) 06/14/22 11:52 Plt Count 163 10^3/cmm (130-400) 06/14/22 11:52 MPV 10.0 fL (7.4-10.4) 06/14/22 11:52 Neut % (Auto) 60.0 % 06/14/22 11:52 Lymph % (Auto) 26.4 % 06/14/22 11:52 Posey % (Auto) 9.9 % 06/14/22 11:52 Eos % (Auto) 2.6 % 06/14/22 11:52 Baso % (Auto) 0.7 % 06/14/22 11:52 Neut # (Auto) 2.72 10^3/uL (1.8-7.7) 06/14/22 11:52 Lymph # (Auto) 1.2 10^3/uL (0.8-4.8) 06/14/22 11:52 Posey # (Auto) 0.5 10^3/uL (0.2-0.9) 06/14/22 11:52 Eos # (Auto) 0.1 10^3/uL (0.0-0.8) 06/14/22 11:52 Baso # (Auto) 0.0 10^3/uL (0.0-0.1) 06/14/22 11:52 Nucleated RBC % (auto) 0 % 06/14/22 11:52 Nucleated RBCs # 0.0 /100WBC 06/14/22 11:52 PT 12.70 SECONDS (12.1-14.9) 06/14/22 11:52 INR 0.92 (0.8-1.2) 06/14/22 11:52 APTT 25.6 SECONDS (23.9-36.7) 06/14/22 11:52 Sodium 142 mmol/L (136-145) 06/14/22 11:52 Potassium 3.9 mmol/L (3.5-5.1) 06/14/22 11:52 Chloride 105 mmol/L (98-107) 06/14/22 11:52 Carbon Dioxide 25 mmol/L (22-29) 06/14/22 11:52 Anion Gap 15.9 (5-19) 06/14/22 11:52 BUN 23 mg/dL (8-23) 06/14/22 11:52 Creatinine 0.7 mg/dL (0.5-0.9) 06/14/22 11:52 GFR Calculation Not Reportable 06/14/22 11:52 Glucose 79 mg/dL (65-115) 06/14/22 11:52 Calculated Osmolality 297 mOsm/kg (285-295) H 06/14/22 11:52 Calcium 8.6 mg/dL (8.5-10.5) 06/14/22 11:52 Total Bilirubin 0.3 mg/dL (0.15-1.2) 06/14/22 11:52 AST 18 U/L (0-32) 06/14/22 11:52 ALT 12 U/L (0-33) 06/14/22 11:52 Alkaline Phosphatase 108 U/L (35-105) H 06/14/22 11:52 Total Protein 7.2 g/dL (6.6-8.7) 06/14/22 11:52 Albumin 3.8 g/dL (3.5-5.2) 06/14/22 11:52 Globulin 3.4 g/dL (1.3-4.6) 06/14/22 11:52 Lipase 37 U/L (13-60) 06/14/22 11:52 Urine Color Yellow (Yellow) 06/14/22 14:53 Urine Appearance Clear (CLEAR) 06/14/22 14:53 Urine pH 6 (5-7) 06/14/22 14:53 Ur Specific [place] 1.010 (1.005-1.030) 06/14/22 14:53 Urine Protein Neg (Negative) 06/14/22 14:53 Urine Glucose (UA) Norm (Normal) 06/14/22 14:53 Urine Ketones Negative (Negative) 06/14/22 14:53 Urine Blood Neg (Negative) 06/14/22 14:53 Urine Nitrate Negative (Negative) 06/14/22 14:53 Urine Bilirubin Neg (Negative) 06/14/22 14:53 Urine Urobilinogen Neg mg/dL (Negative) 06/14/22 14:53 Ur Leukocyte Esterase Negative (Negative) 06/14/22 14:53 Discharge Plan Discharge Patient Disposition: Home Clinical Impression: Hemorrhoids, History of colon cancer Condition: Stable Prescriptions: New Anusol-HC 25 mg suppository 25 mg AL TID 21 Days Qty: 100 0RF No Action ascorbic acid (vitamin C) 1,000 mg tablet 500 mg PO DAILY One-A-Day Women's 50 Plus 400-20 mcg tablet 1 tab PO DAILY metoprolol succinate 25 mg tablet extended release 24 hr 25 mg PO DAILY Qty: 90 3RF atorvastatin [Lipitor] 20 mg tablet 20 mg PO DAILY Qty: 90 3RF rivaroxaban 15 mg tablet 15 mg PO DAILY@04 Qty: 90 0RF Rx Instructions: Must make an appointment for further refills oxybutynin chloride 15 mg tablet extended release 24hr 15 mg PO DAILY@04 furosemide 20 mg tablet 20 mg PO DAILY@04 nitroglycerin 0.4 mg tablet, sublingual 0.4 mg sublingual Q5MIN PRN (Reason: Chest Pain) amlodipine 2.5 mg tablet 2.5 mg PO DAILY albuterol sulfate 90 mcg/actuation HFA aerosol inhaler 2 puff INHALATION Q6H PRN (Reason: Shortness Of Breath) guaifenesin 400 mg Tablet 400 mg PO QID PRN (Reason: Congestion) pantoprazole 40 mg tablet,delayed release (DR/EC) 40 mg PO BID Qty: 0 0RF Discharge Orders: Discharge ED (Routine); Ordered 06/14/22 Ordered By: Arnaud Enriquez Referrals: Christi Paris PA-C [Primary Care Provider] - Discharge Diet: Usual diet Discharge Activity: Resume usual activity Patient Instructions: Opioid Safety, Pain Management Activity Restrictions/Additional Instructions: You are seen today for rectal bleeding. Based on your exam I expect that it is largely coming from hemorrhoids and irritation around the rectal area. Use the Anusol suppository creams along with Desitin cream in the perirectal area. Follow-up with your primary care doctor in the next 1 to 2 days for repeat examination and lab work. Coding Level of Care Code ED Manager [employer] Planning for Chase Maier
[2022-06-14 14:58] LABS: Add Urine Microscopic? NO; Charge for UA Resulting for Rev
[2022-06-14 15:24] LABS: Bilirubin Urine Neg (Negative); Blood Urine Neg (Negative); Glucose Urine UA Norm (Normal); Ketones Urine Negative (Negative); Leukocyte Esterase Urine Negative (Negative); Nitrate Urine Negative (Negative); Protein Urine Neg (Negative); Urine Appearance Clear (CLEAR); Urine Color Yellow (Yellow); Urobilinogen Urine Neg (Negative); pH Urine 6 (5-7)
== END 2022-06-14 15:06 | disposition home or self-care (01) ==
PROVIDERS: Emergency Provider Family Medicine; PCP Physician Assistant
DX: K64.9 Unspecified hemorrhoids (principal); Z85.038 Personal history of other malignant neoplasm of large intestine; I10 Essential (primary) hypertension; E78.5 Hyperlipidemia, unspecified
CPT/HCPCS: 36415; 80053; 81003; 83690; 85025; 85610; 85730; 99283

== ENCOUNTER 2022-10-26 12:48 | Emergency (ER) | payer MEDICARE, SELFPAY ==
[2022-10-26 12:48] VITALS: BP 187/104; RESP 17; TEMP 36.8; BMI 27.4
[2022-10-26 12:59] VITALS: PULSE 69; O2SAT 94
--- NOTE | 2022-10-26 13:05 | W.ED.EXTPRO ---
Documented by User: anita Smith 10/26/22 13:15 HPI - Extremity Problem General: Chief complaint: Extremity Problem,Nontraumatic Stated complaint: right hand injury Time Seen by Provider: 10/26/22 12:50 Source: patient Mode of arrival: ambulatory Limitations: no limitations History of Present Illness: Patient is an 87 year old female who presents to the ED with right wrist pain. States that she was helping her daughter move some boxes 2 days ago and it became sore after. Reports that she didn't cause trauma to the wrist, just overused it. MD Complaint: extremity pain Onset (ago): day(s) (2) Location: right Severity scale (1-10): 3 Relieving factors: rest Exacerbating factors: range of motion Associated symptoms: Deny chest pain, fever(s) or rash Review of Systems Const: Denies: fever(s), chills or body aches Eyes: Denies: change in vision or blurry vision ENMT: Denies: throat pain Card: Denies: chest pain or palpitations Resp: Denies: dyspnea or productive cough GI: Denies: abdominal pain or nausea : Denies: flank pain or difficulty voiding Musc: Reports: extremity pain (right wrist); Denies: neck pain or back pain Skin/Breast: Denies: rash or pruritus Neuro: Denies: headache(s) or numbness in extremities Psych: Denies: anxiety or depression PFSH ED PFSH: Medical History Atrial fibrillation GERD (gastroesophageal reflux disease) HTN (hypertension) Hx of transient cerebral ischemia Hyperlipidemia Urinary incontinence Family History Other CAD (coronary artery disease) Cancer Diabetes Denies family history of Anesthesia complication Bleeding disorder Social History Smoking and tobacco status: never smoked Alcohol intake: never Substance/Drug Use: never Physical Exam Const: COMMON NORMALS: no acute distress and patient oriented x3 GENERAL APPEARANCE: cooperative ORIENTATION/CONSCIOUSNESS: Yes awake HENMT: COMMON NORMALS: normocephalic HEAD & SCALP: normocephalic Eye: COMMON NORMALS: Equal, round and reactive pupils present PUPIL: Yes Equal, round and reactive pupils present Neck/C-Spine: COMMON NORMALS: full ROM Chest: CHEST: Yes Symmetrical chest wall rise Resp: COMMON NORMALS: normal respiratory effort Extremity: RIGHT UPPER EXTREMITY: Yes wrist (pain ) Right wrist: Yes palpation Neuro: COMMON NORMALS: patient oriented x3 Skin: COMMON NORMALS: no rashes or lesions noted GENERAL SKIN EXAM: no rashes or lesions noted Course Vital Signs: Vital signs: Vital Signs Temperature 98.2 F 10/26/22 12:48 Pulse Rate 69 10/26/22 12:59 Respiratory Rate 17 10/26/22 12:48 Blood Pressure 187/104 10/26/22 12:48 Pulse Oximetry 94 10/26/22 12:59 Oxygen Delivery Me thod Room Air 10/26/22 12:48 Discharge Plan Discharge Patient Disposition: Home Clinical Impression: Osteoarthritis of right wrist Condition: Stable Prescriptions: No Action ascorbic acid (vitamin C) 1,000 mg tablet 500 mg PO DAILY One-A-Day Women's 50 Plus 400-20 mcg tablet 1 tab PO DAILY metoprolol succinate 25 mg tablet extended release 24 hr 25 mg PO DAILY Qty: 90 3RF rivaroxaban 15 mg tablet 15 mg PO DAILY@04 Qty: 90 0RF Rx Instructions: Must make an appointment for further refills furosemide 20 mg tablet 20 mg PO DAILY@04 nitroglycerin 0.4 mg tablet, sublingual 0.4 mg sublingual Q5MIN PRN (Reason: Chest Pain) albuterol sulfate 90 mcg/actuation HFA aerosol inhaler 2 puff INHALATION Q6H PRN (Reason: Shortness Of Breath) pantoprazole 40 mg tablet,delayed release (DR/EC) 40 mg PO BID Qty: 0 0RF Discharge Orders: Discharge ED (Routine); Ordered 10/26/22 Ordered By: Willis Chou Referrals: Christi Paris PA-C [Primary Care Provider] - 4-7 days Patient Instructions: Osteoarthritis (ED), Opioid Safety, Pain Management Activity Restrictions/Additional Instructions: You may get the brace that was ordered for you at [facility], across the street from the hospital. Take the prescription with you. Tylenol for pain. Ice for the first 48 hours should help. You were given medication in the emergency department that we will begin to work in 12 hours or so, and will last a few days. Return for any problems. See your doctor early next week. Coding Level of Care Code ED Shank Skinner for Chg [facility]wd Documented by User: Willis Chou DO 10/26/22 13:51 HPI - Extremity Problem General: Chief complaint: Extremity Problem,Nontraumatic Stated complaint: right hand injury Time Seen by Provider: 10/26/22 12:50 PFSH ED PFSH: Medical History Atrial fibrillation GERD (gastroesophageal reflux disease) HTN (hypertension) Hx of transient cerebral ischemia Hyperlipidemia Urinary incontinence Family History Other CAD (coronary artery disease) Cancer Diabetes Denies family history of Anesthesia complication Bleeding disorder Social History Smoking and tobacco status: never smoked Alcohol intake: never Substance/Drug Use: never Course Vital Signs: Vital signs: Vital Signs Temperature 98.2 F 10/26/22 12:48 Pulse Rate 69 10/26/22 12:59 Respiratory Rate 17 10/26/22 12:48 Blood Pressure 187/104 10/26/22 12:48 Pulse Oximetry 94 10/26/22 12:59 Oxygen Delivery Me thod Room Air 10/26/22 12:48 MDM - Extremity (Nontraumatic) Medical Decision Making X-ray negative for fracture. Bedside ultrasound does not reveal any active hemorrhage from any ruptured vessel. 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 Sonja bishop. 1 dose of dexamethasone. Tylenol. Outpatient follow-up. XR interpretation done by ED provider, pending radiology final review Discharge Plan Discharge Patient Disposition: Home Clinical Impression: Osteoarthritis of right wrist Condition: Stable Prescriptions: No Action ascorbic acid (vitamin C) 1,000 mg tablet 500 mg PO DAILY One-A-Day Women's 50 Plus 400-20 mcg tablet 1 tab PO DAILY metoprolol succinate 25 mg tablet extended release 24 hr 25 mg PO DAILY Qty: 90 3RF rivaroxaban 15 mg tablet 15 mg PO DAILY@04 Qty: 90 0RF Rx Instructions: Must make an appointment for further refills furosemide 20 mg tablet 20 mg PO DAILY@04 nitroglycerin 0.4 mg tablet, sublingual 0.4 mg sublingual Q5MIN PRN (Reason: Chest Pain) albuterol sulfate 90 mcg/actuation HFA aerosol inhaler 2 puff INHALATION Q6H PRN (Reason: Shortness Of Breath) pantoprazole 40 mg tablet,delayed release (DR/EC) 40 mg PO BID Qty: 0 0RF Discharge Orders: Discharge ED (Routine); Ordered 10/26/22 Ordered By: Willis Chou Referrals: Christi Paris PA-C [Primary Care Provider] - 4-7 days Patient Instructions: Osteoarthritis (ED), Opioid Safety, Pain Management Activity Restrictions/Additional Instructions: You may get the brace that was ordered for you at [facility], across the street from the hospital. Take the prescription with you. Tylenol for pain. Ice for the first 48 hours should help. You were given medication in the emergency department that we will begin to work in 12 hours or so, and will last a few days. Return for any problems. See your doctor early next week. Coding Level of Care Code ED Shank Skinner for Chase Maier
--- NOTE | 2022-10-26 13:06 | XR_ITS ---
WS: [id number] XR wrist RT min 3V* [id number] REASON FOR EXAM: r wrist pain FINDINGS: Moderate decrease in bone density. Distal radius and ulna intact with no acute fracture identified. The bones of the wrist are intact with no acute fracture identified. There are mild changes of osteoarthritis in the radiocarpal joint otherwise no significant joint abno rmality. No soft tissue abnormality. IMPRESSION: No acute bone or joint abnormality.
[2022-10-26] MEDS: HYDROcodone-acetaminophen 5-325 mg Tablet 1 TAB PO (13:58)
[2022-10-26] MEDS: dexamethasone 4 mg Tablet 8 MG PO (13:59)
== END 2022-10-26 14:02 | disposition home or self-care (01) ==
PROVIDERS: Emergency Provider Emergency Medicine; PCP Physician Assistant
DX: M19.031 Primary osteoarthritis, right wrist (principal); I10 Essential (primary) hypertension; E78.5 Hyperlipidemia, unspecified
CPT/HCPCS: 73110; 99283; J8540

== ENCOUNTER 2022-11-04 16:41 | Emergency (ER) | payer MEDICARE, SELFPAY ==
[2022-11-04 16:44] VITALS: BP 173/90; PULSE 55; RESP 18; TEMP 36.8; O2SAT 98
--- NOTE | 2022-11-04 16:45 | CTR_ITS ---
PROCEDURE INFORMATION: Exam: CT Head Without Contrast Exam date and time: 11/04/2022 4:54 PM Age: 87 years old Clinical indication: Pain; Altered mental status/memory loss; Confusion or disorientation; Headache not specified; Additional info: Headache confusion/chronic oral anticoag TECHNIQUE: Imaging protocol: Computed tomography of the head without contrast. Radiation optimization: All CT scans at this facility use at least one of these dose optimization techniques: automated exposure control; mA and/or kV adjustment per patient size (includes targeted exams where dose is matched to clinical indication); or iterative reconstruction. REPORTING DATA: Count of CT and Cardiac NM exams in prior 12 months: This patient has received [address] and 0 known cardiac nuclear medicine studies in the 12 months prior to the current study. COMPARISON: CT head wo con* [id number] 01/14/2022 5:51 PM RADIATION DOSE METRICS: Total DLP (mGy-cm): 1015.18 FINDINGS: Brain: No hemorrhage. No edema. Moderate diffuse cerebral atrophy and mild sequela of chronic small vessel ischemic disease. No mass effect. Cerebral ventricles: No ventriculomegaly. Paranasal sinuses: Visualized sinuses are unremarkable. No fluid levels. Mastoid air cells: Visualized mastoid air cells are well aerated. Bones/joints: Unremarkable. No acute fracture. Soft tissues: Unremarkable. CT/CT head wo con* [id number] IMPRESSION: No acute intracranial abnormality.
--- NOTE | 2022-11-04 16:45 | XRR_ITS ---
PROCEDURE INFORMATION: Exam: XR Chest Exam date and time: 11/04/2022 4:49 PM Age: 87 years old Clinical indication: Cough; Additional info: Dyspnea/cough TECHNIQUE: Imaging protocol: Radiologic exam of the chest. Views: 1 view. COMPARISON: CR XR chest 1V portable [id number] 04/10/2021 9:42 AM FINDINGS: Lungs: A few nodules/masses noted in both lungs measuring up to 2.4 cm in the right lower lung. These nodules are enlarging in retrospect when compared to prior chest radiograph. Pleural spaces: Unremarkable. No pleural effusion. No pneumothorax. Heart/Mediastinum: Unremarkable. No cardiomegaly. Bones/joints: Unremarkable. XR/XR chest 1V portable [id number] IMPRESSION: Enlarging nodules/masses in both lungs measuring up to 2.4 cm in the right lower lung. CT chest is recommended for further evaluation.
--- NOTE | 2022-11-04 16:48 | W.ED.GENADLT ---
HPI - General Adult General: Chief complaint: Headache Stated complaint: confusion,ams, headache Time Seen by Provider: 11/04/22 16:45 Source: patient Mode of arrival: EMS History of Present Illness: 79-year-old female who presents emergency room with jewish pain. States started yesterday had some mild confusion she has a history of stroke she has no focal deficits at this time she is awake and alert answers questions appropriately. No vision changes. Onset (ago): day(s) Location: head Pain Consistency: intermittent and now resolved Relieving factors: none Exacerbating factors: none Associated symptoms: Reports confusion (Resolved); Deny chest pain, cough, diaphoresis, decreased appetite, dyspnea, fevers/chills, headache(s), malaise, nausea, rash, palpitations, seizures, short of breath, syncope, vomiting or weakness Treatments prior to arrival: none Review of Systems Const: Denies: fever(s), chills, fatigue, malaise or diaphoresis Card: Denies: chest pain, palpitations or syncope Resp: Denies: dyspnea GI: Denies: abdominal pain, nausea or vomiting : Denies: dysuria, urinary frequency or urinary urgency Musc: Denies: neck pain or back pain Skin/Breast: Denies: rash Neuro: Reports: confusion (Resolved); Denies: headache(s) PFSH ED PFSH: Medical History Atrial fibrillation GERD (gastroesophageal reflux disease) HTN (hypertension) Hx of transient cerebral ischemia Hyperlipidemia Urinary incontinence Family History Other CAD (coronary artery disease) Cancer Diabetes Denies family history of Anesthesia complication Bleeding disorder Social History Smoking and tobacco status: never smoked Alcohol intake: never Substance/Drug Use: never Physical Exam Const: COMMON NORMALS: no acute distress GENERAL APPEARANCE: cooperative and comfortable ORIENTATION/CONSCIOUSNESS: Yes awake HENMT: COMMON NORMALS: normocephalic, atraumatic and hearing grossly normal bilaterally HEAD & SCALP: normocephalic and atraumatic OTHER: No tenderness over the temporal arteries. Resp: COMMON NORMALS: normal respiratory effort, No retractions, No use of accessory muscles and clear to auscultation bilaterally AUSCULTATION: clear to auscultation bilaterally Cardio: COMMON NORMALS: regular rate, regular rhythm and No murmurs present (Cardio) RATE: regular rate RHYTHM: regular rhythm GI: COMMON NORMALS: Soft to palpation and No hepatosplenomegaly present AUSCULTATION: Yes normoactive bowel sounds PALPATION: Yes Soft to palpation, No Tenderness to palpation present (GI), No Guarding due to palpation present (GI) and Yes No hepatosplenomegaly present Extremity: COMMON NORMALS: normal to inspection, capillary refill normal, no clubbing, cyanosis or edema, no calf tenderness and no pedal edema Neuro: OTHER: Neurologically intact no focal neurologic deficits are noted. Cranial nerves II to XII grossly intact stroke score 0 Skin: COMMON NORMALS: no rashes or lesions noted GENERAL SKIN EXAM: no rashes or lesions noted Course Vital Signs: Vital signs: Vital Signs Temperature 98.3 F 11/04/22 18:15 Pulse Rate 55 L 11/04/22 18:15 Respiratory Rate 18 11/04/22 18:15 Blood Pressure 173/90 11/04/22 18:15 Pulse Oximetry 98 11/04/22 18:15 Oxygen Delivery Me thod Room Air 11/04/22 16:44 MDM - General Adult Medical Decision Making No focal findings this time. Patient is on anticoagulation rivaroxaban. Continue current medications. If has any recurrent changes return. Medical Records I reviewed the patient's medical records. Lab Data I reviewed the patient's lab results. 11/04/22 15:48 11/04/22 15:48 Radiology Impressions Chest X-Ray 11/04/22 16:45 IMPRESSION: Enlarging nodules/masses in both lungs measuring up to 2.4 cm in the right lower lung. CT chest is recommended for further evaluation. Head CT 11/04/22 16:45 IMPRESSION: No acute intracranial abnormality. Laboratory Results WBC 5.78 10^3/uL (3.29-11.43) 11/04/22 15:48 RBC 4.38 10^6/uL (3.85-5.65) 11/04/22 15:48 Hgb 13.50 g/dL (11.27-16.99) 11/04/22 15:48 Hct 39.5 % (36-47) 11/04/22 15:48 MCV 90.2 fl (85-98) 11/04/22 15:48 MCH 30.8 pg (27-33) 11/04/22 15:48 MCHC 34.2 g/dL (30-55) 11/04/22 15:48 RDW 14.1 % (12.1-15.1) 11/04/22 15:48 Plt Count 206 10^3/cmm (157-399) 11/04/22 15:48 MPV 10.3 fL (7.4-10.4) 11/04/22 15:48 Neut % (Auto) 54.5 % 11/04/22 15:48 Lymph % (Auto) 28.5 % 11/04/22 15:48 Crisp % (Auto) 10.7 % 11/04/22 15:48 Eos % (Auto) 5.5 % 11/04/22 15:48 Baso % (Auto) 0.5 % 11/04/22 15:48 Neut # (Auto) 3.14 10^3/uL (1.8-7.7) 11/04/22 15:48 Lymph # (Auto) 1.7 10^3/uL (0.8-4.8) 11/04/22 15:48 Crisp # (Auto) 0.6 10^3/uL (0.2-0.9) 11/04/22 15:48 Eos # (Auto) 0.3 10^3/uL (0.0-0.8) 11/04/22 15:48 Baso # (Auto) 0.0 10^3/uL (0.0-0.1) 11/04/22 15:48 Nucleated RBC % (auto) 0 % 11/04/22 15:48 Nucleated RBCs # 0.0 /100WBC 11/04/22 15:48 Sodium 141 mmol/L (136-145) 11/04/22 15:48 Potassium 3.8 mmol/L (3.5-5.1) 11/04/22 15:48 Chloride 105 mmol/L (98-107) 11/04/22 15:48 Carbon Dioxide 25 mmol/L (22-29) 11/04/22 15:48 Anion Gap 14.8 (5-19) 11/04/22 15:48 BUN 24 mg/dL (8-23) H 11/04/22 15:48 Creatinine 0.9 mg/dL (0.5-0.9) 11/04/22 15:48 GFR Calculation Not Reportable 11/04/22 15:48 Glucose 91 mg/dL (65-115) 11/04/22 15:48 Calculated Osmolality 296 mOsm/kg (285-295) H 11/04/22 15:48 Calcium 8.7 mg/dL (8.5-10.5) 11/04/22 15:48 Total Bilirubin 0.4 mg/dL (0.15-1.2) 11/04/22 15:48 AST 21 U/L (0-32) 11/04/22 15:48 ALT 16 U/L (0-33) 11/04/22 15:48 Alkaline Phosphatase 127 U/L (35-105) H 11/04/22 15:48 Total Protein 7.3 g/dL (6.6-8.7) 11/04/22 15:48 Albumin 3.8 g/dL (3.5-5.2) 11/04/22 15:48 Globulin 3.5 g/dL (1.3-4.6) 11/04/22 15:48 All radiology interpretation(s) finalized by discharge Discharge Plan Discharge Patient Disposition: Home Clinical Impression: TIA (transient ischemic attack), Hearing loss Condition: Stable Prescriptions: No Action ascorbic acid (vitamin C) 1,000 mg tablet 500 mg PO DAILY One-A-Day Women's 50 Plus 400-20 mcg tablet 1 tab PO DAILY metoprolol succinate 25 mg tablet extended release 24 hr 25 mg PO DAILY Qty: 90 3RF rivaroxaban 15 mg tablet 15 mg PO DAILY@04 Qty: 90 0RF Rx Instructions: Must make an appointment for further refills furosemide 20 mg tablet 20 mg PO DAILY@04 nitroglycerin 0.4 mg tablet, sublingual 0.4 mg sublingual Q5MIN PRN (Reason: Chest Pain) albuterol sulfate 90 mcg/actuation HFA aerosol inhaler 2 puff INHALATION Q6H PRN (Reason: Shortness Of Breath) pantoprazole 40 mg tablet,delayed release (DR/EC) 40 mg PO BID Qty: 0 0RF Discharge Orders: Discharge ED (Routine); Ordered 11/04/22 Ordered By: Arnaud Enriquez Referrals: Christi Paris PA-C [Primary Care Provider] - Discharge Diet: Usual diet Discharge Activity: Increase activity as tolerated Patient Instructions: Opioid Safety, Pain Management Activity Restrictions/Additional Instructions: Follow-up with your primary care doctor Coding Level of Care Code ED Outdoor Adventure Instructor for Chase Maier
[2022-11-04 16:56] LABS: Basophils % 0.5 %; Eosinophils # 0.3 10^3/uL (0.0-0.8); Eosinophils % 5.5 %; Hematocrit 39.5 % (36-47); Lymphocytes # 1.7 10^3/uL (0.8-4.8); Lymphocytes % 28.5 %; Mean Corpuscular HGB Conc 34.2 g/dL (30-55); Mean Corpuscular Hemoglobin 30.8 pg (27-33); Mean Corpuscular Volume 90.2 fl (85-98); Mean Platelet Volume 10.3 fL (7.4-10.4); Monocytes # 0.6 10^3/uL (0.2-0.9); Monocytes % 10.7 %; Neutrophils # 3.14 10^3/uL (1.8-7.7); Neutrophils % 54.5 %; Nucleated Red Blood Cells % 0 %; Platelet Count 206 10^3/cmm (157-399); Red Blood Count 4.38 10^6/uL (3.85-5.65); Red Cell Distribution Width 14.1 % (12.1-15.1); White Blood Count 5.78 10^3/uL (3.29-11.43)
--- NOTE | 2022-11-04 17:06 | ECG_ITS ---
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 Measurements Intervals [place] Rate: 78 P: 0 [place]: 0 QRS: 62 QRSD: 86 T: 52 QT: 405 QTc: 463 Interpretive Statements ATRIAL FIBRILLATION Compared to ECG 01/14/2022 17:16:10 Sinus rhythm no longer present Electronically Signed On 11-05-2022 9:38:36 CDT by Marcin Campos M.D. [email or web address] medical groupLK FREEMANuniversity [facility].[employer]/store/NU/[id number] f
[2022-11-04 17:20] LABS: Alanine Aminotransferase 16 U/L (0-33); Albumin Level 3.8 g/dL (3.5-5.2); Alkaline Phosphatase 127 U/L (35-105); Anion Gap 14.8 (5-19); Aspartate Amino Transferase 21 U/L (0-32); Blood Urea Nitrogen 24 mg/dL (8-23); Calcium 8.7 mg/dL (8.5-10.5); Carbon Dioxide 25 mmol/L (22-29); Chloride 105 mmol/L (98-107); Globulin 3.5 g/dL (1.3-4.6); Glucose 91 mg/dL (65-115); Osmolality Calculated 296 mOsm/kg (285-295); Potassium 3.8 mmol/L (3.5-5.1); Sodium 141 mmol/L (136-145); Total Bilirubin 0.4 mg/dL (0.15-1.2); Total Protein 7.3 g/dL (6.6-8.7)
[2022-11-04 18:15] VITALS: BP 173/90; PULSE 55; RESP 18; TEMP 36.8; O2SAT 98
== END 2022-11-04 18:16 | disposition home or self-care (01) ==
PROVIDERS: Emergency Provider Family Medicine; PCP Physician Assistant
DX: G45.9 Transient cerebral ischemic attack, unspecified (principal); H91.90 Unspecified hearing loss, unspecified ear; I10 Essential (primary) hypertension; E78.5 Hyperlipidemia, unspecified
CPT/HCPCS: 70450; 71045; 80053; 85025; 93005; 99285

== ENCOUNTER 2023-06-30 19:33 | Emergency (ER) | payer MEDICARE, MEDICAID, SELFPAY ==
[2023-06-30 19:34] VITALS: BP 134/73; PULSE 86; RESP 18; TEMP 36.7; O2SAT 96; BMI 25.7
--- NOTE | 2023-06-30 19:36 | XRR_ITS ---
PROCEDURE INFORMATION: Exam: XR Chest Exam date and time: 06/30/2023 7:53 PM Age: 88 years old Clinical indication: Chest wall pain; Additional info: Chest pain TECHNIQUE: Imaging protocol: Radiologic exam of the chest. Views: 1 view. COMPARISON: CR (CHEST, ) 11/04/2022 4:49 PM FINDINGS: Lungs: No focal consolidation. Enlarging pulmonary nodules/masses in both lungs compatible with metastatic disease. Pleural spaces: No evidence of pneumothorax. No evidence of pleural effusion. Heart/Mediastinum: Cardiomediastinal silhouette is within normal limits. Bones/joints: No evidence of acute osseous abnormality. XR/XR chest 1V portable [id number] IMPRESSION: 1. Enlarging pulmonary nodules/masses in both lungs compatible with metastatic disease.
--- NOTE | 2023-06-30 20:12 | ED_ITS ---
HPI - Arrhythmia/Palpitations 2 General: Chief Complaint: Arrhythmia/Palpitations Stated Complaint: CP Time Seen by Provider: 06/30/23 19:35 History of Present Illness: Patient presents to the ER with complaints of around noon she was sitting in a chair and her legs just extended out without her doing this lasted for about 5 minutes and then they resolved and went back down. Patient also felt generalized weakness. Patient went to her clinic really got an EKG that showed possible A-fib so they sent her here to be evaluated. Patient denies any chest pain shortness of breath and says she feels back to normal currently. Per chart review patient does have a history of A-fib, transient cerebral ischemia, is on Xarelto and Lasix. Review of Systems 2 General: Reports: 10 or more systems reviewed and unremarkable except in HPI and below PFSH ED 2 PFSH: Medical History Hyperlipidemia HTN (hypertension) Urinary incontinence GERD (gastroesophageal reflux disease) Atrial fibrillation Hx of transient cerebral ischemia Family History Other CAD (coronary artery disease) Cancer Diabetes Denies family history of Anesthesia complication Bleeding disorder Social History Smoking and tobacco/nicotine status: never used tobacco/nicotine Alcohol intake: never Substance/Drug Use: never Physical Exam 2 Const: COMMON NORMALS: no acute distress, average body habitus, patient oriented x3, no limitations, healthy appearing, alert and well nourished HENMT: COMMON NORMALS: normocephalic, atraumatic, hearing grossly normal bilaterally, external ears normal, Normal external nose present, moist oral mucous membranes and oropharynx normal HEAD & SCALP: normocephalic and atraumatic NOSE: Normal external nose present EXTERNAL EAR: Yes external ears normal Neck/C-Spine: COMMON NORMALS: no JVD Chest: COMMONS NORMALS: normal inspection of the chest and normal palpation of entire chest wall Resp: COMMON NORMALS: normal respiratory effort, No retractions, No use of accessory muscles and clear to auscultation bilaterally AUSCULTATION: clear to auscultation bilaterally Cardio: COMMON NORMALS: no JVD, regular rate, regular rhythm, S1 normal heart sound present, S2 normal heart sound present, No gallops present (Cardio), No clicks present (Cardio), No murmurs present (Cardio) and No rub (Cardio) R ATE: regular rate RHYTHM: regular rhythm HEART SOUNDS: S1 normal heart sound present and S2 normal heart sound present GI: COMMON NORMALS: Normal to inspection, nondistended, normoactive bowel sounds present, Soft to palpation, non-tender, No hepatosplenomegaly present and no masses PALPATION: Yes Soft to palpation and Yes No hepatosplenomegaly present Extremity: NARRATIVE EXTREMITY EXAM: Trace to 1+ nonpitting edema bilateral lower extremities Neuro: COMMON NORMALS: patient oriented x3 SENSORIUM/ORIENTATION: Yes alert Course 2 Vital Signs: Vital signs: Vital Signs Temperature 98.1 F 06/30/23 19:34 Pulse Rate 86 06/30/23 19:34 Respiratory Rate 18 06/30/23 19:34 Blood Pressure 134/73 06/30/23 19:34 Pulse Oximetry 96 06/30/23 19:34 MDM - Arrhythmia/Palpitations Medical Decision Making Patient had lab work, chest x-ray, EKG, EKG was uneventful, lab work was unremarkable, x-ray did show enlarging pulmonary masses in both lungs compatible with metastatic disease. Upon talking to the daughter they know about these lung masses and nursing a rand tacker in [place] and he already had biopsy of them. Patient will be discharged home to follow-up with her PCP. Differential Diagnosis Likely palpitations, artial fibrillation and artial flutter; Unlikely anxiety, sinus tachycardia, ventricular premature beats, supraventricular tachycardia, ventricular tachycardia or WPW Medical Records I reviewed the patient's medical records. Lab Data I reviewed the patient's lab results. 06/30/23 19:45 06/30/23 19:45 Radiology Impressions Chest X-Ray 06/30/23 19:36 IMPRESSION: 1. Enlarging pulmonary nodules/masses in both lungs compatible with metastatic disease. Laboratory Results WBC 5.85 10^3/uL (3.29-11.43) 06/30/23 19:45 RBC 4.15 10^6/uL (3.85-5.65) 06/30/23 19:45 Hgb 12.40 g/dL (11.27-16.99) 06/30/23 19:45 Hct 37.8 % (36-47) 06/30/23 19:45 MCV 91.1 fl (85-98) 06/30/23 19:45 MCH 29.9 pg (27-33) 06/30/23 19:45 MCHC 32.8 g/dL (30-55) 06/30/23 19:45 RDW 14.4 % (12.1-15.1) 06/30/23 19:45 Plt Count 194 10^3/cmm (157-399) 06/30/23 19:45 MPV 10.4 fL (7.4-10.4) 06/30/23 19:45 Neut % (Auto) 57.8 % 06/30/23 19:45 Lymph % (Auto) 28.9 % 06/30/23 19:45 Bee % (Auto) 10.3 % 06/30/23 19:45 Eos % (Auto) 2.2 % 06/30/23 19:45 Baso % (Auto) 0.3 % 06/30/23 19:45 Neut # (Auto) 3.38 10^3/uL (1.8-7.7) 06/30/23 19:45 Lymph # (Auto) 1.7 10^3/uL (0.8-4.8) 06/30/23 19:45 Bee # (Auto) 0.6 10^3/uL (0.2-0.9) 06/30/23 19:45 Eos # (Auto) 0.1 10^3/uL (0.0-0.8) 06/30/23 19:45 Baso # (Auto) 0.0 10^3/uL (0.0-0.1) 06/30/23 19:45 Nucleated RBC % (auto) 0 % 06/30/23 19:45 Nucleated RBCs # 0.0 /100WBC 06/30/23 19:45 PT 15.00 SECONDS (12.1-14.9) H 06/30/23 19:45 INR 1.14 (0.8-1.2) 06/30/23 19:45 Sodium 135 mmol/L (136-145) L 06/30/23 19:45 Potassium 4.4 mmol/L (3.5-5.1) 06/30/23 19:45 Chloride 99 mmol/L (98-107) 06/30/23 19:45 Carbon Dioxide 26 mmol/L (22-29) 06/30/23 19:45 Anion Gap 14.4 (5-19) 06/30/23 19:45 BUN 30 mg/dL (8-23) H 06/30/23 19:45 Creatinine 0.8 mg/dL (0.5-0.9) 06/30/23 19:45 GFR Calculation Not Reportable 06/30/23 19:45 Glucose 97 mg/dL (65-115) 06/30/23 19:45 Calculated Osmolality 286 mOsm/kg (285-295) 06/30/23 19:45 Calcium 8.5 mg/dL (8.5-10.5) 06/30/23 19:45 Total Bilirubin 0.3 mg/dL (0.15-1.2) 06/30/23 19:45 AST 17 U/L (0-32) 06/30/23 19:45 ALT 10 U/L (0-33) 06/30/23 19:45 Alkaline Phosphatase 110 U/L (35-105) H 06/30/23 19:45 Troponin T Baseline 19 ng/L (0-10) H 06/30/23 19:45 Troponin T 120 Minute 19.33 ng/L (0-10) H 06/30/23 21:50 Delta Troponin T 0.33 ABS# (0-10) 06/30/23 21:50 Total Protein 6.9 g/dL (6.6-8.7) 06/30/23 19:45 Albumin 3.8 g/dL (3.5-5.2) 06/30/23 19:45 Globulin 3.1 g/dL (1.3-4.6) 06/30/23 19:45 All radiology interpretation(s) finalized by discharge EKG Data EKG 1: I personally reviewed and interpreted this EKG as follows: EKG interpretation date: 06/30/23 EKG interpretation time: 19:48 Interpretation: Ventricular rate 72 bpm, [place] interval 151, QRS 84, QTc of 404, sinus rhythm with occasional ectopic Other EKG comments: Chest X-Ray 06/30/23 19:36 IMPRESSION: 1. Enlarging pulmonary nodules/masses in both lungs compatible with metastatic disease. Discharge Plan Discharge Patient Disposition: Home Clinical Impression: Hypertension Atrial fibrillation Qualifiers: Atrial fibrillation type: unspecified Qualified Code(s): I48.91 - Unspecified atrial fibrillation Condition: Stable Prescriptions: No Action ascorbic acid (vitamin C) 1,000 mg tablet 500 mg PO DAILY One-A-Day Women's 50 Plus 400-20 mcg tablet 1 tab PO DAILY metoprolol succinate 25 mg tablet extended release 24 hr 25 mg PO DAILY Qty: 90 3RF rivaroxaban 15 mg tablet 15 mg PO DAILY@04 Qty: 90 0RF Rx Instructions: Must make an appointment for further refills furosemide 20 mg tablet 20 mg PO DAILY@04 nitroglycerin 0.4 mg tablet, sublingual 0.4 mg sublingual Q5MIN PRN (Reason: Chest Pain) albuterol sulfate 90 mcg/actuation HFA aerosol inhaler 2 puff INHALATION Q6H PRN (Reason: Shortness Of Breath) pantoprazole 40 mg tablet,delayed release (DR/EC) 40 mg PO BID Qty: 0 0RF Discharge Orders: Discharge ED (Routine); Ordered 06/30/23 Ordered By: Piotr Nuñez Referrals: Christi Paris PA-C [Primary Care Provider] - 1 week Patient Instructions: Atrial Fibrillation, Hypertension (ED) Activity Restrictions/Additional Instructions: Your evaluation in ER was unremarkable. Your chest x-ray did show those lung nodules. Please continue to follow-up with your rand tacker in [place] regarding these. If any symptoms worsen or return please feel free to return to the ER. Otherwise follow-up with your family proximal physician within next 7 days for further evaluation and treatment. Thank you for choosing [facility] for your healthcare needs today. Please realize that you were seen in the emergency department and that we are providing you with an emergency medical screening exam and this may not be a complete and all exclusive of all testing and/or medical workup we may need to determine your element or severity of your illness. It is very important that you follow-up as instructed with your primary care provider or specialist for the additional evaluation and to discuss your medical treatment plan. You may return to the emergency department should you have concerns or if your condition changes or worsens in any way. Coding Level of Care Code ED Wood Filler for Chase Maier
[2023-06-30 20:21] LABS: Basophils % 0.3 %; Eosinophils # 0.1 10^3/uL (0.0-0.8); Eosinophils % 2.2 %; Hematocrit 37.8 % (36-47); Lymphocytes # 1.7 10^3/uL (0.8-4.8); Lymphocytes % 28.9 %; Mean Corpuscular HGB Conc 32.8 g/dL (30-55); Mean Corpuscular Hemoglobin 29.9 pg (27-33); Mean Corpuscular Volume 91.1 fl (85-98); Mean Platelet Volume 10.4 fL (7.4-10.4); Monocytes # 0.6 10^3/uL (0.2-0.9); Monocytes % 10.3 %; Neutrophils # 3.38 10^3/uL (1.8-7.7); Neutrophils % 57.8 %; Nucleated Red Blood Cells % 0 %; Platelet Count 194 10^3/cmm (157-399); Red Blood Count 4.15 10^6/uL (3.85-5.65); Red Cell Distribution Width 14.4 % (12.1-15.1); White Blood Count 5.85 10^3/uL (3.29-11.43)
[2023-06-30 20:32] LABS: INR 1.14 (0.8-1.2)
[2023-06-30 20:38] LABS: Troponin(5th) Baseline 19 ng/L (0-10)
[2023-06-30 20:42] LABS: Alanine Aminotransferase 10 U/L (0-33); Albumin Level 3.8 g/dL (3.5-5.2); Alkaline Phosphatase 110 U/L (35-105); Anion Gap 14.4 (5-19); Aspartate Amino Transferase 17 U/L (0-32); Blood Urea Nitrogen 30 mg/dL (8-23); Calcium 8.5 mg/dL (8.5-10.5); Carbon Dioxide 26 mmol/L (22-29); Chloride 99 mmol/L (98-107); Globulin 3.1 g/dL (1.3-4.6); Glucose 97 mg/dL (65-115); Osmolality Calculated 286 mOsm/kg (285-295); Potassium 4.4 mmol/L (3.5-5.1); Sodium 135 mmol/L (136-145); Total Bilirubin 0.3 mg/dL (0.15-1.2); Total Protein 6.9 g/dL (6.6-8.7)
--- NOTE | 2023-06-30 21:36 | ECG_ITS ---
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 Measurements Intervals [place] Rate: 72 P: 85 MD: 151 QRS: 76 QRSD: 84 T: 52 QT: 380 QTc: 417 Interpretive Statements SINUS RHYTHM WITH OCCASIONAL ECTOPIC PREMATURE COMPLEXES Compared to ECG 11/04/2022 17:06:07 Atrial fibrillation no longer present Electronically Signed On 06-30-2023 20:25:57 CDT by Marcin Campos M.D. [id number]
[2023-06-30 22:16] LABS: Troponin 5 2HR 19.33 ng/L (0-10); Troponin 5 2HR Delta 0.33 ABS# (0-10)
[2023-06-30 22:32] VITALS: BP 141/72; PULSE 73; RESP 17; O2SAT 93
== END 2023-06-30 22:40 | disposition home or self-care (01) ==
PROVIDERS: Emergency Provider Emergency Medicine; PCP Physician Assistant
DX: I48.91 Unspecified atrial fibrillation (principal); I10 Essential (primary) hypertension; E78.5 Hyperlipidemia, unspecified
CPT/HCPCS: 36415; 71045; 80053; 84484; 85025; 85610; 93005; 99285

== ENCOUNTER 2023-07-15 21:02 | Inpatient (IN) | payer MEDICARE, MEDICAID, SELFPAY ==
[2023-07-15 21:08] VITALS: BP 156/121; PULSE 165; RESP 16; TEMP 36.4; O2SAT 93; BMI 34.3
--- NOTE | 2023-07-15 21:08 | XRR_ITS ---
PROCEDURE INFORMATION: Exam: XR Left Hip Exam date and time: 07/15/2023 9:23 PM Age: 88 years old Clinical indication: Injury or trauma; Fall; Blunt trauma (contusions or hematomas); Patient HX: Patient fell out of wheelchair landing on left hip when hitting ground. C/O severe hip pain. TECHNIQUE: Imaging protocol: Radiologic exam of the left hip. Views: 2 or 3 views hip with pelvis when performed. COMPARISON: CT abdomen pelvis wo con [id number] 10/26/2020 5:31 PM FINDINGS: Bones/joints: Left subcapital impacted displaced hip fracture. Soft tissues: Unremarkable. Vasculature: Scattered vascular calcifications. XR/XR hip LT 2-3V wo/w pel* [id number] IMPRESSION: 1. Left subcapital impacted displaced hip fracture. 2. Scattered vascular calcifications.
--- NOTE | 2023-07-15 21:08 | XRR_ITS ---
PROCEDURE INFORMATION: Exam: XR Chest Exam date and time: 07/15/2023 9:23 PM Age: 88 years old Clinical indication: Injury or trauma; Fall; Blunt trauma (contusions or hematomas); Patient HX: Patient fell out of wheelchair landing on left hip when hitting ground. C/O severe hip pain. TECHNIQUE: Imaging protocol: Radiologic exam of the chest. Views: 1 view. COMPARISON: CR (CHEST, ) 06/30/2023 7:53 PM FINDINGS: Lungs: Multifocal pulmonary nodules, similar to prior exam with a dominant right lower lobe 2.7 cm nodule, likely reflecting metastatic disease. Pleural spaces: Unremarkable. No pleural effusion. No pneumothorax. Heart/Mediastinum: Cardiomegaly. Bones/joints: Unremarkable. XR/XR chest 1V portable [id number] IMPRESSION: 1. Multifocal pulmonary nodules, similar to prior exam with a dominant right lower lobe 2.7 cm nodule, likely reflecting metastatic disease. 2. Cardiomegaly.
--- NOTE | 2023-07-15 21:09 | ECG_ITS ---
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 Measurements Intervals [place] Rate: 147 P: 0 [place]: 0 QRS: 76 QRSD: 81 T: -3 QT: 269 QTc: 421 Interpretive Statements ATRIAL FIBRILLATION WITH RAPID VENTRICULAR RESPONSE NONSPECIFIC ST & T-WAVE ABNORMALITY Compared to ECG 06/30/2023 19:48:05 T-wave abnormality now present Sinus rhythm no longer present Electronically Signed On 07-16-2023 20:28:13 CDT by Chelo Treviño M.D. [id number]
--- NOTE | 2023-07-15 21:26 | W.ED.EXTPRO ---
HPI - Extremity Problem General: Chief complaint: Extremity Injury, Lower Stated complaint: HIP PAIN Time Seen by Provider: 07/15/23 21:03 Source: patient and EMS Mode of arrival: EMS Limitations: no limitations History of Present Illness: 88-year-old female states she had a fall landed on her left hip just prior to arrival. She has severe left hip pain she rates a 8 out of 10 she was unable to stand. EMS states that after give her dose of fentanyl her heart rate jumped up to the 160s it is currently 103 she denies any head injury denies any chest or abdominal pain Associated symptoms: Deny chest pain, fever(s) or rash Review of Systems Const: Denies: fever(s), chills, body aches or change in appetite ENMT: Denies: throat pain or dental pain Card: Denies: chest pain Resp: Denies: dyspnea GI: Denies: abdominal pain, nausea, vomiting or diarrhea Musc: Reports: extremity pain; Denies: neck pain or back pain Skin/Breast: Denies: rash Neuro: Denies: headache(s) PFSH ED PFSH: Medical History Hyperlipidemia HTN (hypertension) Urinary incontinence GERD (gastroesophageal reflux disease) Atrial fibrillation Hx of transient cerebral ischemia Family History Other CAD (coronary artery disease) Cancer Diabetes Denies family history of Anesthesia complication Bleeding disorder Social History Smoking and tobacco/nicotine status: never used tobacco/nicotine Alcohol intake: never Substance/Drug Use: never Physical Exam Const: COMMON NORMALS: patient oriented x3 HENMT: COMMON NORMALS: normocephalic and atraumatic HEAD & SCALP: normocephalic and atraumatic Eye: COMMON NORMALS: Equal, round and reactive pupils present and EOMs intact bilaterally PUPIL: Yes Equal, round and reactive pupils present Neck/C-Spine: COMMON NORMALS: full ROM and supple Chest: COMMONS NORMALS: normal inspection of the chest and normal palpation of entire chest wall Resp: COMMON NORMALS: normal respiratory effort, No retractions, No use of accessory muscles and clear to auscultation bilaterally AUSCULTATION: clear to auscultation bilaterally Cardio: COMMON NORMALS: No murmurs present (Cardio) RATE: tachycardic RHYTHM: abnormal rhythm irregularly irregular GI: COMMON NORMALS: Normal to inspection, nondistended, normoactive bowel sounds present, Soft to palpation, non-tender and no masses PALPATION: Yes Soft to palpation Extremity: NARRATIVE EXTREMITY EXAM: Tenderness noted left hip Neuro: COMMON NORMALS: patient oriented x3, moves all extremities and no focal motor deficits Psych: COMMON NORMALS: mental status grossly normal, Normal thought process present and cooperative THOUGHT PROCESS: Normal thought process present Skin: COMMON NORMALS: no rashes or lesions noted and no wounds GENERAL SKIN EXAM: no rashes or lesions noted Course Vital Signs: Vital signs: Vital Signs Temperature 97.6 F 07/15/23 21:08 Pulse Rate 141 H 07/15/23 21:45 Respiratory Rate 16 07/15/23 21:08 Blood Pressure 156/121 07/15/23 21:08 Pulse Oximetry 93 07/15/23 21:08 Oxygen Delivery Me thod Nasal Cannula 07/15/23 21:45 Oxygen Flow Rate 1 07/15/23 21:45 MDM - Extremity (Nontraumatic) Medical Decision Making Patient presents with left hip fracture from a fall she also with history A-fib was in A-fib with RVR and heart rates now in the 80s after Carly did speak to hospitalist along with surgeon and will admit at this time Medical Records I reviewed the patient's medical records. Lab Data I reviewed the patient's lab results. 07/15/23 21:19 07/15/23 22:03 Laboratory Results WBC 8.86 10^3/uL (3.29-11.43) 07/15/23 21:19 RBC 4.42 10^6/uL (3.85-5.65) 07/15/23 21:19 Hgb 13.30 g/dL (11.27-16.99) 07/15/23 21:19 Hct 41.0 % (36-47) 07/15/23 21:19 MCV 92.8 fl (85-98) 07/15/23 21:19 MCH 30.1 pg (27-33) 07/15/23 21:19 MCHC 32.4 g/dL (30-55) 07/15/23 21:19 RDW 13.9 % (12.1-15.1) 07/15/23 21:19 Plt Count 206 10^3/cmm (157-399) 07/15/23 21:19 MPV 10.0 fL (7.4-10.4) 07/15/23 21:19 Neut % (Auto) 67.5 % 07/15/23 21:19 Lymph % (Auto) 21.6 % 07/15/23 21:19 [place] % (Auto) 8.8 % 07/15/23 21:19 Eos % (Auto) 1.4 % 07/15/23 21:19 Baso % (Auto) 0.2 % 07/15/23 21:19 Neut # (Auto) 5.99 10^3/uL (1.8-7.7) 07/15/23 21:19 Lymph # (Auto) 1.9 10^3/uL (0.8-4.8) 07/15/23 21:19 [place] # (Auto) 0.8 10^3/uL (0.2-0.9) 07/15/23 21:19 Eos # (Auto) 0.1 10^3/uL (0.0-0.8) 07/15/23 21:19 Baso # (Auto) 0.0 10^3/uL (0.0-0.1) 07/15/23 21:19 Nucleated RBC % (auto) 0 % 07/15/23 21:19 Nucleated RBCs # 0.0 /100WBC 07/15/23 21:19 PT 16.10 SECONDS (12.1-14.9) H 07/15/23 21:19 INR 1.25 (0.8-1.2) H 07/15/23 21:19 Sodium Cancelled 07/15/23 21:19 Potassium Cancelled 07/15/23 21:19 Chloride Cancelled 07/15/23 21:19 Carbon Dioxide Cancelled 07/15/23 21:19 Anion Gap Cancelled 07/15/23 21:19 BUN Cancelled 07/15/23 21:19 Creatinine Cancelled 07/15/23 21:19 GFR Calculation Cancelled 07/15/23 21:19 Glucose Cancelled 07/15/23 21:19 Calculated Osmolality Cancelled 07/15/23 21:19 Calcium Cancelled 07/15/23 21:19 Total Bilirubin Cancelled 07/15/23 21:19 AST Cancelled 07/15/23 21:19 ALT Cancelled 07/15/23 21:19 Alkaline Phosphatase Cancelled 07/15/23 21:19 Total Protein Cancelled 07/15/23 21:19 Albumin Cancelled 07/15/23 21:19 Globulin Cancelled 07/15/23 21:19 All radiology interpretation(s) finalized by discharge EKG Data EKG 1: I personally reviewed and interpreted this EKG as follows: EKG interpretation date: 07/15/23 EKG interpretation time: 21:39 Interpretation: afib hr [address] or t wave abnormalities qrs 81 qtc 353 Discharge Plan Discharge Patient Disposition: Admitted As Inpatient Clinical Impression: Fracture of hip, Atrial fibrillation with rapid ventricular response Condition: Stable Prescriptions: No Action ascorbic acid (vitamin C) 1,000 mg tablet 500 mg PO DAILY One-A-Day Women's 50 Plus 400-20 mcg tablet 1 tab PO DAILY metoprolol succinate 25 mg tablet extended release 24 hr 25 mg PO DAILY Qty: 90 3RF rivaroxaban 15 mg tablet 15 mg PO DAILY@04 Qty: 90 0RF Rx Instructions: Must make an appointment for further refills furosemide 20 mg tablet 20 mg PO DAILY@04 nitroglycerin 0.4 mg tablet, sublingual 0.4 mg sublingual Q5MIN PRN (Reason: Chest Pain) albuterol sulfate 90 mcg/actuation HFA aerosol inhaler 2 puff INHALATION Q6H PRN (Reason: Shortness Of Breath) pantoprazole 40 mg tablet,delayed release (DR/EC) 40 mg PO BID Qty: 0 0RF Referrals: Sid Banerjee DO [Primary Care Provider] - Coding Level of Care Code ED Cable Engineer Outside Plant for [facility]
[2023-07-15] MEDS: HYDROmorphone 1 mg/mL INJ 1 mL 0.5 MG IVP (21:33)
[2023-07-15] MEDS: ondansetron 2 mg/ML SDV 2 mL 4 MG IVP (21:33)
[2023-07-15] MEDS: dilTIAZem 5 mg/mL SDV 5 mL 15 MG IVP (21:44)
[2023-07-15 21:45] VITALS: PULSE 141
[2023-07-15 21:51] LABS: Basophils % 0.2 %; Eosinophils # 0.1 10^3/uL (0.0-0.8); Eosinophils % 1.4 %; Lymphocytes # 1.9 10^3/uL (0.8-4.8); Lymphocytes % 21.6 %; Mean Corpuscular HGB Conc 32.4 g/dL (30-55); Mean Corpuscular Hemoglobin 30.1 pg (27-33); Mean Corpuscular Volume 92.8 fl (85-98); Monocytes # 0.8 10^3/uL (0.2-0.9); Monocytes % 8.8 %; Neutrophils # 5.99 10^3/uL (1.8-7.7); Neutrophils % 67.5 %; Nucleated Red Blood Cells % 0 %; Platelet Count 206 10^3/cmm (157-399); Red Blood Count 4.42 10^6/uL (3.85-5.65); Red Cell Distribution Width 13.9 % (12.1-15.1); White Blood Count 8.86 10^3/uL (3.29-11.43)
[2023-07-15 22:10] LABS: INR 1.25 (0.8-1.2)
[2023-07-15 22:26] LABS: Alanine Aminotransferase 11 U/L (0-33); Albumin Level 3.5 g/dL (3.5-5.2); Alkaline Phosphatase 121 U/L (35-105); Anion Gap 17.6 (5-19); Aspartate Amino Transferase 17 U/L (0-32); Blood Urea Nitrogen 24 mg/dL (8-23); Calcium 8.9 mg/dL (8.5-10.5); Carbon Dioxide 22 mmol/L (22-29); Chloride 102 mmol/L (98-107); Creatinine Clr Calc Pharmacy 46.2314; Globulin 3.9 g/dL (1.3-4.6); Glucose 127 mg/dL (65-115); Osmolality Calculated 290 mOsm/kg (285-295); Potassium 4.6 mmol/L (3.5-5.1); Sodium 137 mmol/L (136-145); Total Bilirubin 0.4 mg/dL (0.15-1.2); Total Protein 7.4 g/dL (6.6-8.7)
--- NOTE | 2023-07-15 22:38 | P.HP_ITS ---
Providers/Chief Complaint 2 Primary Care Provider: Sid Banerjee DO Chief Complaint: HIP PAIN History of Present Illness Almita Woodward is a 88 year old female with a past medical history significant for colon cancer, uterine cancer, multiple pulmonary nodules suspicious for metastatic disease, atrial fibrillation on Xarelto, transient ischemic attack, hypertension, and GERD who presents emergency department with mechanical fall. Patient was outside today when she stood up and fell down onto concrete. Daughter is bedside reports she hit the ground fairly hard. Her daughter does live with her and aids in her care. Patient currently rates her pain 10 out of 10 with movement. 0 out of 10 without movement. Movement exacerbates her pain. Rest improves. Denies other complaints. Denies other alleviating or aggravating factors. Family reports prior to the fall, patient was very functional. She continued to mow her own yard up until this fall. In the emergency department, she was found to have A-fib with RVR. She was given Cardizem. Imaging revealed left-sided hip fracture. Orthopedic surgery consulted. Review of Systems 2 Narrative: A complete review of systems was obtained and is negative except as stated in HPI. Medications/Allergies Home Medications Medication Instructions Recorded Confirmed Last Taken Type furosemide 20 mg tablet 20 mg PO DAILY@04 01/15/20 11/04/22 10/25/22 History metoprolol succinate 25 mg 25 mg PO DAILY #90 tabs 08/18/20 11/04/22 10/26/22 Rx tablet,extended release 24 hr ascorbic acid (vitamin C) 1,000 mg 500 mg PO DAILY 09/24/20 11/04/22 10/26/22 History tablet vxorunzfgjvn-zjbidlvw-nagmnas-folic 1 tab PO DAILY 09/24/20 11/04/22 10/26/22 History acid 400 mcg-vit K1 20 mcg tablet (One-A-Day Women's 50 Plus) albuterol sulfate 90 mcg/actuation 2 puff inhalation Q6H PRN 04/10/21 11/04/22 Unknown History aerosol inhaler Shortness Of Breath nitroglycerin 0.4 mg sublingual 0.4 mg sublingual Q5MIN PRN Chest 04/10/21 11/04/22 Unknown History tablet Pain pantoprazole 40 mg tablet,delayed 40 mg PO BID #0 tabs 03/05/22 09/29/23 09/20/23 Rx release rivaroxaban 15 mg tablet 15 mg PO DAILY@04 #90 tabs 12/23/21 11/04/22 10/26/22 Rx Allergies Allergy/AdvReac Type Severity Reaction Status Date / Time aspirin Allergy Unconscious Verified 11/04/22 15:16 PFSH Acute 2 PFSH: Medical History Hyperlipidemia HTN (hypertension) Urinary incontinence GERD (gastroesophageal reflux disease) Atrial fibrillation Hx of transient cerebral ischemia Surgical History History of hysterectomy Family History Other CAD (coronary artery disease) Cancer Diabetes Denies family history of Anesthesia complication Bleeding disorder Social History Smoking and tobacco/nicotine status: never used tobacco/nicotine Alcohol intake: never Substance/Drug Use: never Vitals/I&O/Wt Last Vital Signs Temp 97.6 F 07/15/23 21:08 Pulse 141 H 07/15/23 21:45 Resp 16 07/15/23 21:08 BP 156/121 07/15/23 21:08 Pulse Ox 93 07/15/23 21:08 O2 Del Method Nasal Cannula 07/15/23 21:45 O2 Flow Rate 1 07/15/23 21:45 Weight last 48 hrs Weight 90.718 kg Physical Exam 2 Narrative: General: Patient is awake and alert. Head: Normocephalic. Atraumatic. EOM intact. Neck: No JVD. Cardiovascular: No gallops. No murmurs. No peripheral edema. Irregularly irregular rhythm. Normal rate. Lungs: Clear to auscultation, no use of accessory muscles, no crackles or wheezes. Skin: No jaundice. No rashes. Abdomen: Normal bowel sounds, abdomen soft and nontender. Genito Urinary: Hilton catheter Rectal: Rectal exam not performed since no symptoms indicated blood loss. Extremities: No cyanosis or clubbing. Musculoskeletal: No swollen or erythematous joints. Neurological: No myoclonus. Lower extremities are neurovascularly intact. Data 07/15/23 21:19 07/15/23 22:03 A&P Assessment and plan (1) Fracture of hip: Acute left subcapital impacted displaced hip fracture secondary to mechanical fall Bedrest Hilton Type and screen Hold Xarelto Orthopedic surgery consulted, anticipate possible fixation on Monday or Monday N.p.o. after midnight Multimodal pain control Bowel regiment PT/OT after surgery Anticipate postacute care needs Qualifiers: Encounter type: initial encounter Fracture type: closed Laterality: l eft Qualified Code(s): S72.002A - Fracture of unspecified part of neck of left femur, initial encounter for closed fracture (2) Atrial fibrillation with rapid ventricular response: A-fib with RVR likely exacerbated by severe pain Ensure adequate pain control Status post Cardizem IV in ED Continue metoprolol Hold Xarelto in anticipation of surgery Telemetry monitoring Monitor electrolytes (3) GERD (gastroesophageal reflux disease): Continue PPI (4) Hyperlipidemia: Diet controlled Qualifiers: Hyperlipidemia type: mixed hyperlipidemia Qualified Code(s): E78.2 - Mixed hyperlipidemia (5) TIA (transient ischemic attack): Monitor neurostatus Plan DVT prophylaxis: SCD, residual effects of Xarelto present Attestations 2 Medical Necessity Statement*: Patient presents with mechanical fall, found to have left-sided hip fracture which required surgical intervention; also found to have atrial fibrillation with fast ventricular rate; expected hospitalization to cross 2 midnights for surgical fixation, control of heart rate, therapy, and supportive care. Coding Level of Care Code Acute Code for Chg Fwd Diagnoses Fracture of hip S72.002A Encounter type: initial encounter Fracture type: closed Laterality: left Atrial fibrillation with rapid ventricular response I48.91 Gastroesophageal reflux disease, unspecified whether esophagitis present K21.9 Mixed hyperlipidemia E78.2 Hyperlipidemia type: mixed hyperlipidemia TIA (transient ischemic attack) G45.9
[2023-07-15 23:09] VITALS: BP 160/73; PULSE 86; RESP 18; O2SAT 95
[2023-07-15 23:59] VITALS: BP 175/74; PULSE 100; RESP 19; TEMP 36.6; O2SAT 93
[2023-07-16] VITALS (12 sets, daily range): BP systolic 113–132; BP diastolic 67–84; PULSE 65–92; RESP 15–18; TEMP 36.4–37.2; O2SAT 91–95
[2023-07-16] MEDS: dextrose 5%-sod chloride 0.45% 1,000 ML 75 ML IV ×2 (00:07→13:26)
[2023-07-16] MEDS: HYDROmorphone 1 mg/mL INJ 1 mL 0.5 MG IVP ×2 (00:09→06:05)
[2023-07-16 03:35] LABS: Basophils % 0.1 %; Lymphocytes # 1.2 10^3/uL (0.8-4.8); Lymphocytes % 12.5 %; Mean Corpuscular HGB Conc 32.6 g/dL (30-55); Mean Corpuscular Hemoglobin 29.8 pg (27-33); Mean Corpuscular Volume 91.3 fl (85-98); Mean Platelet Volume 10.3 fL (7.4-10.4); Monocytes # 0.5 10^3/uL (0.2-0.9); Monocytes % 5.1 %; Neutrophils # 7.85 10^3/uL (1.8-7.7); Neutrophils % 81.9 %; Nucleated Red Blood Cells % 0 %; Platelet Count 197 10^3/cmm (157-399); Red Blood Count 4.16 10^6/uL (3.85-5.65); Red Cell Distribution Width 13.8 % (12.1-15.1); White Blood Count 9.59 10^3/uL (3.29-11.43)
[2023-07-16 03:53] LABS: Anion Gap 17.5 (5-19); Blood Urea Nitrogen 22 mg/dL (8-23); Calcium 8.7 mg/dL (8.5-10.5); Carbon Dioxide 24 mmol/L (22-29); Chloride 102 mmol/L (98-107); Creatinine Clr Calc Pharmacy 52.0104; Glucose 172 mg/dL (65-115); Magnesium 1.8 mg/dL (1.7-2.3); Osmolality Calculated 295 mOsm/kg (285-295); Phosphorus 4.4 mg/dL (2.5-4.5); Potassium 4.5 mmol/L (3.5-5.1); Sodium 139 mmol/L (136-145)
[2023-07-16] MEDS: pantoprazole DR 40 mg Tablet PO ×2 (07:37→17:14)
[2023-07-16] MEDS: metoprolol succinate ER (24 HR) 25 mg Tablet PO (07:37)
--- NOTE | 2023-07-16 10:11 | P.PN_ITS ---
Subjective 2 Subjective: Patient stating that she took Xarelto yesterday around 9 AM in the morning She is n.p.o. Will touch with Dr. Ott to see if he is going to operate today versus tomorrow Hemodynamically stable Not complain of significant pain at rest Hilton catheter in place Vitals/I&O/Wt Last Vital Signs Temp 98.1 F 07/16/23 07:26 Pulse 83 07/16/23 08:16 Resp 16 07/16/23 08:16 BP 113/67 07/16/23 07:26 Pulse Ox 95 07/16/23 08:16 O2 Del Method Room Air 07/16/23 08:16 O2 Flow Rate 1 07/15/23 21:45 Weight last 48 hrs Weight 63.367 kg Weight 90.718 kg Physical Exam 2 Narrative: Clinically dehydrated GCS 15 Nonfocal neuroexam Hemodynamic stable Hilton catheter in place 1, S2 Urinary Catheter Management: Hilton: Cath Placed During This Visit: yes Urinary Catheter Date of Insertion: 07/15/23 Urinary Catheter Time of Insertion: 22:51 Data 07/16/23 02:33 07/16/23 02:33 A&P Assessment and plan (1) Fracture of hip: Acute left subcapital impacted displaced hip fracture secondary to mechanical fall Hilton catheter has been placed Pain well-managed Patient is n.p.o. Took Xarelto yesterday in the morning Will touch base with orthopedics Qualifiers: Encounter type: initial encounter Fracture type: closed Laterality: l eft Qualified Code(s): S72.002A - Fracture of unspecified part of neck of left femur, initial encounter for closed fracture (2) Atrial fibrillation with rapid ventricular response: A-fib without RVR this morning Heart rate well-controlled (3) GERD (gastroesophageal reflux disease): Continue PPI (4) Hyperlipidemia: Diet controlled Qualifiers: Hyperlipidemia type: mixed hyperlipidemia Qualified Code(s): E78.2 - Mixed hyperlipidemia (5) TIA (transient ischemic attack): Monitor neurostatus Plan DVT prophylaxis: SCD, residual effects of Xarelto present Patient is stating that she would like to go home with home health services, she lives with her daughter, she does have a walker with a platform Attestations 2 Medical Necessity Statement*: Continue medical management Diagnoses Fracture of hip S72.002A Encounter type: initial encounter Fracture type: closed Laterality: left Atrial fibrillation with rapid ventricular response I48.91 Gastroesophageal reflux disease, unspecified whether esophagitis present K21.9 Mixed hyperlipidemia E78.2 Hyperlipidemia type: mixed hyperlipidemia TIA (transient ischemic attack) G45.9
--- NOTE | 2023-07-16 12:07 | CTR_ITS ---
PROCEDURE INFORMATION: Exam: CT Left Lower Extremity Without Contrast, Hip Exam date and time: 07/16/2023 1:06 PM Age: 88 years old Clinical indication: Injury or trauma; Fall; Blunt trauma; Hip; Left; Additional info: Fracture TECHNIQUE: Imaging protocol: CT of the left lower extremity without contrast was performed. Exam focused on the hip. Axial, coronal and sagittal reformatted images were created and reviewed. Radiation optimization: All CT scans at this facility use at least one of these dose optimization techniques: automated exposure control; mA and/or kV adjustment per patient size (includes targeted exams where dose is matched to clinical indication); or iterative reconstruction. COMPARISON: CR (PELVIS, ) 07/15/2023 9:23 PM RADIATION DOSE METRICS: Total DLP (mGy-cm): 274.87 FINDINGS: Tubes, catheters and devices: Hilton catheter in place. Bones/joints: Osteopenia. Minimally comminuted, mildly displaced subcapital fracture of the femoral neck with apex anterior and varus angulation at the fracture site. No dislocation. 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 Degenerative changes of the left sacroiliac joint and pubic symphysis. No erosive or destructive change. No lytic or blastic lesion. Small left hip joint lipohemarthrosis. Soft tissues: Normal. Vasculature: Dense vascular calcifications. CT/CT hip LT wo con* [id number] IMPRESSION: 1. Left femoral neck fracture, as described above. 2. Additional findings, as above.
--- NOTE | 2023-07-16 12:34 | P.CONIM_ITS ---
Providers/Reason For Consult 2 Consulting Physician/Specialty*: Hospitalist Reason for Consult*: Left hip fracture Attending Physician: Hailey Lujan MD Primary Care Provider: Sid Banerjee DO History of Present Illness History of Present Illness Almita Woodward is a 88 year old female who fell and sustained a left femoral neck fracture. However the x-rays are not degrees quality. This point going to get a CT scan of her hip to determine that this is truly a femoral neck fracture versus intertrochanteric hip fracture Review of Systems 2 Const: Denies: fever(s), chills, body aches or change in appetite ENMT: Denies: throat pain or dental pain Card: Denies: chest pain Resp: Denies: dyspnea GI: Denies: abdominal pain, nausea, vomiting or diarrhea Musc: Reports: extremity pain; Denies: neck pain or back pain Skin/Breast: Denies: rash Neuro: Denies: headache(s) Medications/Allergies Home Medications Medication Instructions Recorded Confirmed Last Taken Type furosemide 20 mg tablet 20 mg PO DAILY@04 01/15/20 07/16/23 07/15/23 History metoprolol succinate 25 mg 25 mg PO DAILY #90 tabs 08/18/20 07/16/23 07/14/23 Rx tablet,extended release 24 hr ascorbic acid (vitamin C) 1,000 mg 500 mg PO DAILY 09/24/20 07/16/23 07/15/23 History tablet atsqwcivwhvb-aowttkfk-grgglus-folic 1 tab PO DAILY 09/24/20 07/16/23 07/15/23 History acid 400 mcg-vit K1 20 mcg tablet (One-A-Day Women's 50 Plus) albuterol sulfate 90 mcg/actuation 2 puff inhalation Q6H PRN 04/10/21 07/16/23 Unknown History aerosol inhaler Shortness Of Breath nitroglycerin 0.4 mg sublingual 0.4 mg sublingual Q5MIN PRN Chest 04/10/21 07/16/23 Unknown History tablet Pain pantoprazole 40 mg tablet,delayed 40 mg PO BID #0 tabs 04/10/21 07/16/23 07/15/23 Rx release rivaroxaban 15 mg tablet 15 mg PO DAILY@04 #90 tabs 12/23/21 07/16/23 07/15/23 Rx Allergies Allergy/AdvReac Type Severity Reaction Status Date / Time aspirin Allergy Unconscious Verified 11/04/22 15:16 Current Medications Generic Name Dose Route Start Last Admin Trade Name Freq PRN Reason Stop Dose Admin Hydromorphone HCl 0.5 mg 07/15/23 23:20 07/16/23 06:05 Hydromorphone 1 Mg/Ml Inj 1 Ml IVP 0.5 mg Q2H PRN Administration SEVERE PAIN Dextrose/Sodium Chloride 1,000 mls @ 75 mls/hr 07/15/23 23:20 07/16/23 00:07 Dextrose 5%-Sod Chloride 0.45% IV 75 mls/hr .[id number] VIELKA Administration Metoprolol Succinate 25 mg 07/16/23 09:00 07/16/23 07:37 Metoprolol Succinate Er (24 Hr) 25 Mg Tablet PO 25 mg DAILY VIELKA Administration Pantoprazole Sodium 40 mg 07/16/23 09:00 07/16/23 07:[address] 40 Mg Tablet PO 40 mg BID VIELKA Administration Senna 17.2 mg 07/16/23 09:00 07/16/23 07:37 Sennosides 8.6 Mg Tablet PO Not Given BID VIELKA PFSH Acute 2 PFSH: Medical History Hyperlipidemia HTN (hypertension) Urinary incontinence GERD (gastroesophageal reflux disease) Atrial fibrillation Hx of transient cerebral ischemia Surgical History History of hysterectomy Family History Other CAD (coronary artery disease) Cancer Diabetes Denies family history of Anesthesia complication Bleeding disorder Social History Smoking and tobacco/nicotine status: never used tobacco/nicotine Alcohol intake: never Substance/Drug Use: never Vitals/I&O/Wt Last Vital Signs Temp 98.3 F 07/16/23 12:00 Pulse 82 07/16/23 12:00 Resp 18 07/16/23 12:00 BP 132/76 07/16/23 12:00 Pulse Ox 95 07/16/23 12:00 O2 Del Method Room Air 07/16/23 12:00 O2 Flow Rate 1 07/15/23 21:45 Weight last 48 hrs Weight 139 lb 11.2 oz Weight 200 lb Physical Exam 2 Narrative: Patient is comfortable in bed. Pain is controlled Urinary Catheter Management: Hilton: Cath Placed During This Visit: yes Urinary Catheter Date of Insertion: 07/15/23 Urinary Catheter Time of Insertion: 22:51 Data 07/16/23 02:33 07/16/23 02:33 A&P Assessment and plan (1) Fracture of hip: Left femoral neck fracture. Plan to do hemiarthroplasty tomorrow. Qualifiers: Encounter type: initial encounter Fracture type: closed Laterality: l eft Qualified Code(s): S72.002A - Fracture of unspecified part of neck of left femur, initial encounter for closed fracture Coding Level of Care Code Acute Code for Chg Fwd Diagnoses Fracture of hip S72.002A Encounter type: initial encounter Fracture type: closed Laterality: left
[2023-07-16] MEDS: ondansetron 2 mg/ML SDV 2 mL 4 MG IVP (13:25)
[2023-07-16] MEDS: HYDROcodone-acetaminophen 5-325 mg Tablet 1 TAB PO (15:34)
--- NOTE | 2023-07-16 15:46 | CTR_ITS ---
PROCEDURE INFORMATION: Exam: CT Head Without Contrast Exam date and time: 07/16/2023 4:08 PM Age: 88 years old Clinical indication: Injury or trauma; Fall; Blunt trauma (contusions or hematomas); Without loss of consciousness; Additional info: Fall, hit head TECHNIQUE: Imaging protocol: Computed tomography of the head without contrast. Axial, coronal and sagittal reformatted images were created and reviewed. Radiation optimization: All CT scans at this facility use at least one of these dose optimization techniques: automated exposure control; mA and/or kV adjustment per patient size (includes targeted exams where dose is matched to clinical indication); or iterative reconstruction. COMPARISON: CT head wo con* [id number] 11/04/2022 4:54 PM RADIATION DOSE METRICS: Total DLP (mGy-cm): 982.18 FINDINGS: Brain: Patchy areas of hypoattenuation in the periventricular and subcortical white matter, consistent with chronic small vessel ischemic disease. Focal, well-circumscribed hypodensities in the basal ganglia, consistent with chronic lacunar infarcts. No CT evidence of acute intracranial hemorrhage or acute territorial infarction. No significant mass effect or midline shift. Basal cisterns patent. Cerebral ventricles: Prominence of the cortical sulci, cisterns and ventricular system, consistent with cerebral and cerebellar volume loss. Paranasal sinuses: Mild ethmoid and left frontal sinus mucosal thickening. No fluid levels. Mastoid air cells: Grossly unremarkable. Bones: Unremarkable. No acute fracture. Soft tissues: Grossly unremarkable. Vasculature: Calcific atherosclerotic disease in the cavernous internal carotid arteries, as well as the vertebro-basilar system. CT/CT head wo con* [id number] IMPRESSION: 1. No CT evidence of acute intracranial pathology. 2. Additional findings, as above.
[2023-07-16] MEDS: sennosides 8.6 mg Tablet 17.1999999999999993 MG PO (17:14)
[2023-07-17] VITALS (17 sets, daily range): BP systolic 100–153; BP diastolic 53–76; PULSE 74–87; RESP 14–18; TEMP 36.4–38.1; O2SAT 91–99
[2023-07-17] MEDS: dextrose 5%-sod chloride 0.45% 1,000 ML 75 ML IV ×2 (02:04→17:50)
[2023-07-17] MEDS: HYDROmorphone 1 mg/mL INJ 1 mL 0.5 MG IVP (03:01)
[2023-07-17 05:57] LABS: Basophils % 0.2 %; Eosinophils # 0.1 10^3/uL (0.0-0.8); Eosinophils % 1.6 %; Hematocrit 35.8 % (36-47); Lymphocytes # 1.3 10^3/uL (0.8-4.8); Lymphocytes % 15.4 %; Mean Corpuscular HGB Conc 33.2 g/dL (30-55); Mean Corpuscular Hemoglobin 30.1 pg (27-33); Mean Corpuscular Volume 90.4 fl (85-98); Mean Platelet Volume 9.9 fL (7.4-10.4); Monocytes # 0.7 10^3/uL (0.2-0.9); Neutrophils # 6.19 10^3/uL (1.8-7.7); Neutrophils % 74.6 %; Nucleated Red Blood Cells % 0 %; Platelet Count 179 10^3/cmm (157-399); Red Blood Count 3.96 10^6/uL (3.85-5.65); Red Cell Distribution Width 13.6 % (12.1-15.1)
[2023-07-17 06:17] LABS: Anion Gap 12.2 (5-19); Blood Urea Nitrogen 11 mg/dL (8-23); Calcium 8.2 mg/dL (8.5-10.5); Carbon Dioxide 25 mmol/L (22-29); Chloride 99 mmol/L (98-107); Creatinine Clr Calc Pharmacy 44.0496; Glucose 142 mg/dL (65-115); Osmolality Calculated 276 mOsm/kg (285-295); Potassium 4.2 mmol/L (3.5-5.1); Sodium 132 mmol/L (136-145)
--- NOTE | 2023-07-17 09:16 | PC.CHAP ---
Pastoral Care Encounter/Spiritual Assessment Type of Contact [] Declined phototypesetter operator visit [] Patient/Family/Request visit [] Outpatient visit [] Follow-up visit [] Physician referral [] Code/Alert [x] Routine visit [] Staff referral [] Actively dying [x] Patient sleeping [] Family support [] [] Out of room [] Palliative care [] [] Receiving care in room [] Pre-surgical visit [] Trauma [] Long length of stay [] ICU visit [] Other: Relational/Emotional Strength [] Patient feels connected with others/family/visitors/staff [] Distress [] Loneliness/isolation [] Abandonment Spirituality of Patient [] Person of Miranda [] Attends Temple of their [place] [] Believes in Prayer [] Reads Bible or Alevism materials [] There are Spiritual issues to be addressed Wire Machine Cutter Interventions [x] Prayer [] Active listening [] Non-anxious presence [] Spiritual/emotional support [] Crisis/trauma care [] Spiritual counseling [] Bereavement support [] Provided bereavement packet [] Provided Bible/devotional materials [] Provided toy/stuffed animal, coloring book to patient or family member [] Provided Communion [] Anointing/[place] [] Salvation [] Completed spiritual assessment [] Other: Impact on Illness or Injury [] Angry [] Fearful [] Anxious [] Often cries [] Exhaustion [] Unable to work [] Unable to attend adventist [] Unable to walk/stand [] Unable to read [] Unable to drive [] Unable to eat/drink [] Unable to sleep [] Unable to be with family [] Patient intubated [] Other: Summary Time spent with patient
[2023-07-17] MEDS: metoprolol succinate ER (24 HR) 25 mg Tablet PO (09:31)
--- NOTE | 2023-07-17 11:24 | P.PN_ITS ---
Subjective 2 Subjective: Patient is n.p.o. No active pain She is not complaining of any active discomfort Pleasant and very communicative In good spirits Plan for surgery today Vitals/I&O/Wt Last Vital Signs Temp 98.5 F 07/17/23 11:21 Pulse 87 07/17/23 11:21 Resp 16 07/17/23 11:21 BP 153/72 07/17/23 11:21 Pulse Ox 93 07/17/23 11:21 O2 Del Method Room Air 07/17/23 11:21 O2 Flow Rate 1 07/15/23 21:45 07/16/23 07/17/23 07/17/23 22:59 06:59 14:59 Intake Total 712 / 1710.75 947.5 / 2658.25 Output Total 200 / 2150 300 / 2450 Balance 512 / -439.25 647.5 / 208.25 Weight last 48 hrs Weight 64.274 kg Weight 63.367 kg Weight 90.718 kg Physical Exam 2 Narrative: Awake and alert Signs of dehydration present Talkative Nonfocal neuroexam GCS 15 S1, S2 Active pain Hemodynamically stable Currently on room air Hilton catheter in place Urinary Catheter Management: Hilton: Cath Placed During This Visit: yes Urinary Catheter Date of Insertion: 07/15/23 Urinary Catheter Time of Insertion: 22:51 Data 07/17/23 05:35 07/17/23 05:35 A&P Assessment and plan (1) Fracture of hip: Acute left subcapital impacted displaced hip fracture secondary to mechanical fall Hilton catheter has been placed Going for surgery today Qualifiers: Encounter type: initial encounter Fracture type: closed Laterality: l eft Qualified Code(s): S72.002A - Fracture of unspecified part of neck of left femur, initial encounter for closed fracture (2) Atrial fibrillation with rapid ventricular response: A-fib without RVR this morning Heart rate well-controlled (3) GERD (gastroesophageal reflux disease): Continue PPI (4) Hyperlipidemia: Diet controlled Qualifiers: Hyperlipidemia type: mixed hyperlipidemia Qualified Code(s): E78.2 - Mixed hyperlipidemia (5) TIA (transient ischemic attack): Monitor neurostatus Plan DVT prophylaxis: SCD, will start Xarelto 6 hours after surgery Patient is stating that she would like to go home with home health services, she lives with her daughter, she does have a walker with a platform Will decide after surgery when we do physical therapy evaluation Attestations 2 Medical Necessity Statement*: Continue medical management Diagnoses Fracture of hip S72.002A Encounter type: initial encounter Fracture type: closed Laterality: left Atrial fibrillation with rapid ventricular response I48.91 Gastroesophageal reflux disease, unspecified whether esophagitis present K21.9 Mixed hyperlipidemia E78.2 Hyperlipidemia type: mixed hyperlipidemia TIA (transient ischemic attack) G45.9
--- NOTE | 2023-07-17 13:48 | PC.NURSE ---
patient wheeled off unit via bed to surgery by RIKKI Duron.
--- NOTE | 2023-07-17 14:01 | PC.SOCIAL ---
IMM updated IMM dated and given to patient, copy placed in chart.
--- NOTE | 2023-07-17 14:19 | P.ANESASSM_ITS ---
Pre-Anesthetic Assessment Height/Weight: Height 1.63 m Weight 64.274 kg Temp Pulse Resp BP Pulse Ox O2 Del Method O2 Flow Rate 98.5 F 87 16 153/72 93 Room Air 1 07/17/23 11:21 07/17/23 11:21 07/17/23 11:21 07/17/23 11:21 07/17/23 11:21 07/17/23 13:58 07/15/23 21:45 Operation Date: 07/17/23 17:00 Proposed Procedures p Hemiarthroplasty Hip(Left) - David Ott DO Familial anesthetic complications: none Was Beta Tamiko taken within 24 hours: Yes Was Clonidine taken within 24 hours: N/A Last intake: Intake Last Liquid Date 07/16/23 Last Liquid Time 20:00 Last Solid Date 07/16/23 Last Solid Time 18:00 Social No alcohol and No tobacco Exam alert, oriented x 3 and clear to auscultation bilaterally Airway Submandibular: within normal limits Cervical ROM: within normal limits Mallampati: Class II Dentition: false CV/HEM Atrial Fibrillation and Hypertension [facility] Gastroesophageal Reflux Disease Metabolic Hyperlipidemia Anesthetic Plan ASA status: 3 Anesthesia: General Medications/Allergies Home Medications Medication Instructions Recorded Confirmed Last Taken Type furosemide 20 mg tablet 20 mg PO DAILY@04 01/15/20 07/16/23 07/15/23 History metoprolol succinate 25 mg 25 mg PO DAILY #90 tabs 08/18/20 07/16/23 07/14/23 Rx tablet,extended release 24 hr ascorbic acid (vitamin C) 1,000 mg 500 mg PO DAILY 09/24/20 07/16/23 07/15/23 History tablet rwtfcgordldr-vsnhyreg-nqvdxnj-folic 1 tab PO DAILY 09/24/20 07/16/23 07/15/23 History acid 400 mcg-vit K1 20 mcg tablet (One-A-Day Women's 50 Plus) albuterol sulfate 90 mcg/actuation 2 puff inhalation Q6H PRN 04/10/21 07/16/23 Unknown History aerosol inhaler Shortness Of Breath nitroglycerin 0.4 mg sublingual 0.4 mg sublingual Q5MIN PRN Chest 04/10/21 07/16/23 Unknown History tablet Pain pantoprazole 40 mg tablet,delayed 40 mg PO BID #0 tabs 04/10/21 07/16/23 07/15/23 Rx release rivaroxaban 15 mg tablet 15 mg PO DAILY@04 #90 tabs 12/23/21 07/16/23 07/15/23 Rx Allergies Allergy/AdvReac Type Severity Reaction Status Date / Time aspirin Allergy Unconscious Verified 11/04/22 15:16 Current Medications Generic Name Dose Route Start Last Admin Trade Name Freq PRN Reason Stop Dose Admin Hydrocodone Bitart/Acetaminophen 1 tab 07/15/23 23:20 07/16/23 15:34 Hydrocodone-Acetaminophen 5-325 Mg Tablet PO 1 tab Q4H PRN Administration Moderate Pain Hydromorphone HCl 0.5 mg 07/15/23 23:20 07/17/23 03:01 Hydromorphone 1 Mg/Ml Inj 1 Ml IVP 0.5 mg Q2H PRN Administration SEVERE PAIN Dextrose/Sodium Chloride 1,000 mls @ 75 mls/hr 07/15/23 23:20 07/17/23 02:04 Dextrose 5%-Sod Chloride 0.45% IV 75 mls/hr .[id number] VIELKA Administration Metoprolol Succinate 25 mg 07/16/23 09:00 07/17/23 09:31 Metoprolol Succinate Er (24 Hr) 25 Mg Tablet PO 25 mg DAILY VIELKA Administration Ondansetron HCl 4 mg 07/15/23 23:20 07/16/23 13:25 Ondansetron 2 Mg/Ml Sdv 2 Ml IVP 4 mg Q8H PRN Administration vomiting, or N/V if npo Pantoprazole Sodium 40 mg 07/16/23 09:00 07/17/23 09:[address] 40 Mg Tablet PO Not Given BID VIELKA Senna 17.2 mg 07/16/23 09:00 07/17/23 09:36 Sennosides 8.6 Mg Tablet PO Not Given BID VIELKA PFSH Anesthesia Medical History Hyperlipidemia HTN (hypertension) Urinary incontinence GERD (gastroesophageal reflux disease) Atrial fibrillation Hx of transient cerebral ischemia Surgical History History of hysterectomy Family History Other CAD (coronary artery disease) Cancer Diabetes Denies family history of Anesthesia complication Bleeding disorder Social History Smoking and tobacco/nicotine status: never used tobacco/nicotine Alcohol intake: never Substance/Drug Use: never Data Anesthesia 07/17/23 05:35 07/17/23 05:35 Short CBC 07/15/23 07/16/23 07/17/23 Range/Units 21:19 02:33 05:35 WBC 8.86 9.59 8.30 (3.29-11.43) 10^3/uL Hgb 13.30 12.40 11.90 (11.27-16.99) g/dL Hct 41.0 38.0 35.8 L (36-47) % MCV 92.8 91.3 90.4 (85-98) fl Plt Count 206 197 179 (157-399) 10^3/cmm Neut % (Auto) 67.5 81.9 74.6 % Neut # (Auto) 5.99 7.85 H 6.19 (1.8-7.7) 10^3/uL BMP 07/15/23 07/15/23 07/16/23 21:19 22:03 02:33 Sodium Cancelled 137 139 Potassium Cancelled 4.6 4.5 Chloride Cancelled 102 102 Carbon Dioxide Cancelled 22 24 BUN Cancelled 24 H 22 Creatinine Cancelled 0.9 0.8 Glucose Cancelled 127 H 172 H Calcium Cancelled 8.9 8.7 07/17/23 05:35 Sodium 132 L Potassium 4.2 Chloride 99 Carbon Dioxide 25 BUN 11 Creatinine 0.7 Glucose 142 H Calcium 8.2 L Liver Function 07/15/23 07/15/23 Range/Units 21:19 22:03 Total Bilirubin Cancelled 0.4 AST Cancelled 17 ALT Cancelled 11 Alkaline Phosphatase Cancelled 121 H Albumin Cancelled 3.5 Coags 07/15/23 21:19 PT 16.10 H INR 1.25 H Cardiac Studies: 2 Echocardiogram Ultrasound 04/27/20
[2023-07-17] MEDS: sodium chloride 0.9% 1,000 ML 30 ML IV (14:20)
--- NOTE | 2023-07-17 14:23 | W.PM.OPSUD ---
Surgery/Procedure H&P Update DATE OF PROCEDURE: July 17, 2023 DATE H&P PERFORMED: 07/16/23 H&P UPDATE INFORMATION: I have reviewed H&P completed within last 30 days, I have examined patient prior to procedure and No changes to prior documentation PLANNED PROCEDURE: Operation Date: 07/17/23 17:00 Proposed Procedures p Hemiarthroplasty Hip(Left) - David Ott DO
[2023-07-17] MEDS: ceFAZolin 2,000 MG in sodium chloride 0.9% (plus) 50 ML 100 MG IV ×2 (14:45→22:55)
--- NOTE | 2023-07-17 16:00 | PM.OP ---
Operative Report Date of procedure: July 17, 2023 Pre-op diagnosis: Left femoral neck fracture Post-op diagnosis: same Procedure done: Left hip hemiarthroplasty Surgeon: David Ott DO Estimated blood loss (mL): 50 Procedure: Left hip hemiarthroplasty Patient brought to the procedure after undergoing anesthesia placed in the left humerus position with left side up. All areas impingement well-padded. Patient's prepped and draped normal sterile fashion. Skin incision is made over the left lateral hip. IT band split modified Baldwin approach was used. The abductors and capsule were taken anteriorly. The femoral neck was cut fingerbreadth above the lesser trochanter. Next tension was brought to removing the femoral head. The femoral head was removed and measured to be 47. Attention was then brought to the femur. The dye box operator was used on the greater trochanter along with a canal finder and the lateralizer. The canal was broached to 7 and a size 7 Cristian stem was inserted. And a negative neck for neck length and 47 head were inserted. Hip was reduced felt to be stable in all ranges of motion leg lengths felt equal. Wounds were irrigated and closed in layered fashion the abductor and capsule were sewn together. Along with the IT band and the skin closed in layered fashion with 0 Vicryl 2-0 Vicryl and jasvir. Sterile dressings applied patient transferred the PACU in stable condition.
--- NOTE | 2023-07-17 17:23 | ANE.PACU2 ---
Inpatient post-anesthesia follow up: Airway intact: Yes Vital signs: Temperature 98.5 F Pulse Rate 81 Respiratory Rate 17 Blood Pressure 131/66 Pulse Oximetry 94 Oxygen Delivery Me thod Room Air Oxygen Flow Rate 6 Fraction of Inspir ed Oxygen Hydration adequate: Yes Nausea and vomiting: No Pain level: 2 Mental status: Baseline
[2023-07-17] MEDS: sennosides 8.6 mg Tablet 17.1999999999999993 MG PO (17:52)
[2023-07-17] MEDS: pantoprazole DR 40 mg Tablet PO (17:52)
[2023-07-18] VITALS (8 sets, daily range): BP systolic 102–132; BP diastolic 61–71; PULSE 70–95; RESP 16–18; TEMP 36.4–37.2; O2SAT 92–97
[2023-07-18 05:31] LABS: Eosinophils % 0.1 %; Hematocrit 37.3 % (36-47); Lymphocytes # 0.8 10^3/uL (0.8-4.8); Lymphocytes % 10.8 %; Mean Corpuscular HGB Conc 33.2 g/dL (30-55); Mean Corpuscular Hemoglobin 30.5 pg (27-33); Mean Corpuscular Volume 91.6 fl (85-98); Mean Platelet Volume 9.7 fL (7.4-10.4); Monocytes # 0.6 10^3/uL (0.2-0.9); Monocytes % 7.8 %; Neutrophils # 6.29 10^3/uL (1.8-7.7); Neutrophils % 80.9 %; Nucleated Red Blood Cells % 0 %; Platelet Count 174 10^3/cmm (157-399); Red Blood Count 4.07 10^6/uL (3.85-5.65); Red Cell Distribution Width 13.4 % (12.1-15.1); White Blood Count 7.78 10^3/uL (3.29-11.43)
[2023-07-18] MEDS: ceFAZolin 2,000 MG in sodium chloride 0.9% (plus) 50 ML 100 MG IV ×2 (05:31→14:19)
[2023-07-18 06:01] LABS: Anion Gap 12.3 (5-19); Blood Urea Nitrogen 10 mg/dL (8-23); Calcium 8.2 mg/dL (8.5-10.5); Carbon Dioxide 26 mmol/L (22-29); Chloride 102 mmol/L (98-107); Creatinine Clr Calc Pharmacy 45.1966; Glucose 163 mg/dL (65-115); Osmolality Calculated 285 mOsm/kg (285-295); Potassium 4.3 mmol/L (3.5-5.1); Sodium 136 mmol/L (136-145)
[2023-07-18] MEDS: HYDROcodone-acetaminophen 5-325 mg Tablet 1 TAB PO (09:16)
[2023-07-18] MEDS: metoprolol succinate ER (24 HR) 25 mg Tablet PO (09:16)
[2023-07-18] MEDS: pantoprazole DR 40 mg Tablet PO ×2 (09:16→17:26)
[2023-07-18] MEDS: sennosides 8.6 mg Tablet 17.1999999999999993 MG PO ×2 (09:17→17:26)
[2023-07-18] MEDS: dextrose 5%-sod chloride 0.45% 1,000 ML 75 ML IV (09:17)
--- NOTE | 2023-07-18 09:19 | PC.CHAP ---
Pastoral Care Encounter/Spiritual Assessment Type of Contact [] Declined spare person visit [] Patient/Family/Request visit [] Outpatient visit [] Follow-up visit [] Physician referral [] Code/Alert [x] Routine visit [] Staff referral [] Actively dying [] Patient sleeping [] Family support [] [] Out of room [] Palliative care [] [] Receiving care in room [] Pre-surgical visit [] Trauma [] Long length of stay [] ICU visit [] Other: Relational/Emotional Strength [x] Patient feels connected with others/family/visitors/staff [x] Distress [] Loneliness/isolation [] Abandonment Spirituality of Patient [x] Person of Miranda [] Attends Holiness of their Miranda [] Believes in Prayer [] Reads Bible or Synagogue materials [x] There are Spiritual issues to be addressed Inbound Telemarketer Interventions [x] Prayer [x] Active listening [x] Non-anxious presence [x] Spiritual/emotional support [] Crisis/trauma care [] Spiritual counseling [] Bereavement support [] Provided bereavement packet [] Provided Bible/devotional materials [] Provided toy/stuffed animal, coloring book to patient or family member [] Provided Communion [] Anointing/[place] [] Salvation [x] Completed spiritual assessment [] Other: Impact on Illness or Injury [] Angry [] Fearful [x] Anxious [] Often cries [] Exhaustion [] Unable to work [] Unable to attend zoroastrianism [] Unable to walk/stand [] Unable to read [] Unable to drive [] Unable to eat/drink [] Unable to sleep [] Unable to be with family [] Patient intubated [] Other: Summary Time spent with patient 10 min
--- NOTE | 2023-07-18 09:53 | PM.PN ---
Subjective Subjective: Pain control patient in room has worked with therapy yet. Vitals/I&O/Wt Last Vital Signs Temp 99.0 F 07/18/23 07:15 Pulse 79 07/18/23 08:20 Resp 16 07/18/23 08:20 BP 107/61 07/18/23 07:15 Pulse Ox 92 07/18/23 08:20 O2 Del Method Room Air 07/18/23 08:20 O2 Flow Rate 6 07/17/23 16:17 07/17/23 07/18/23 07/18/23 22:59 06:59 14:59 Intake Total 2100 / 2100 100 / 2200 1000 / 1000 Output Total 1225 / 1225 1000 / 2225 Balance 875 / 875 -900 / -25 1000 / 1000 Weight last 48 hrs Weight 150 lb 1.6 oz Weight 141 lb 11.2 oz Physical Exam Narrative: Patient resting in bed Urinary Catheter Management: Hilton: Cath Placed During This Visit: yes, but has since been removed by the nurse Reason for Continuing Indwelling Catheter: Required Immobilization for Trauma or Surgery or Anesthesia Urinary Catheter Date of Insertion: 07/15/23 Urinary Catheter Time of Insertion: 22:51 Date Urinary Catheter Removed: 07/18/23 Time Urinary Catheter Discontinued: 05:48 Data 07/18/23 05:14 07/18/23 05:14 A&P Assessment and plan (1) Fracture of hip: Postop day #1 left hip hemiarthroplasty Up with physical therapy Okay to start anticoagulation. Patient's daughter stated that she had some sort of cross reaction with a blood thinner before we will defer to hospitalist for the anticoagulation. Weight-bear as tolerated Qualifiers: Encounter type: initial encounter Fracture type: closed Laterality: left Qualified Code(s): S72.002A - Fracture of unspecified part of neck of left femur, initial encounter for closed fracture Attestations Medical Necessity Statement*: Per primary service Coding Level of Care Code [facility] Diagn[facility] Fracture of hip S72.002A Encounter type: initial encounter Fracture type: closed Laterality: left
--- NOTE | 2023-07-18 11:21 | P.PN_ITS ---
Subjective 2 Subjective: Patient will need correction She was eager to return home however physical therapy has recommended correction to be a safest disposition plan Patient is not confused Talkative however able to answer all questions appropriately Hemodynamically stable Currently on room air Vitals/I&O/Wt Last Vital Signs Temp 99.0 F 07/18/23 07:15 Pulse 79 07/18/23 08:20 Resp 16 07/18/23 08:20 BP 107/61 07/18/23 07:15 Pulse Ox 92 07/18/23 08:20 O2 Del Method Room Air 07/18/23 08:20 O2 Flow Rate 6 07/17/23 16:17 07/17/23 07/18/23 07/18/23 22:59 06:59 14:59 Intake Total 2100 / 2100 100 / 2200 1000 / 1000 Output Total 1225 / 1225 1000 / 2225 Balance 875 / 875 -900 / -25 1000 / 1000 Weight last 48 hrs Weight 68.084 kg Weight 64.274 kg Physical Exam 2 Narrative: Awake and alert Euvolemic GCS 15 Nonfocal neuroexam On room air Pleasant cooperative Hilton catheter discontinued Urinary Catheter Management: Hilton: Cath Placed During This Visit: yes, but has since been removed by the nurse Reason for Continuing Indwelling Catheter: Required Immobilization for Trauma or Surgery or Anesthesia Urinary Catheter Date of Insertion: 07/15/23 Urinary Catheter Time of Insertion: 22:51 Date Urinary Catheter Removed: 07/18/23 Time Urinary Catheter Discontinued: 05:48 Data 07/18/23 05:14 07/18/23 05:14 A&P Assessment and plan (1) Atrial fibrillation with rapid ventricular response: (2) GERD (gastroesophageal reflux disease): (3) Fracture of hip: Qualifiers: Encounter type: initial encounter Fracture type: closed Laterality: l eft Qualified Code(s): S72.002A - Fracture of unspecified part of neck of left femur, initial encounter for closed fracture Plan Postop day 1 No postoperative complication Hilton catheter discontinued Monitor urine output Patient is eating well Continue with PT Will look for correction placement Full code Add Eliquis to DVT prophylactic regimen Attestations 2 Medical Necessity Statement*: Continue medical management Diagnoses Atrial fibrillation with rapid ventricular response I48.91 Gastroesophageal reflux disease, unspecified whether esophagitis present K21.9 Fracture of hip S72.002A Encounter type: initial encounter Fracture type: closed Laterality: left
[2023-07-18] MEDS: cefTRIAXone 2,000 MG in sodium chloride 0.9% (plus) 50 ML 100 MG IV (12:10)
[2023-07-18] MEDS: HYDROmorphone 1 mg/mL INJ 1 mL 0.5 MG IVP (12:45)
[2023-07-18] MEDS: ondansetron 2 mg/ML SDV 2 mL 4 MG IVP (14:29)
[2023-07-18] MEDS: apixaban 5 mg Tablet 2.5 MG PO (21:00)
[2023-07-19] VITALS: BP 115/64; PULSE 92; RESP 18; TEMP 37.8; O2SAT 95
[2023-07-19 04:00] VITALS: BP 98/62; PULSE 90; RESP 17; TEMP 37.1; O2SAT 97
[2023-07-19] MEDS: HYDROcodone-acetaminophen 5-325 mg Tablet 1 TAB PO ×2 (04:43→09:08)
[2023-07-19 05:16] LABS: Basophils % 0.3 %; Eosinophils # 0.1 10^3/uL (0.0-0.8); Eosinophils % 0.5 %; Hematocrit 36.5 % (36-47); Lymphocytes # 1.2 10^3/uL (0.8-4.8); Lymphocytes % 11.2 %; Mean Corpuscular HGB Conc 32.6 g/dL (30-55); Mean Corpuscular Hemoglobin 29.9 pg (27-33); Mean Corpuscular Volume 91.7 fl (85-98); Mean Platelet Volume 10.3 fL (7.4-10.4); Monocytes # 0.9 10^3/uL (0.2-0.9); Monocytes % 8.9 %; Neutrophils # 8.13 10^3/uL (1.8-7.7); Neutrophils % 78.3 %; Nucleated Red Blood Cells % 0 %; Platelet Count 188 10^3/cmm (157-399); Red Blood Count 3.98 10^6/uL (3.85-5.65); Red Cell Distribution Width 13.7 % (12.1-15.1); White Blood Count 10.37 10^3/uL (3.29-11.43)
[2023-07-19 05:40] LABS: Anion Gap 16.1 (5-19); Blood Urea Nitrogen 13 mg/dL (8-23); Calcium 8.2 mg/dL (8.5-10.5); Carbon Dioxide 24 mmol/L (22-29); Chloride 95 mmol/L (98-107); Creatinine Clr Calc Pharmacy 45.4901; Glucose 125 mg/dL (65-115); Osmolality Calculated 274 mOsm/kg (285-295); Potassium 4.1 mmol/L (3.5-5.1); Sodium 131 mmol/L (136-145)
[2023-07-19 07:55] VITALS: BP 123/74; PULSE 96; RESP 17; TEMP 36.6; O2SAT 97
[2023-07-19 08:07] VITALS: PULSE 93; RESP 16; O2SAT 97
[2023-07-19] MEDS: pantoprazole DR 40 mg Tablet PO (09:00)
[2023-07-19] MEDS: metoprolol succinate ER (24 HR) 25 mg Tablet PO (09:00)
[2023-07-19] MEDS: sennosides 8.6 mg Tablet 17.1999999999999993 MG PO (09:00)
[2023-07-19] MEDS: apixaban 5 mg Tablet 2.5 MG PO (09:00)
--- NOTE | 2023-07-19 09:34 | PC.SOCIAL ---
IMM Update pg 2 of IMM updated and reviewed w/ patient and her daughter. Copy provided and copy dated, initialed and placed in chart.
--- NOTE | 2023-07-19 10:22 | P.PN_ITS ---
Subjective 2 Subjective: Patient on the phone talking also immature pain is controlled Vitals/I&O/Wt Last Vital Signs Temp 97.9 F 07/19/23 07:55 Pulse 93 07/19/23 08:07 Resp 16 07/19/23 08:07 BP 123/74 07/19/23 07:55 Pulse Ox 97 07/19/23 08:07 O2 Del Method Room Air 07/19/23 08:07 O2 Flow Rate 6 07/17/23 16:17 07/18/23 07/19/23 07/19/23 22:59 06:59 14:59 Intake Total 406 / 2343.5 500 / 500 Balance 406 / 2343.5 500 / 500 Weight last 48 hrs Weight 152 lb 4 oz Weight 150 lb 1.6 oz Physical Exam 2 Narrative: Patient sitting up talking on the phone Urinary Catheter Management: Hilton: Cath Placed During This Visit: yes, but has since been removed by the nurse Reason for Continuing Indwelling Catheter: Required Immobilization for Trauma or Surgery or Anesthesia Urinary Catheter Date of Insertion: 07/15/23 Urinary Catheter Time of Insertion: 22:51 Date Urinary Catheter Removed: 07/18/23 Time Urinary Catheter Discontinued: 05:48 Data 07/19/23 04:39 07/19/23 04:39 A&P Assessment and plan (1) Fracture of hip: Postop day 2 left hip hemiarthroplasty Discharge planning Qualifiers: Encounter type: initial encounter Fracture type: closed Laterality: l eft Qualified Code(s): S72.002A - Fracture of unspecified part of neck of left femur, initial encounter for closed fracture Attestations 2 Medical Necessity Statement*: Per primary Coding Level of Care Code Acute Code for [facility] Diagnoses Fracture of hip S72.002A Encounter type: initial encounter Fracture type: closed Laterality: left
--- NOTE | 2023-07-19 11:01 | PM.DCS ---
Discharge Providers Date of Admission: 07/15/23 22:13 Date of Discharge: July 19, 2023 Attending Provider at Admission: Josh Merino MD Attending Provider at Discharge: Hailey Lujan MD Primary Care Provider: Sid Banerjee DO Diagnoses at Discharge Discharge Diagnosis (1) Fracture of hip: Status: Acute Qualifiers: Encounter type: initial encounter Fracture type: closed Laterality: left Qualified Code(s): S72.002A - Fracture of unspecified part of neck of left femur, initial encounter for closed fracture Reason for Visit Reason for Visit: HIP PAIN Hospital Course Hospital Course 88-year female who presented to the hospital after sustaining a fall at home, she is fairly active for age, takes Xarelto for her A-fib, she was given 48 hours before her surgical intervention, Dr. Ott was consulted, patient went for left hip hemiarthroplasty, estimated blood loss 50 mL, no postoperative complications, patient did well postoperatively, did very well with physical therapy, patient is wanting to go home with a walker and a bedside commode which we will arrange. She may resume her Xarelto at the time of discharge I have given her stool softener along oxycodone for pain management. Her daughter lives with her 29/08, she is under supervision of her daughter she is against the idea of snf placement at this point. Physical Exam Narrative: Pleasant cooperative Did well with PT awake and alert nonfocal neuroexam GCS 15 Urinary Catheter Management: Hilton: Cath Placed During This Visit: yes, but has since been removed by the nurse Reason for Continuing Indwelling Catheter: Required Immobilization for Trauma or Surgery or Anesthesia Urinary Catheter Date of Insertion: 07/15/23 Urinary Catheter Time of Insertion: 22:51 Date Urinary Catheter Removed: 07/18/23 Time Urinary Catheter Discontinued: 05:48 Discharge Data Studies Completed and Pending Completed Studies During Hospitalization Category Date Time Status CT head wo con* [id number] Urgent Cat Scan 07/16/23 15:[address] hip LT wo con* [id number] Routine Cat Scan 07/16/23 12:07 Completed XR chest 1V portable [id number] Stat Exams 07/15/23 21:08 Completed XR hip LT 2-3V wo/w pel* [id number] Stat Exams 07/15/23 21:08 Completed Radiology Impressions Chest X-Ray 07/15/23 21:08 IMPRESSION: 1. Multifocal pulmonary nodules, similar to prior exam with a dominant right lower lobe 2.7 cm nodule, likely reflecting metastatic disease. 2. Cardiomegaly. Hip/Pelvis X-Ray 07/15/23 21:08 IMPRESSION: 1. Left subcapital impacted displaced hip fracture. 2. Scattered vascular calcifications. Hip CT 07/16/23 12:07 IMPRESSION: 1. Left femoral neck fracture, as described above. 2. Additional findings, as above. Head CT 07/16/23 15:[address]: 1[address] evidence of acute intracranial pathology. 2. Additional findings, as above. Laboratory Results WBC 10.37 10^3/uL (3.29-11.43) 07/19/23 04:39 RBC 3.98 10^6/uL (3.85-5.65) 07/19/23 04:39 Hgb 11.90 g/dL (11.27-16.99) 07/19/23 04:39 Hct 36.5 % (36-47) 07/19/23 04:39 MCV 91.7 fl (85-98) 07/19/23 04:39 MCH 29.9 pg (27-33) 07/19/23 04:39 MCHC 32.6 g/dL (30-55) 07/19/23 04:39 RDW 13.7 % (12.1-15.1) 07/19/23 04:39 Plt Count 188 10^3/cmm (157-399) 07/19/23 04:39 MPV 10.3 fL (7.4-10.4) 07/19/23 04:39 Neut % (Auto) 78.3 % 07/19/23 04:39 Lymph % (Auto) 11.2 % 07/19/23 04:39 [place] % (Auto) 8.9 % 07/19/23 04:39 Eos % (Auto) 0.5 % 07/19/23 04:39 Baso % (Auto) 0.3 % 07/19/23 04:39 Neut # (Auto) 8.13 10^3/uL (1.8-7.7) H 07/19/23 04:39 Lymph # (Auto) 1.2 10^3/uL (0.8-4.8) 07/19/23 04:39 [place] # (Auto) 0.9 10^3/uL (0.2-0.9) 07/19/23 04:39 Eos # (Auto) 0.1 10^3/uL (0.0-0.8) 07/19/23 04:39 Baso # (Auto) 0.0 10^3/uL (0.0-0.1) 07/19/23 04:39 Nucleated RBC % (auto) 0 % 07/19/23 04:39 Nucleated RBCs # 0.0 /100WBC 07/19/23 04:39 PT 16.10 SECONDS (12.1-14.9) H 07/15/23 21:19 INR 1.25 (0.8-1.2) H 07/15/23 21:19 Sodium 131 mmol/L (136-145) L 07/19/23 04:39 Potassium 4.1 mmol/L (3.5-5.1) 07/19/23 04:39 Chloride 95 mmol/L (98-107) L 07/19/23 04:39 Carbon Dioxide 24 mmol/L (22-29) 07/19/23 04:39 Anion Gap 16.1 (5-19) 07/19/23 04:39 BUN 13 mg/dL (8-23) 07/19/23 04:39 Creatinine 0.7 mg/dL (0.5-0.9) 07/19/23 04:39 GFR Calculation Not Reportable 07/19/23 04:39 Glucose 125 mg/dL (65-115) H 07/19/23 04:39 Calculated Osmolality 274 mOsm/kg (285-295) L 07/19/23 04:39 Calcium 8.2 mg/dL (8.5-10.5) L 07/19/23 04:39 Phosphorus 4.4 mg/dL (2.5-4.5) 07/16/23 02:33 Magnesium 1.8 mg/dL (1.7-2.3) 07/16/23 02:33 Total Bilirubin 0.4 mg/dL (0.15-1.2) 07/15/23 22:03 AST 17 U/L (0-32) 07/15/23 22:03 ALT 11 U/L (0-33) 07/15/23 22:03 Alkaline Phosphatase 121 U/L (35-105) H 07/15/23 22:03 Total Protein 7.4 g/dL (6.6-8.7) 07/15/23 22:03 Albumin 3.5 g/dL (3.5-5.2) 07/15/23 22:03 Globulin 3.9 g/dL (1.3-4.6) 07/15/23 22:03 Vitals Last Vital Signs Temp 97.9 F 07/19/23 07:55 Pulse 93 07/19/23 08:07 Resp 16 07/19/23 08:07 BP 123/74 07/19/23 07:55 Pulse Ox 97 07/19/23 08:07 O2 Del Method Room Air 07/19/23 08:07 O2 Flow Rate 6 07/17/23 16:17 Discharge Plan Discharge Patient Disposition: Home Condition: Stable Prescriptions: New oxycodone 5 mg tablet 5 mg PO DAILY PRN (Reason: pain) Qty: 7 0RF sennosides [senna] 8.6 mg Tablet 17.2 mg PO BID Qty: 10 0RF Continued ascorbic acid (vitamin C) 1,000 mg tablet 500 mg PO DAILY One-A-Day Women's 50 Plus 400-20 mcg tablet 1 tab PO DAILY metoprolol succinate 25 mg tablet extended release 24 hr 25 mg PO DAILY Qty: 90 3RF rivaroxaban 15 mg tablet 15 mg PO DAILY@04 Qty: 90 0RF Rx Instructions: Must make an appointment for further refills nitroglycerin 0.4 mg tablet, sublingual 0.4 mg sublingual Q5MIN PRN (Reason: Chest Pain) albuterol sulfate 90 mcg/actuation HFA aerosol inhaler 2 puff INHALATION Q6H PRN (Reason: Shortness Of Breath) pantoprazole 40 mg tablet,delayed release (DR/EC) 40 mg PO BID Qty: 0 0RF Held furosemide 20 mg tablet 20 mg PO DAILY@04 Hold Instructions: Resume on 08/09/23. Discharge Orders: Discharge Order (Routine); Ordered 07/19/23 Ordered By: Hailey Lujan Other Ambulatory Orders: DME: Blaise (Order) Location: None Selected Ordered By: Hailey Lujan Referrals: Sid Banerjee DO [Primary Care Provider] - David Ott DO [Physician] - 2 weeks Patient Instructions: Opioid Safety Activity Restrictions/Additional Instructions: You are being discharged from the hospital today during which time you have been under the care of Etelvina. You had a left hip fracture. You were treated for this injury with left hip hemiarthroplasty. You may resume you normal diet (including any special diets as directed by your primary doctor) as well as your home medications. You should follow up with you primary doctor if you have any questions regarding medication you took prior to your stay in the hospital. You may take your pain medication as prescribed. After the first few days, take your pain medication as needed. Do not drive or drink alcohol while taking your pain medication. Your injury may increase your risk of developing a blood clot,or DVT, in your arm or leg. This could potentially dislodge and travel to your lungs and become a life threatening condition called apulmonary embolus,or PE. You take your home medication Xarelto/rivaroxaban 50 mg daily to be taken to prevent this. Frequent movement of the feet will also help prevent this from occurring. If you develop any new or worsening cough, chestpain, bloody sputum or shortness of breath, call 911 or go to the EmergencyRoom. Always keep your surgical incision/dressing clean and dry. If you experience increasing pain at your incision site, redness, swelling, increasing discharge, foul odors, or fevers (greater than 100.4), night sweats or chills you should call the office at the above number. If you feel this is an emergency you should be evaluated in the Emergency Department of a nearby hospital. Orthopedic Patient Instructions Summary: Weight Bearing: Weight-bear as tolerated Activity: As tolerated. Diet: Regular. Wound Care: Keep dressing clean and dry. Anticoagulation: Rivaroxaban Pain Medication: Take only as needed. Ice, rest and elevation will be of great benefit. Please plan to follow-up zuleima Ott in 2 weeks. You will need to call the clinic [phone] to schedule this visit. Thank you far allowing me to participate in your care. Do not hesitate to call the office with any questions or concerns. Discharge Attestations Time Spent in Discharge Care*: greater than 30 min Quality Metrics Clinical Quality Measures [ No reported AMI, CVA or VTE this stay] Coding Level of Care Code Acute Code for [facility] Diagnoses Fracture of hip S72.002A Encounter type: initial encounter Fracture type: closed Laterality: left
[2023-07-19] MEDS: cefTRIAXone 2,000 MG in sodium chloride 0.9% (plus) 50 ML 100 MG IV (11:10)
[2023-07-19 11:20] VITALS: BP 111/64; PULSE 85; RESP 17; TEMP 36.4; O2SAT 97
[2023-07-19 12:12] VITALS: BP 111/64; PULSE 85; RESP 17; TEMP 36.4; O2SAT 97
== END 2023-07-19 12:12 | disposition home health service (06) | DRG 522 ==
LOC: ER 22:21 → MEDSURG 22:56
PROVIDERS: Orthopaedic Surgery; Admitting Provider Internal Medicine; Emergency Provider Emergency Medicine; PCP Family Medicine; Visit Provider Internal Medicine
PROC: 0SRS0JA Replacement of Left Hip Joint, Femoral Surface with Synthetic Substitute, Uncemented, Open Approach (ICD-10-PCS; CPT 27125; principal; 2023-07-17 16:30)
DX: S72.002A Fracture of unspecified part of neck of left femur, initial encounter for closed fracture (principal); I48.20 Chronic atrial fibrillation, unspecified; C18.9 Malignant neoplasm of colon, unspecified; W19.XXXA Unspecified fall, initial encounter; Z79.01 Long term (current) use of anticoagulants; K21.9 Gastro-esophageal reflux disease without esophagitis; I10 Essential (primary) hypertension; E78.5 Hyperlipidemia, unspecified; Z86.73 Personal history of transient ischemic attack (TIA), and cerebral infarction without residual deficits; C55 Malignant neoplasm of uterus, part unspecified; R91.8 Other nonspecific abnormal finding of lung field
CPT/HCPCS: 36415; 51702; 70450; 71045; 73502; 73700; 80048; 80053; 83735; 84100; 85025; 85610; 93005; 96374; 96375; 97110; 97116; 97161; 97165; 97530; 99285; C1776; J0131; J0690; J0696; J1100; J1170; J2405; J2704; J3010; J3490; J7030; J7799

== ENCOUNTER → 2023-08-01 08:32 | Outpatient (BNVA) | payer MEDICARE, MEDICAID, SELFPAY | PROVIDERS: PCP Family Medicine; Visit Provider Orthopaedic Surgery | DX: Z48.89 Encounter for other specified surgical aftercare (principal); M25.552 Pain in left hip | CPT/HCPCS: 73502; 99024 ==

== ENCOUNTER → 2023-09-19 11:18 | Outpatient (BNVA) | payer MEDICARE, MEDICAID, SELFPAY | PROVIDERS: PCP Family Medicine; Visit Provider Orthopaedic Surgery | DX: S72.009D Fracture of unspecified part of neck of unspecified femur, subsequent encounter for closed fracture with routine healing (principal); X58.XXXD Exposure to other specified factors, subsequent encounter | CPT/HCPCS: 73502; 99024 ==

== ENCOUNTER → 2023-10-24 08:23 | Outpatient (BNVA) | payer MEDICARE, MEDICAID, SELFPAY | PROVIDERS: PCP Family Medicine; Visit Provider Orthopaedic Surgery | DX: S72.002D Fracture of unspecified part of neck of left femur, subsequent encounter for closed fracture with routine healing (principal); X58.XXXD Exposure to other specified factors, subsequent encounter | CPT/HCPCS: 73502; 99024 ==

== ENCOUNTER 2024-03-25 22:39 | Emergency (ER) | payer MEDICARE, MEDICAID, SELFPAY ==
[2024-03-25 22:47] VITALS: BP 159/85; PULSE 89; RESP 16; TEMP 36.6; O2SAT 97; BMI 16.6
[2024-03-25 22:54] VITALS: BP 149/89; PULSE 86; O2SAT 98
--- NOTE | 2024-03-25 23:10 | XRR_ITS ---
PROCEDURE INFORMATION: Exam: XR Chest Exam date and time: 03/25/2024 11:20 PM Age: 88 years old Clinical indication: Other: Weakness TECHNIQUE: Imaging protocol: Radiologic exam of the chest. Views: 1 view. COMPARISON: CR XR chest 1V portable [id number] 07/15/2023 9:23 PM FINDINGS: Lungs: Redemonstrated the multifocal pulmonary nodules measuring up to 4 cm in the right lower lung zone, slightly increased in size when compared to prior study. Pleural spaces: Unremarkable. No pleural effusion. No pneumothorax. Heart/Mediastinum: The heart is enlarged. Vasculature: There are aortic arch calcifications. Bones/joints: Moderate degenerative disease of bilateral acromioclavicular joints. There are moderate degenerative changes of the glenohumeral joints. Demineralization of the visualized bones, limiting sensitivity for nondisplaced fractures. XR/XR chest 1V portable [id number] IMPRESSION: Multifocal pulmonary nodules, slightly increased in size when compared to prior study largest in the right lower lobe, likely representing metastasis
--- NOTE | 2024-03-25 23:11 | ED_ITS ---
HPI - Weakness 2 General: Chief complaint: Weakness Stated complaint: Weakness Time Seen by Provider: 03/25/24 22:57 History of Present Illness: Patient presents to her the ER with her daughter at bedside. Patient daughter said that she not been herself for the last couple weeks she has not been eating as much as she normally has been. Patient daughter says she weighs 103 pounds. Patient was recently discharged from [facility] couple months ago and then put in the correction for rehab when she was shortly discharged from there. The daughter took her off all of her medicines but she says she was overmedicated and could not function. So she has not been taking any prescription medicines for the last 2 months. Patient is alert oriented and has no complaints at this time. Review of Systems 2 General: Reports: 10 or more systems reviewed and unremarkable except in HPI and below PFSH ED 2 PFSH: Medical History Atrial fibrillation with rapid ventricular response Fracture of hip TIA (transient ischemic attack) Hyperlipidemia HTN (hypertension) Urinary incontinence GERD (gastroesophageal reflux disease) Atrial fibrillation Hx of transient cerebral ischemia Surgical History History of hysterectomy Family History Other CAD (coronary artery disease) Cancer Diabetes Denies family history of Anesthesia complication Bleeding disorder Social History Smoking and tobacco/nicotine status: never used tobacco/nicotine Alcohol intake: never Substance/Drug Use: never Physical Exam 2 Const: COMMON NORMALS: no acute distress, average body habitus, no limitations, healthy appearing, alert and well nourished HENMT: COMMON NORMALS: normocephalic, atraumatic, hearing grossly normal bilaterally, external ears normal, Normal external nose present, moist oral mucous membranes and oropharynx normal HEAD & SCALP: normocephalic and atraumatic NOSE: Normal external nose present EXTERNAL EAR: Yes external ears normal Eye: COMMON NORMALS: Equal, round and reactive pupils present, EOMs intact bilaterally, conjunctivae normal and no scleral icterus CONJUNCTIVA: Yes conjunctivae normal PUPIL: Yes Equal, round and reactive pupils present Neck/C-Spine: COMMON NORMALS: no JVD Resp: COMMON NORMALS: normal respiratory effort, No retractions, No use of accessory muscles and clear to auscultation bilaterally AUSCULTATION: clear to auscultation bilaterally Cardio: COMMON NORMALS: no JVD, regular rate, regular rhythm, S1 normal heart sound present, S2 normal heart sound present, No gallops present (Cardio), No clicks present (Cardio), No murmurs present (Cardio) and No rub (Cardio) R ATE: regular rate RHYTHM: regular rhythm HEART SOUNDS: S1 normal heart sound present and S2 normal heart sound present GI: COMMON NORMALS: Normal to inspection, nondistended, normoactive bowel sounds present, Soft to palpation, non-tender, No hepatosplenomegaly present and no masses PALPATION: Yes Soft to palpation and Yes No hepatosplenomegaly present Extremity: NARRATIVE EXTREMITY EXAM: Negative. Pretibial edema bilateral lower extremities Neuro: SENSORIUM/ORIENTATION: Yes alert Course 2 Vital Signs: Vital signs: Vital Signs Temperature 97.8 F 03/25/24 22:47 Pulse Rate 85 03/26/24 00:30 Respiratory Rate 16 03/25/24 22:47 Blood Pressure 142/88 03/26/24 00:30 Pulse Oximetry 98 03/26/24 00:30 Oxygen Delivery Me thod Room Air 03/26/24 00:00 MDM - Weakness Medical Decision Making Patient had evaluation lab work urinalysis and chest x-ray showed white count 8.6, hemoglobin 10.3, BUN/creatinine 45 1.6, chest x-ray multifocal pulmonary nodules slightly enlarged compared to prior x-ray. Urinalysis showed positive nitrates positive 3+ leukocyte Estrace, greater than 100 white cells, patient be given Cipro here in ER and discharged home to her daughter with with a prescription for Cipro. Medical Records I reviewed the patient's medical records. Lab Data I reviewed the patient's lab results. 03/25/24 23:15 03/25/24 23:15 Radiology Impressions Chest X-Ray 03/25/24 23:10 IMPRESSION: Multifocal pulmonary nodules, slightly increased in size when compared to prior study largest in the right lower lobe, likely representing metastasis Laboratory Results WBC 8.60 10^3/uL (3.29-11.43) 03/25/24 23:15 RBC 3.64 10^6/uL (3.85-5.65) L 03/25/24 23:15 Hgb 10.30 g/dL (11.27-16.99) L 03/25/24 23:15 Hct 33.2 % (36-47) L 03/25/24 23:15 MCV 91.2 fl (85-98) 03/25/24 23:15 MCH 28.3 pg (27-33) 03/25/24 23:15 MCHC 31.0 g/dL (30-55) 03/25/24 23:15 RDW 15.5 % (12.1-15.1) H 03/25/24 23:15 Plt Count 319 10^3/cmm (157-399) 03/25/24 23:15 MPV 9.4 fL (7.4-10.4) 03/25/24 23:15 Neut % (Auto) 67.1 % 03/25/24 23:15 Lymph % (Auto) 18.4 % 03/25/24 23:15 [place] % (Auto) 7.8 % 03/25/24 23:15 Eos % (Auto) 5.5 % 03/25/24 23:15 Baso % (Auto) 0.5 % 03/25/24 23:15 Neut # (Auto) 5.78 10^3/uL (1.8-7.7) 03/25/24 23:15 Lymph # (Auto) 1.6 10^3/uL (0.8-4.8) 03/25/24 23:15 [place] # (Auto) 0.7 10^3/uL (0.2-0.9) 03/25/24 23:15 Eos # (Auto) 0.5 10^3/uL (0.0-0.8) 03/25/24 23:15 Baso # (Auto) 0.0 10^3/uL (0.0-0.1) 03/25/24 23:15 Nucleated RBC % (auto) 0 % 03/25/24 23:15 Nucleated RBCs # 0.0 /100WBC 03/25/24 23:15 Sodium 141 mmol/L (136-145) 03/25/24 23:15 Potassium 4.3 mmol/L (3.5-5.1) 03/25/24 23:15 Chloride 101 mmol/L (98-107) 03/25/24 23:15 Carbon Dioxide 26 mmol/L (22-29) 03/25/24 23:15 Anion Gap 18.3 (5-19) 03/25/24 23:15 BUN 45 mg/dL (8-23) H 03/25/24 23:15 Creatinine 1.6 mg/dL (0.5-0.9) H 03/25/24 23:15 GFR Calculation Not Reportable 03/25/24 23:15 Glucose 120 mg/dL (65-115) H 03/25/24 23:15 Calculated Osmolality 305 mOsm/kg (285-295) H 03/25/24 23:15 Calcium 10.0 mg/dL (8.5-10.5) 03/25/24 23:15 Magnesium 2.1 mg/dL (1.7-2.3) 03/25/24 23:15 Total Bilirubin 0.2 mg/dL (0.15-1.2) 03/25/24 23:15 AST 16 U/L (0-32) 03/25/24 23:15 ALT 11 U/L (0-33) 03/25/24 23:15 Alkaline Phosphatase 95 U/L (35-105) 03/25/24 23:15 NT-Pro-B Natriuret Pep 2603 pg/mL (0-450) H 03/25/24 23:15 Total Protein 7.6 g/dL (6.6-8.7) 03/25/24 23:15 Albumin 3.1 g/dL (3.5-5.2) L 03/25/24 23:15 Globulin 4.5 g/dL (1.3-4.6) 03/25/24 23:15 TSH 3.03 uIU/mL (0.27-4.20) 03/25/24 23:15 Urine Color Yellow (Yellow) 03/26/24 00:17 Urine Appearance Cloudy (CLEAR) A 03/26/24 00:17 Urine pH 6.0 (5-7) 03/26/24 00:17 Ur Specific [place] 1.016 (1.005-1.030) 03/26/24 00:17 Urine Protein 1+ (Negative) A 03/26/24 00:17 Urine Glucose (UA) Negative (Normal) 03/26/24 00:17 Urine Ketones Negative (Negative) 03/26/24 00:17 Urine Blood Trace (Negative) A 03/26/24 00:17 Urine Nitrate Positive (Negative) A 03/26/24 00:17 Urine Bilirubin Negative (Negative) 03/26/24 00:17 Urine Urobilinogen 0.2 mg/dL (Negative) 03/26/24 00:17 Ur Leukocyte Esterase 3+ (Negative) A 03/26/24 00:17 Urine RBC 0-2 /hpf (0-2) 03/26/24 00:17 Urine WBC >100 /hpf (0-5) H 03/26/24 00:17 Ur Squamous Epith Cells 0-5 /hpf (0-5) 03/26/24 00:17 Amorphous Sediment Not Reportable 03/26/24 00:17 Urine Bacteria 4+ /hpf (NONE) H 03/26/24 00:17 Hyaline Casts 9.07 /lpf 03/26/24 00:17 All radiology interpretation(s) finalized by discharge Discharge Plan Discharge Patient Disposition: Home Clinical Impression: Generalized weakness Urinary tract infection Qualifiers: Urinary tract infection type: acute cystitis Hematuria presence: with hematuria Qualified Code(s): N30.01 - Acute cystitis with hematuria Condition: Stable Prescriptions: New ciprofloxacin HCl 500 mg tablet 500 mg PO Q12H Qty: 20 0RF No Action One-A-Day Women's 50 Plus 400-20 mcg tablet 1 tab PO DAILY metoprolol succinate 25 mg tablet extended release 24 hr 25 mg PO DAILY Qty: 90 3RF rivaroxaban 15 mg tablet 15 mg PO DAILY@04 Qty: 90 0RF Rx Instructions: Must make an appointment for further refills furosemide 20 mg tablet 20 mg PO DAILY@04 nitroglycerin 0.4 mg tablet, sublingual 0.4 mg sublingual Q5MIN PRN (Reason: Chest Pain) albuterol sulfate 90 mcg/actuation HFA aerosol inhaler 2 puff INHALATION Q6H PRN (Reason: Shortness Of Breath) pantoprazole 40 mg tablet,delayed release (DR/EC) 40 mg PO BID Qty: 0 0RF senna 8.6 mg Tablet 17.2 mg PO BID Qty: 10 0RF Discharge Orders: Discharge ED (Routine); Ordered 03/26/24 Ordered By: Piotr Nuñez Referrals: Sid Banerjee DO [Primary Care Provider] - 1 week Patient Instructions: Urinary Tract Infection in Older Adults (ED), Weakness (Generalized) Activity Restrictions/Additional Instructions: Your evaluation ER showed you have a urinary tract infection, you are mildly anemic have mild kidney injury. Please take the antibiotics as directed. Please follow-up with your family practice physician within next 7 days for further evaluation treatment. You also need to discuss with him that he quit all your medicine as he may want you to get back on some of them. Activity restrictions/additional instructions: [facility]. Please realize that you were seen in the emergency department and that we are providing you with an emergency medical screening exam and this may not be a complete and all exclusive of all testing and/or medical workup we may need to determine your element or severity of your illness. It is very important that you follow-up as instructed with your primary care provider or specialist for the additional evaluation and to discuss your medical treatment plan. You may return to the emergency department should you have concerns or if your condition changes or worsens in any way. Print Language: Kazakh Coding Level of Care Code ED Administrative Services Assistant for Chg Fwd Related Data Home Medications ?Medication ?Instructions ?Recorded ?Confirmed furosemide 20 mg tablet 20 mg PO DAILY@04 01/15/20 0 10/24/23 Held on 07/19/23. Instructions: Resume on 08/09/23. ctyxefoomrwo-rvjrncdo-vnmbsus-folic 1 tab PO DAILY 10/24/23 acid 400 mcg-vit K1 20 mcg tablet (One-A-Day Women's 50 Plus) albuterol sulfate 90 mcg/actuation 2 puff inhalation Q 6H PRN 04/10/21 10/24/23 aerosol inhaler Shortness Of Breath nitroglycerin 0.4 mg sublingual 0.4 mg sublingual Q5MI N PRN Chest 04/10/21 10/24/23 tablet Pain Previous Rx's ?Medication ?Instructions ?Recorded metoprolol succinate 25 mg 25 mg PO DAILY #90 tabs tablet,extended release 24 hr pantoprazole 40 mg tablet,delayed 40 mg PO BID #0 tabs 04/10/21 release rivaroxaban 15 mg tablet 15 mg PO DAILY@04 #90 tabs 1 02/22/21 sennosides 8.6 mg tablet (senna) 17.2 mg (2 x 8.6 mg) PO BID #10 07/19/23 tabs ciprofloxacin HCl 500 mg tablet 500 mg PO Q12H #20 tab s 03/26/24 Allergies Allergy/AdvReac Type Severity Reaction Status Date / Time aspirin Allergy Unconscious Verified 10/24/23 08:40
[2024-03-25 23:27] LABS: Basophils % 0.5 %; Eosinophils # 0.5 10^3/uL (0.0-0.8); Eosinophils % 5.5 %; Hematocrit 33.2 % (36-47); Lymphocytes # 1.6 10^3/uL (0.8-4.8); Lymphocytes % 18.4 %; Mean Corpuscular Hemoglobin 28.3 pg (27-33); Mean Corpuscular Volume 91.2 fl (85-98); Mean Platelet Volume 9.4 fL (7.4-10.4); Monocytes # 0.7 10^3/uL (0.2-0.9); Monocytes % 7.8 %; Neutrophils # 5.78 10^3/uL (1.8-7.7); Neutrophils % 67.1 %; Nucleated Red Blood Cells % 0 %; Platelet Count 319 10^3/cmm (157-399); Red Blood Count 3.64 10^6/uL (3.85-5.65); Red Cell Distribution Width 15.5 % (12.1-15.1)
[2024-03-25 23:32] VITALS: BP 139/79; PULSE 88; O2SAT 98
[2024-03-25 23:50] LABS: Alanine Aminotransferase 11 U/L (0-33); Albumin Level 3.1 g/dL (3.5-5.2); Alkaline Phosphatase 95 U/L (35-105); Anion Gap 18.3 (5-19); Aspartate Amino Transferase 16 U/L (0-32); Blood Urea Nitrogen 45 mg/dL (8-23); Carbon Dioxide 26 mmol/L (22-29); Chloride 101 mmol/L (98-107); Creatinine Clr Calc Pharmacy 17.5808; Globulin 4.5 g/dL (1.3-4.6); Glucose 120 mg/dL (65-115); Magnesium 2.1 mg/dL (1.7-2.3); NT Pro B Type Natriuretic Pept 2603 pg/mL (0-450); Osmolality Calculated 305 mOsm/kg (285-295); Potassium 4.3 mmol/L (3.5-5.1); Sodium 141 mmol/L (136-145); Thyroid Stimulating Hormone 3.03 uIU/mL (0.27-4.20); Total Bilirubin 0.2 mg/dL (0.15-1.2); Total Protein 7.6 g/dL (6.6-8.7)
[2024-03-26] VITALS: PULSE 9; O2SAT 98
[2024-03-26 00:27] LABS: Bilirubin Urine Negative (Negative); Blood Urine Trace (Negative); Glucose Urine UA Negative (Normal); Ketones Urine Negative (Negative); Leukocyte Esterase Urine 3+ (Negative); Nitrate Urine Positive (Negative); Protein Urine 1+ (Negative); Specific Gravity, Urine 1.016 (1.005-1.030); Urine Appearance Cloudy (CLEAR); Urine Color Yellow (Yellow); Urobilinogen Urine 0.2 mg/dL (Negative)
[2024-03-26 00:30] VITALS: BP 142/88; PULSE 85; O2SAT 98
[2024-03-26 00:31] LABS: Add Urine Microscopic? YES; Bacteria Urine 4+ /hpf; Hyaline Casts Urine 9.07 /lpf; RBC Urine 0-2 /hpf (0-2); Squamous Epithelial Cell Urine 0-5 /hpf (0-5); WBC Urine >100 /hpf (0-5)
[2024-03-26 00:45] LABS: Add Urine Culture? Yes; UA Slide Review UA Slide Review Perf
[2024-03-26] MEDS: ciprofloxacin 500 mg Tablet PO (01:09)
[2024-03-26 01:10] VITALS: BP 144/84; PULSE 85; O2SAT 99
== END 2024-03-26 01:11 | disposition home or self-care (01) ==
PROVIDERS: Emergency Provider Emergency Medicine; PCP Family Medicine
DX: R53.1 Weakness (principal); N30.01 Acute cystitis with hematuria; I10 Essential (primary) hypertension; E78.5 Hyperlipidemia, unspecified; Z86.73 Personal history of transient ischemic attack (TIA), and cerebral infarction without residual deficits
CPT/HCPCS: 36415; 71045; 80053; 81001; 83735; 83880; 84443; 85025; 87077; 87086; 87186; 99284